=== PATIENT | male | born 1985 | race Caucasian/White ===

== ENCOUNTER 2018-05-20 17:40 | Observation (INO) | payer BC ==
[2018-05-20] MEDS ORDERED: NITROGLYCERIN 0.4 MG/TAB SL ONE (18:14)
[2018-05-20] MEDS ORDERED: NA CHLORIDE 0.9% 1,000 ML ONE (18:14)
[2018-05-20 18:23] LABS: Absolute Lymphocytes (CBC) 2.8 K/uL (0.7-4.9); Absolute Monocytes 0.7 K/uL (0.1-1.3); Absolute Neutrophil 5.1 K/uL (1.8-8.0); Basophils % 0.5 % (0-1.3); Eosinophils % 2.9 % (0-4.4); Hematocrit 41.5 % (39.6-49.0); MCV 88.6 fL (80-100); MPV 8.3 fL (7.6-11.3); Monocytes % 7.9 % (3.3-12.3); RBC Red Blood Cell Count 4.69 M/uL (4.33-5.43)
[2018-05-20 18:27] LABS: Protime INR 0.94
[2018-05-20] MEDS ORDERED: ACETAMINOPHEN 500 MG TAB ONE (18:43)
[2018-05-20 18:52] LABS: ALT/SGPT 59 U/L (12-78); AST/SGOT 33 U/L (15-37); Albumin 3.9 g/dL (3.4-5.0); Alkaline Phosphatase 92 U/L (45-117); BUN Blood Urea Nitrogen 11 mg/dL (7-18); Bicarbonate 27 mmol/L (21-32); Bilirubin Direct < 0.1 mg/dL (0-0.2); Bilirubin Total 0.4 mg/dL (0.2-1.0); Glucose Level 110 mg/dL (74-106); Magnesium 1.8 mg/dL (1.8-2.4); NT PRO-BNP 12 pg/mL (<125); Protein, Total 7.9 g/dL (6.4-8.2); Sodium Level 138 mmol/L (136-145); Troponin (Emerg Dept Use Only) < 0.02 ng/mL (0.0-0.045)
[2018-05-20 18:58] LABS: Urine Blood NEGATIVE (NEG); Urine Glucose NEGATIVE (NEG); Urine Protein NEGATIVE (NEG)
[2018-05-20] MEDS ORDERED: METOPROLOL TAR 25 MG TAB ONE (19:04)
[2018-05-20] MEDS ORDERED: ASPIRIN 81 MG CHEWABLE TABLET ONE (19:04)
[2018-05-20 19:05] LABS: Barbiturates NEGATIVE (NEGATIVE); Benzodiazepines NEGATIVE (NEGATIVE); Cocaine NEGATIVE (NEGATIVE); METHAMPHETAM NEGATIVE (NEGATIVE); Methadone NEGATIVE (NEGATIVE); Opiates NEGATIVE (NEGATIVE); Phencyclidine NEGATIVE (NEGATIVE); THC Cannibis NEGATIVE (NEGATIVE)
--- NOTE | 2018-05-20 19:18 | RAD REPORT ---
EXAM DESCRIPTION: RAD - Chest Single View - 05/20/2018 6:21 pm CLINICAL HISTORY: Chest pain COMPARISON: None. TECHNIQUE: AP portable chest image was obtained 1815 hours . FINDINGS: Lung volumes are low accentuating lung markings. No peripheral mass, consolidation or fail ure. Heart and vasculature are normal. No measurable pleural effusion and no pneumothorax. No acute b mayuri abnormality seen. No acute aortic findings suspected. IMPRESSION: No acute cardiopulmonary process.
--- NOTE | 2018-05-20 20:50 | ER ---
Nurse's Notes [facility] Name: Raman Aragon Age: 32 yrs Sex: Male : 1985 Arrival Date: 05/20/2018 Time: 17:41 Bed 23 Private MD: Diagnosis: Chest pain, unspecified;Abnormal electrocardiogram [ECG] [EKG] Presentation: 05/20 17:47 Transition of care: patient was not received from another setting of care. aa5 17:47 Method Of Arrival: Ambulatory aa5 17:47 Presenting complaint: Patient states: mid-sternal chest pressure that began this aa5 morning. Pt states "my blood pressure was 180/110 this morning". Pt also reports SOB. Onset of symptoms was May 20, 2018. Risk Assessment: Do you want to hurt yourself or someone else? Patient reports no desire to harm self or others. Initial Sepsis Screen: Does the patient meet any 2 criteria? No. Patient's initial sepsis screen is negative. Does the patient have a suspected source of infection? No. Patient's initial sepsis screen is negative. Care prior to arrival: None. 17:47 Acuity: JOSÉ MANUEL 3 aa5 Historical: - Allergies: 17:47 No Known Allergies; aa5 - PMHx: 17:47 None; aa5 - PSHx: 17:47 Cholecystectomy; aa5 - Immunization history:: Flu vaccine is not up to date. - Social history:: Smoking status: Patient uses tobacco products, smokes one pack cigarettes per day. - Ebola Screening: : No symptoms or risks identified at this time. Screenin:00 Abuse screen: Denies threats or abuse. Denies injuries from another. Nutritional mg2 screening: No deficits noted. Tuberculosis screening: No symptoms or risk factors identified. Fall Risk IV access (20 points). Assessment: 18:00 General: Appears in no apparent distress. comfortable, Behavior is calm, cooperative. mg2 Pain: Complains of pain in central chest Pain does not radiate. Pain currently is 5 out of 10 on a pain scale. Quality of pain is described as pressure, Pain began gradually, 10 in the morning today Is intermittent. Neuro: Level of Consciousness is awake, alert, obeys commands, Oriented to person, place, time, situation. Cardiovascular: Capillary refill < 3 seconds Patient's skin is warm and dry. Respiratory: Airway is patent Respiratory effort is even, unlabored, Respiratory pattern is regular, symmetrical. GI: No signs and/or symptoms were reported involving the gastrointestinal system. : No signs and/or symptoms were reported regarding the genitourinary system. EENT: No signs and/or symptoms were reported regarding the EENT system. Derm: Skin is intact, is healthy with good turgor, Skin is pink, warm \\T\\ dry. normal. Musculoskeletal: No signs and/or symptoms reported regarding the musculoskeletal system. Vital Signs: 17:50 BP 151 / 97; Pulse 90; Resp 18 S; Temp 99.1(O); Pulse Ox 99% on R/A; Weight 96.16 kg aa5 (R); Height 5 ft. 10 in. (177.80 cm) (R); Pain 6/10; 18:32 BP 138 / 86; Pulse 92; Resp 18; Pulse Ox 97% on R/A; Pain 5/10; mg2 20:00 BP 138 / 91; Pulse 81; Resp 18; Pulse Ox 98% on R/A; mg2 21:16 BP 138 / 85; Pulse 75; Resp 18; Pulse Ox 100% on R/A; mg2 22:18 BP 131 / 93; Pulse 78; Resp 18; Pulse Ox 100% on R/A; Pain 6/10; mg2 17:50 Body Mass Index 30.42 (96.16 kg, 177.80 cm) aa5 ED Course: 17:41 Patient arrived in ED. tw3 17:47 Arm band placed on. aa5 17:48 Dyllan Servin PA is PHCP. cp 17:48 Holland Mcgregor MD is Attending Physician. cp 17:55 Triage completed. aa5 17:59 Ankit Dotson, ELIA is Primary Nurse. mg2 18:00 No provider procedures requiring assistance completed. Inserted saline lock: 20 gauge mg2 in right antecubital area, using aseptic technique. Blood collected. Patient maintains SpO2 saturation greater than 95% on room air. 18:02 Patient has correct armband on for positive identification. front desk monitor on. Pulse mg2 ox on. NIBP on. 18:05 EKG done, by chemistry technician. reviewed by Dyllan TRACY. 3 18:17 X-ray completed. Portable x-ray completed in exam room. Patient tolerated procedure ml well. 18:21 XRAY Chest (1 view) In Process Unspecified. EDMS 20:49 Tara Alonso MD is Hospitalizing Provider. cp 22:32 Patient admitted, IV remains in place. mg2 Administered Medications: 18:11 Drug: NS 0.9% 1000 ml Route: IV; Rate: 1 bolus; Site: right antecubital; mg2 20:07 Follow up: Response: No adverse reaction; IV Status: Completed infusion mg2 18:11 Drug: Nitroglycerin 0.4 mg Route: Sublingual; mg2 18:26 Drug: Nitroglycerin 0.4 mg Route: Sublingual; mg2 20:06 Follow up: Response: No adverse reaction mg2 18:44 Drug: Tylenol 1000 mg Route: PO; mg2 20:05 Follow up: Response: No adverse reaction; Marked relief of symptoms mg2 20:05 Follow up: Response: No adverse reaction; Marked relief of symptoms mg2 19:03 Drug: Metoprolol 25 mg Route: PO; mg2 20:05 Follow up: Response: No adverse reaction; Marked relief of symptoms mg2 19:03 Drug: Aspirin Chewable Tablet 324 mg Route: PO; mg2 20:06 Follow up: Response: No adverse reaction; Marked relief of symptoms mg2 22:26 Drug: morphine 2 mg Route: IVP; Site: right antecubital; mg2 22:33 Follow up: Response: No adverse reaction mg2 Outcome: 20:49 Decision to Hospitalize by Provider. cp 22:32 Admitted to Tele accompanied by tech, via wheelchair, room 404, with chart, Report mg2 called to ELIA Mcallister 22:32 Condition: stable 22:32 Instructed on the need for admit, Demonstrated understanding of instructions. 22:50 Patient left the ED. mg2 Signatures: Dispatcher [employer] Glory Garcia Audri, RN RN aa5 Dyllan Servin PA PA cp Erlin, Tia tw3 Ankit Dotson RN RN mg2 Queta Townsend 3
--- NOTE | 2018-05-20 20:50 | EDPHYS ---
Physician Documentation [facility] Name: Raman Aragon Age: 32 yrs Sex: Male : 1985 Arrival Date: 05/20/2018 Time: 17:41 Bed 23 Private MD: ED Physician Holland Mcgregor HPI: 05/20 18:10 This 32 yrs old Male presents to ER via Ambulatory with complaints of Chest cp Pain. Historical: - Allergies: 17:47 No Known Allergies; aa5 - PMHx: 17:47 None; aa5 - PSHx: 17:47 Cholecystectomy; aa5 - Immunization history:: Flu vaccine is not up to date. - Social history:: Smoking status: Patient uses tobacco products, smokes one pack cigarettes per day. - Ebola Screening: : No symptoms or risks identified at this time. ROS: 18:15 Constitutional: Negative for body aches, chills, fever, poor PO intake. cp 18:15 Eyes: Negative for injury, pain, redness, and discharge. cp 18:15 ENT: Negative for drainage from ear(s), ear pain, sore throat, difficulty swallowing, difficulty handling secretions. 18:15 Cardiovascular: Positive for chest pain, Negative for edema, palpitations. 18:15 Respiratory: Positive for shortness of breath, Negative for cough, wheezing. 18:15 Abdomen/GI: Negative for abdominal pain, nausea, vomiting, and diarrhea, anorexia, black/tarry stool, rectal bleeding. 18:15 Back: Negative for pain at rest, pain with movement, radiated pain. 18:15 : Negative for urinary symptoms. 18:15 Skin: Negative for cellulitis, rash. 18:15 Neuro: Negative for altered mental status, headache, syncope, near syncope, weakness. 18:15 All other systems are negative. Exam: 18:00 ECG was reviewed by the Attending Physician. cp 18:18 Constitutional: The patient appears in no acute distress, alert, awake, cp non-diaphoretic, non-toxic, well developed, well nourished. 18:18 Head/Face: Normocephalic, atraumatic. Eyes: Pupils equal round and reactive to light, cp extra-ocular motions intact. Lids and lashes normal. Conjunctiva and sclera are non-icteric and not injected. Cornea within normal limits. Periorbital areas with no swelling, redness, or edema. ENT: Nares patent. No nasal discharge, no septal abnormalities noted. Tympanic membranes are normal and external auditory canals are clear. Oropharynx with no redness, swelling, or masses, exudates, or evidence of obstruction, uvula midline. Mucous membranes moist. Neck: Trachea midline, no thyromegaly or masses palpated, and no cervical lymphadenopathy. Supple, full range of motion without nuchal rigidity, or vertebral point tenderness. No Meningismus. Chest/axilla: Normal chest wall appearance and motion. Nontender with no deformity. No lesions are appreciated. 18:18 Cardiovascular: Rate: normal, Rhythm: regular, Pulses: Pulses are 2+ in right radial artery and left radial artery. Heart sounds: murmur, not appreciated, rub, not appreciated, gallop, not appreciated, Edema: is not appreciated, JVD: is not appreciated. 18:18 Respiratory: the patient does not display signs of respiratory distress, Respirations: normal, no use of accessory muscles, no retractions, no splinting, no tachypnea, labored breathing, is not present, Breath sounds: are clear throughout, no decreased breath sounds, no stridor, no wheezing. 18:18 Abdomen/GI: Inspection: abdomen appears normal, Bowel sounds: active, all quadrants, Palpation: abdomen is soft and non-tender, in all quadrants, rebound tenderness, is not appreciated, voluntary guarding, is not appreciated, involuntary guarding, is not appreciated. 18:18 Back: pain, is absent, ROM is normal. 18:18 Skin: cellulitis, is not appreciated, no rash present. 18:18 Neuro: Orientation: to person, place \T\ time. Mentation: lucid, able to follow commands, Cerebellar function: is grossly normal, Motor: moves all fours, strength is normal, Sensation: no obvious gross deficits. 22:38 ECG was reviewed by the Attending Physician. cp Vital Signs: 17:50 BP 151 / 97; Pulse 90; Resp 18 S; Temp 99.1(O); Pulse Ox 99% on R/A; Weight 96.16 kg aa5 (R); Height 5 ft. 10 in. (177.80 cm) (R); Pain 6/10; 18:32 BP 138 / 86; Pulse 92; Resp 18; Pulse Ox 97% on R/A; Pain 5/10; mg2 20:00 BP 138 / 91; Pulse 81; Resp 18; Pulse Ox 98% on R/A; mg2 21:16 BP 138 / 85; Pulse 75; Resp 18; Pulse Ox 100% on R/A; mg2 22:18 BP 131 / 93; Pulse 78; Resp 18; Pulse Ox 100% on R/A; Pain 6/10; mg2 17:50 Body Mass Index 30.42 (96.16 kg, 177.80 cm) aa5 MDM: 17:48 Patient medically screened. cp 19:30 Data reviewed: vital signs, nurses notes, lab test result(s), EKG, radiologic studies, cp plain films, and as a result, I will admit patient. 19:30 Test interpretation: by ED physician or midlevel provider: ECG, plain radiologic cp studies. 05/20 18:03 Order name: Basic Metabolic Panel; Complete Time: 19:04 cp 05/20 19:15 Interpretation: Normal except: GLUC 110; GFR 87; CA 8.4. 05/20 18:03 Order name: CBC with Diff; Complete Time: 19:04 cp 05/20 19:15 Interpretation: Normal except: MCHC 36.2. cp 05/20 18:03 Order name: LFT's; Complete Time: 19:04 cp 05/20 19:15 Interpretation: Normal except: GLOB 4.0; A/G 1.0. cp 05/20 18:03 Order name: Magnesium; Complete Time: 19:04 cp 05/20 18:03 Order name: NT PRO-BNP; Complete Time: 19:04 cp 05/20 18:03 Order name: PT-INR; Complete Time: 19:04 cp 05/20 18:03 Order name: Troponin (emerg Dept Use Only); Complete Time: 19:04 cp 05/20 18:03 Order name: XRAY Chest (1 view) cp 05/20 18:32 Order name: UDS; Complete Time: 19:14 cp 05/20 19:15 Interpretation: Reviewed. 05/20 18:51 Order name: Urine Dipstick--Ancillary (enter results); Complete Time: 19:04 eb 05/20 17:48 Order name: EKG; Complete Time: 17:49 cp 05/20 17:48 Order name: EKG - Nurse/Tech; Complete Time: 18:05 cp 05/20 18:03 Order name: Cardiac monitoring; Complete Time: 18:05 cp 05/20 18:03 Order name: IV Saline Lock; Complete Time: 18:05 cp 05/20 18:03 Order name: Labs collected and sent; Complete Time: 18:05 cp 05/20 18:03 Order name: O2 Per Protocol; Complete Time: 18:05 cp 05/20 18:03 Order name: O2 Sat Monitoring; Complete Time: 18:05 cp 05/20 18:32 Order name: Urine Dipstick-Ancillary (obtain specimen); Complete Time: 18:44 cp 05/20 21:26 Order name: NPO EDMS 05/20 22:33 Order name: EKG - Nurse/Tech; Complete Time: :33 mg2 EC:00 Rate is 94 beats/min. Rhythm is regular. NH interval is normal. QRS interval is normal cp at 100 msec. QT interval is normal. T waves are Inverted in lead III. Interpreted by me. Reviewed by me. 22:38 Rate is 76 beats/min. Rhythm is regular. NH interval is normal. QRS interval is normal. cp QT interval is normal. T waves are Inverted in lead III. Interpreted by me. Reviewed by me. Administered Medications: 18:11 Drug: NS 0.9% 1000 ml Route: IV; Rate: 1 bolus; Site: right antecubital; mg2 20:07 Follow up: Response: No adverse reaction; IV Status: Completed infusion mg2 18:11 Drug: Nitroglycerin 0.4 mg Route: Sublingual; mg2 18:26 Drug: Nitroglycerin 0.4 mg Route: Sublingual; mg2 20:06 Follow up: Response: No adverse reaction mg2 18:44 Drug: Tylenol 1000 mg Route: PO; mg2 20:05 Follow up: Response: No adverse reaction; Marked relief of symptoms mg2 20:05 Follow up: Response: No adverse reaction; Marked relief of symptoms mg2 19:03 Drug: Metoprolol 25 mg Route: PO; mg2 20:05 Follow up: Response: No adverse reaction; Marked relief of symptoms mg2 19:03 Drug: Aspirin Chewable Tablet 324 mg Route: PO; mg2 20:06 Follow up: Response: No adverse reaction; Marked relief of symptoms mg2 22:26 Drug: morphine 2 mg Route: IVP; Site: right antecubital; mg2 22:33 Follow up: Response: No adverse reaction mg2 Disposition: 05/21 06:06 Co-signature as Attending Physician, Holland Mcgregor MD I agree with the assessment and kdr plan of care. Disposition: 05/20/18 20:49 Hospitalization ordered by Tara Alonso for Observation. Preliminary diagnosis are Chest pain, unspecified, Abnormal electrocardiogram [ECG] [EKG]. - Bed requested for Telemetry/MedSurg (observation). - Status is Observation. mg2 - Condition is Stable. - Problem is new. - Symptoms have improved. UTI on Admission? No Signatures: Dispatcher [employer] EDMS Helen Luo RN RN Holland Diaz MD MD kdr Jo Ann Kay RN RN aa5 Dyllan Servin PA PA cp Ankit Dotson RN RN mg2 Corrections: (The following items were deleted from the chart) 05/20 19:15 19:15 Normal except: GLUC 110; GFR 87. cp cp 21:19 20:49 Hospitalization Ordered by Tara Alonso MD for Observation. Preliminary cp diagnosis is Chest pain, unspecified. Bed requested for Telemetry/MedSurg (observation). Status is Observation. Condition is Stable. Problem is new. Symptoms have improved. UTI on Admission? No. cp 22:09 21:19 05/20/2018 20:49 Hospitalization Ordered by Tara Alonso MD for Observation. kl Preliminary diagnosis is Chest pain, unspecified; Abnormal electrocardiogram [ECG] [EKG]. Bed requested for Telemetry/MedSurg (observation). Status is Observation. Condition is Stable. Problem is new. Symptoms have improved. UTI on Admission? No. cp 22:50 22:09 05/20/2018 20:49 Hospitalization Ordered by Tara Alonso MD for Observation. mg2 Preliminary diagnosis is Chest pain, unspecified; Abnormal electrocardiogram [ECG] [EKG]. Bed requested for Telemetry/MedSurg (observation). Status is Observation. Condition is Stable. Problem is new. Symptoms have improved. UTI on Admission? No. kl
--- NOTE | 2018-05-20 21:22 | P.HP ---
Certification for Inpatient Patient admitted to: Observation With expected LOS: <2 Midnights Practitioner: I am a practitioner with admitting privileges, knowledge of patient current condition, hospital course, and medical plan of care. Services: Services provided to patient in accordance with Admission requirements found in Title 42 Section 412.3 of the Code of Federal Regulations Patient History Date of Service: 05/20/18 Reason for admission: Chest pain History of Present Illness: Mr Aragon is a year-old male who has a strong family history of young age CAD, tobacco abuse, who came to ER complaining of chest pain. His symptoms started this afternoon, he described pressure-like pain located in substernal area, 8/ 10 of intensity, radiating to his left arm, associated with shortness of breath. He denied any nausea, vomiting or palpitations. He was also feeling more drowsy today. Home his BP was 180/110. He has had this kind of symptom before. Initial troponin I is negative, EKG shows T-wave inversion in inferior leads. Home medications list reviewed: Yes - Past Medical/Surgical History -: Tobacco abuse Past Surgical History: Reviewed- Non-Contributory - Family History Father -: Heart disease - Social History Smoking Status: Current every day smoker Counseled patient to stop smoking for: less than 10 minutes CD- Drugs: No Place of Residence: Home Review of Systems 10-point ROS is otherwise unremarkable Physical Examination - Physical Exam General: Alert, In no apparent distress HEENT: Atraumatic, PERRLA, Mucous membr. moist/pink, EOMI, Sclerae nonicteric Neck: Supple, 2+ carotid pulse no bruit, No LAD, Without JVD or thyroid abnormality Respiratory: Clear to auscultation bilaterally, Normal air movement Cardiovascular: Regular rate/rhythm, Normal S1 S2 Gastrointestinal: Normal bowel sounds, No tenderness Musculoskeletal: No tenderness Integumentary: No rashes Neurological: Normal speech, Normal strength at 5/5 x4 extr, Normal tone, Normal affect Lymphatics: No axilla or inguinal lymphadenopathy - Studies Laboratory Data (last 24 hrs) 05/20/18 18:00: PT 11.1, INR 0.94 05/20/18 18:00: WBC 8.9, Hgb 15.0, Hct 41.5, Plt Count 272 05/20/18 18:00: Sodium 138, Potassium 4.0, BUN 11, Creatinine 1.00, Glucose 110 H, Magnesium 1.8, Total Bilirubin 0.4, AST 33, ALT 59, Alkaline Phosphatase 92 Assessment and Plan - Problems (Diagnosis) (1) Chest pain Current Visit: Yes Status: Acute Qualifiers: Chest pain type: precordial pain Qualified Code(s): R07.2 - Precordial pain (2) Tobacco abuse Current Visit: Yes Status: Acute (3) Hypertension Current Visit: Yes Status: Acute Qualifiers: Hypertension type: essential hypertension Qualified Code(s): I10 - Essential (primary) hypertension - Plan The patient will be admitted to the hospital due to chest pain in order to rule out ACS. Initial cardiac enzymes are negative, EKG remarkable for T-wave inversion in inferior leads, will consult Cardiology team for evaluation recommendation. - Advance Directives Does patient have a Living Will: No Does patient have a Durable POA for Healthcare: No - Code Status/Comfort Care Code Status Assessed: Yes Code Status: Full Code
[2018-05-20] MEDS ORDERED: MORPHINE 4 MG/ML SYR ONE (22:28)
[2018-05-20 22:58] VITALS: O2SAT 100
[2018-05-20] MEDS ORDERED: KETOROLAC 30 MG/ML INJ IV PRN (23:00)
[2018-05-20] MEDS ORDERED: TRAZODONE 50 MG TABLET PO ONE (23:18)
[2018-05-21 02:03] VITALS: BMI 30.4
--- NOTE | 2018-05-21 04:17 | EKG ---
Test Date: 2018-05-20 Test Time: 17:54:44 Outdoor Studies Director: GRIFFIN MEASUREMENT RESULTS: Intervals: Rate: 94 MS: 124 QRSD: 100 QT: 336 QTc: 420 Gillett: P: 47 MS: 124 QRS: 63 T: -11 INTERPRETIVE STATEMENTS: Normal sinus rhythm T wave abnormality, consider inferior ischemia Abnormal ECG No previous ECG available for comparison Electronically Signed On 05-21-18 04:17:05 CDT by Bebo Jane
[2018-05-21 06:57] LABS: HDL Cholesterol 40 mg/dL (40-60); LDL Cholesterol, Calculated ND (<130)
[2018-05-21 07:15] LABS: LDL, Direct 218 mg/dL (100-129)
[2018-05-21 08:24] VITALS: BP 126/63; TEMP 97.2
[2018-05-21] MEDS ORDERED: ENOXAPARIN 40 MG/0.4 ML SQ SCH (09:00)
[2018-05-21] MEDS ORDERED: ASPIRIN EC 81 MG TAB PO SCH (09:00)
--- NOTE | 2018-05-21 10:10 | P.DS ---
Admission Date: 05/20/18 Discharge Date: 05/21/18 Primary Care Provider: None Disposition: AMA-LEFT AGAINST MEDICAL ADVIC Discharge Condition: GOOD Reason for Admission: Chest pain Consultations: Cardiology Procedures: Medical problem list: Chest pain with family history of CAD Hyperlipidemia Tobacco abuse Elevated blood pressure without hypertension Brief History of Present Illness: 32-year-old male presented emergency room with chest pain. Patient evaluated the emergency room. Patient admitted for further evaluation. Initial cardiac enzymes unremarkable. Hospital Course: Patient presented with chest pain. Cardiac enzymes unremarkable. Patient was to see cardiology for further recommendation. Patient decided not to wait. Patient left against medical advice. At discharge recommendation is to continue with aspirin 81 mg daily. Recommendation is for the patient to follow up with cardiology as an outpatient for further evaluation. Patient will require outpatient cardiac evaluation due to family history of CAD. Patient had elevation in blood pressure upon arrival. Blood pressures remained stable during the course of his stay. Patient will need to continue to monitor blood pressures closely at home. If blood pressures remain above 140/90 consistently the patient may require medication. This can be further addressed by his PCP. Patient has hyperlipidemia. Lab showed triglycerides 419, total cholesterol 304 , LDL 218, HDL 40. Recommendation to recheck lab-fasting lipid panel in 4-6 weeks. If still elevated, patient will require medication. This can be further addressed by his PCP. Patient with tobacco abuse. Tobacco cessation education addressed in detail. Recommendation to follow up with his PCP to further evaluate and manage. Patient with obesity. BMI 30.4. Lifestyle modification education will be provided at discharge. Vital Signs/Physical Exam: Temp Pulse Resp BP Pulse Ox 97.2 F 65 20 126/63 95 05/21/18 08:00 05/21/18 08:00 05/21/18 08:00 05/21/18 08:00 05/21/18 08:00 General: Alert, In no apparent distress, Oriented x3, Cooperative HEENT: Atraumatic Neck: Supple Respiratory: Clear to auscultation bilaterally, Normal air movement Cardiovascular: Normal pulses, Regular rate/rhythm Gastrointestinal: Normal bowel sounds, Soft and benign, Non-distended, No tenderness, No masses, No rebound, No guarding Musculoskeletal: No erythema, No tenderness, No warmth Integumentary: No tenderness/swelling, No erythema, No warmth, No cyanosis Neurological: Normal speech, Normal strength at 5/5 x4 extr, Normal tone, Normal affect Laboratory Data at Discharge: WBC 8.9 K/uL (4.3-10.9) 05/20/18 18:00 Hgb 15.0 g/dL (13.6-17.9) 05/20/18 18:00 Hct 41.5 % (39.6-49.0) 05/20/18 18:00 Plt Count 272 K/uL (152-406) 05/20/18 18:00 PT 11.1 SECONDS (9.5-12.5) 05/20/18 18:00 INR 0.94 05/20/18 18:00 Sodium 138 mmol/L (136-145) 05/20/18 18:00 Potassium 4.0 mmol/L (3.5-5.1) 05/20/18 18:00 BUN 11 mg/dL (7-18) 05/20/18 18:00 Creatinine 1.00 mg/dL (0.55-1.3) 05/20/18 18:00 Glucose 110 mg/dL (74-106) H 05/20/18 18:00 Magnesium 1.8 mg/dL (1.8-2.4) 05/20/18 18:00 Total Bilirubin 0.4 mg/dL (0.2-1.0) 05/20/18 18:00 AST 33 U/L (15-37) 05/20/18 18:00 ALT 59 U/L (12-78) 05/20/18 18:00 Alkaline Phosphatase 92 U/L (45-117) 05/20/18 18:00 Troponin I < 0.02 ng/mL (0.0-0.045) 05/21/18 07:57 Triglycerides 419 mg/dL (<150) H 05/21/18 05:37 Cholesterol 304 mg/dL (<200) H 05/21/18 05:37 LDL Cholesterol Direct 218 mg/dL (100-129) H 05/21/18 05:37 HDL Cholesterol 40 mg/dL (40-60) 05/21/18 05:37 Cholesterol/HDL Ratio 7.60 05/21/18 05:37 Home Medications: Aspirin [Aspirin EC 81 MG] 81 mg PO DAILY #90 tablet. 05/21/18 New Medications: Aspirin [Aspirin EC 81 MG] 81 mg PO DAILY #90 tablet. Patient Discharge Instructions: 1. Patient will need to follow up with a PCP in 1-2 weeks to follow up this hospitalization and establish care. 2. Patient presented with chest pain. Cardiac enzymes unremarkable. Patient was to see cardiology for further recommendation but Patient decided not to wait. Patient left against medical advice. At discharge recommendation is to continue with aspirin 81 mg daily. Recommendation is for the patient to follow up with cardiology as an outpatient for further evaluation. Patient will require outpatient cardiac evaluation due to family history of CAD. 3. Patient had elevation in blood pressure upon arrival. Blood pressures remained stable during the course of his stay. Patient will need to continue to monitor blood pressures closely at home. If blood pressures remain above 140/90 consistently the patient may require medication. This can be further addressed by his PCP. 4. Patient has hyperlipidemia. Lab showed triglycerides 419, total cholesterol 304, LDL 218, HDL 40. Recommendation to recheck lab-fasting lipid panel in 4-6 weeks. If still elevated, patient will require medication. This can be further addressed by his PCP. 5. Patient with tobacco abuse. Tobacco cessation education addressed in detail. Recommendation to follow up with his PCP to further evaluate and manage. 6. Patient with obesity. BMI 30.4. Lifestyle modification education will be provided at discharge. Diet: AHA Activity: Ad cortes Time spent managing pt's care (in minutes): 55
--- NOTE | 2018-05-22 17:37 | EKG ---
Test Date: 2018-05-20 Test Time: 22:30:43 Timing Machine Operator: GUS MEASUREMENT RESULTS: Intervals: Rate: 76 OR: 126 QRSD: 100 QT: 358 QTc: 402 Nelson: P: 39 OR: 126 QRS: 55 T: -17 INTERPRETIVE STATEMENTS: Normal sinus rhythm T wave abnormality, consider inferior ischemia Abnormal ECG Compared to ECG 05/20/2018 17:54:44 No significant changes Electronically Signed On 05-22-18 17:33:53 CDT by Bebo Jane
== END 2018-05-21 10:20 | disposition left against medical advice (07) ==
LOC: ER 17:40 → ERHOLD 21:14 → 4TH 22:33
PROVIDERS: ADMIT Internal Medicine; ATTEND Internal Medicine
DX: R07.9 Chest pain, unspecified (principal); E78.5 Hyperlipidemia, unspecified; F17.210 Nicotine dependence, cigarettes, uncomplicated; R03.0 Elevated blood-pressure reading, without diagnosis of hypertension; Z82.49 Family history of ischemic heart disease and other diseases of the circulatory system; E66.9 Obesity, unspecified; Z68.30 Body mass index [BMI] 30.0-30.9, adult
CPT/HCPCS: 36415; 71045; 80048; 80061; 80076; 80307; 81003; 83735; 83880; 84484; 85025; 85610; 93005; 96361; 96374; 99285; G0378; J1650; J7030

== ENCOUNTER 2018-08-02 10:51 | Emergency (ER) | payer BC ==
[2018-08-02] MEDS ORDERED: DIAZEPAM 5 MG TABLET ONE (12:33)
[2018-08-02] MEDS ORDERED: MORPHINE 4 MG/ML SYR ONE (12:34)
[2018-08-02] MEDS ORDERED: KETOROLAC 30 MG/ML INJ ONE (12:34)
[2018-08-02] MEDS ORDERED: ONDANSETRON 4 MG/2 ML VIAL ONE (12:34)
[2018-08-02] MEDS ORDERED: DEXAMETHASONE 4 MG/ML VIAL ONE (12:34)
--- NOTE | 2018-08-02 12:47 | RAD REPORT ---
EXAM DESCRIPTION: CT - Spine Lumbar Wo Con - 08/02/2018 12:18 pm CLINICAL HISTORY: Back pain, radiculopathy COMPARISON: CT imaging September 2014 TECHNIQUE: Thin section axial imaging of the lumbar spine was performed. Sagittal and coronal recon struction images were generated and reviewed. All CT scans are performed using dose optimization technique as appropriate and may include automated exposure control or mA/KV adjustment according to patient size. FINDINGS: Patient has a lumbosacral transition body labeled L5 for the purposes of this study. The L 5-S1 disc spaces nonmovable. The L5 body is sacralized. Lumbar body height and alignment are normal. No fracture or acute bone process seen. No paraspinal ma ss. The T12-L1, L1-2, L2-3 and L3-4 disc levels show no herniation or significant disc bulge. No canal or foramen stenosis. L4-5 is the lowest movable disc level for this patient. There is a bulging of disc material across th e central canal and into each exit foramen. Herniation is doubtful. No central spinal stenosis or sig nificant foraminal encroachment. Posterior aspect of the L4-5 disc space is narrowed. The L5-S1 disc level is the nonmovable disc level due to the sacralized L5 body. IMPRESSION: L4-5 disc bulge not causing canal or foramen stenosis. No other acute or suspicious finding noted. Lumbosacral transition body is present labeled L5 for the purposes of this study.
--- NOTE | 2018-08-02 12:53 | ER ---
Nurse's Notes [facility] Name: Raman Aragon Age: 32 yrs Sex: Male : 1985 Arrival Date: 08/02/2018 Time: 10:53 Bed 13 Private MD: Ezekiel Martinez T Diagnosis: Low back pain;Sciatica Presentation: 08/02 11:05 Presenting complaint: Patient states: "I feel like my tailbone is shoved into my, I ss guess, backbone? I'd really like an XRAY" Pt denies injury, reports pain began 3.5 weeks ago. Transition of care: patient was not received from another setting of care. Onset of symptoms was July 2018. Risk Assessment: Do you want to hurt yourself or someone else? Patient reports no desire to harm self or others. Initial Sepsis Screen: Does the patient meet any 2 criteria? No. Patient's initial sepsis screen is negative. Does the patient have a suspected source of infection? No. Patient's initial sepsis screen is negative. Care prior to arrival: None. 11:05 Method Of Arrival: Ambulatory ss 11:05 Acuity: JOSÉ MANUEL 4 ss Historical: - Allergies: 11:07 No Known Allergies; ss - Home Meds: 11:11 losartan 50 mg DAILY for High Blood Pressure [Active]; ss - PMHx: 11:09 Hypertension; ss - PSHx: 11:07 Cholecystectomy; I \\T\\ D; ss - Immunization history:: Adult Immunizations up to date. - Social history:: Smoking status: Patient uses tobacco products, smokes one pack cigarettes per day. - Ebola Screening: : Patient denies exposure to infectious person Patient denies travel to an Ebola-affected area in the 21 days before illness onset. - Family history:: not pertinent. Screenin:27 Abuse screen: Denies threats or abuse. Denies injuries from another. Nutritional jl7 screening: No deficits noted. Tuberculosis screening: No symptoms or risk factors identified. Fall Risk None identified. Assessment: 11:15 General: Appears in no apparent distress. uncomfortable, Behavior is calm, cooperative. jl7 Pain: Complains of pain in lumbar area Pain radiates to right leg and left leg Pain currently is 4 out of 10 on a pain scale. at worst was 10 out of 10 on a pain scale. Quality of pain is described as sharp, shooting, Pain began "5 months ago and it's gotten worse." Is intermittent, Alleviated by repositioning, Aggravated by weight bearing. Neuro: Level of Consciousness is awake, alert, obeys commands, Oriented to person, place, time, situation, Moves all extremities. Full function Gait is steady. Cardiovascular: Patient's skin is warm and dry. Respiratory: Airway is patent Respiratory effort is even, unlabored, Respiratory pattern is regular, symmetrical. Derm: Skin is pink, warm \\T\\ dry. 11:15 General: Pt states "I went to the chiropractor 5 months ago and he did an x-ray. The [facility] doc told me I had an extra vertebrae and adjusted me. The pain hasn't gone away and has just gotten worse. I walk fine but I cannot stay in one position while standing, sitting or laying. I have to constantly readjust. I took a whole bottle of Tylenol in the past few days because it just keeps hurting." Educated pt on the overuse of Tylenol and adverse reactions it will cause with continued overuse of acetaminophen and/or ibuprofen. Pt and pt's verbalized understanding. 12:15 Reassessment: Patient appears in no apparent distress at this time. No changes from [facility] previously documented assessment. Patient and/or family updated on plan of care and expected duration. Pain level reassessed. Patient is alert, oriented x 3, equal unlabored respirations, skin warm/dry/pink. 12:58 Reassessment: Pt will be discharged once results are back. [facility] Vital Signs: 11:07 BP 120 / 77; Pulse 79; Resp 16; Temp 98.9(O); Pulse Ox 97% on R/A; Weight 97.52 kg; Height 5 ft. 10 in. (177.80 cm); Pain 5/10; 12:30 BP 118 / 81; Pulse 82; Resp 16 S; Pulse Ox 97% on R/A; jl7 11:07 Body Mass Index 30.85 (97.52 kg, 177.80 cm) ED Course: 10:53 Patient arrived in ED. rg4 10:54 Ezekiel Martinez MD is Private Physician. rg4 11:07 Triage completed. 11:07 Arm band placed on right wrist. 11:11 Dyllan Jonas MD is Attending Physician. [facility] 11:13 Mariza Liu, ELIA is Primary Nurse. jl7 11:27 Patient has correct armband on for positive identification. Bed in low position. Call jl7 light in reach. Side rails up X 1. 12:17 CT Lumbar Spine Wo Con In Process Unspecified. EDWA 12:30 Initial lab(s) drawn, by me, sent to lab. Inserted saline lock: 22 gauge in right hand, jl7 using aseptic technique. Blood collected. 12:34 CT completed. Patient tolerated procedure well. Patient moved to CT patient refused vr wheelchair, felt less pain when walking. Patient moved back from CT. 12:53 Ezekiel Martinez MD is Referral Physician. [facility] 12:53 Nigel Munoz MD is Referral Physician. [facility] 13:22 No provider procedures requiring assistance completed. IV discontinued, intact, jl7 bleeding controlled, No redness/swelling at site. Pressure dressing applied. Administered Medications: 12:30 Drug: Valium 5 mg Route: PO; jl7 13:22 Follow up: Response: No adverse reaction; Pain is decreased jl7 12:31 Drug: Zofran 4 mg Route: IVP; Site: right antecubital; jl7 13:24 Follow up: Response: No adverse reaction jl7 12:33 Drug: morphine 4 mg Route: IVP; Site: right antecubital; jl7 13:00 Follow up: Response: No adverse reaction; Pain is decreased jl7 12:38 Drug: Decadron - Dexamethasone 10 mg Route: IVP; Site: right antecubital; jl7 13:24 Follow up: Response: No adverse reaction; Pain is decreased jl7 12:45 Drug: TORadol 30 mg Route: IVP; Site: right antecubital; jl7 13:24 Follow up: Response: No adverse reaction; Pain is decreased jl7 Outcome: 12:53 Discharge ordered by . radha 13:22 Discharged to home ambulatory. jl7 13:22 Condition: stable 13:22 Discharge instructions given to patient, family, Instructed on discharge instructions, follow up and referral plans. medication usage, Demonstrated understanding of instructions, follow-up care, medications. 13:27 Patient left the ED. jl7 Signatures: Dispatcher [employer] EDWA Dyllan Jonas MD MD cha Smirch, Shelby, RN RN Swapna Zamudio Rubi 4 Mariza Liu RN RN jl7 Corrections: (The following items were deleted from the chart) [place] Meds: None; [facility] PMHx: None; [facility]
--- NOTE | 2018-08-02 12:53 | EDPHYS ---
Physician Documentation [facility] Name: Raman Aragon Age: 32 yrs Sex: Male : 1985 Arrival Date: 08/02/2018 Time: 10:53 Bed 13 Private MD: Ezekiel Martinez T ED Physician Dyllan Jonas HPI: 08/02 12:03 This 32 yrs old Male presents to ER via Ambulatory with complaints of Back radha Pain. 12:03 The patient presents with pain that is acute, with no known mechanism of injury. The radha symptoms are located in the low back. Onset: The symptoms/episode began/occurred 3 day(s) ago. The pain radiates to the left low back and right low back. Associated signs and symptoms: The patient has no apparent associated signs or symptoms. The problem was sustained from unknown cause. Severity of symptoms: At their worst the symptoms were mild, moderate, in the emergency department the symptoms are unchanged. The patient has not experienced similar symptoms in the past. Historical: - Allergies: 11:07 No Known Allergies; ss - Home Meds: 11:11 losartan 50 mg DAILY for High Blood Pressure [Active]; ss - PMHx: 11:09 Hypertension; ss - PSHx: 11:07 Cholecystectomy; I \T\ D; ss - Immunization history:: Adult Immunizations up to date. - Social history:: Smoking status: Patient uses tobacco products, smokes one pack cigarettes per day. - Ebola Screening: : Patient denies exposure to infectious person Patient denies travel to an Ebola-affected area in the 21 days before illness onset. - Family history:: not pertinent. ROS: 12:03 Constitutional: Negative for fever, chills, and weight loss, Eyes: Negative for injury, radha pain, redness, and discharge, ENT: Negative for injury, pain, and discharge, Neck: Negative for injury, pain, and swelling, Cardiovascular: Negative for chest pain, palpitations, and edema, Respiratory: Negative for shortness of breath, cough, wheezing, and pleuritic chest pain, Abdomen/GI: Negative for abdominal pain, nausea, vomiting, diarrhea, and constipation, : Negative for injury, bleeding, discharge, and swelling, MS/Extremity: Negative for injury and deformity, Skin: Negative for injury, rash, and discoloration, Neuro: Negative for headache, weakness, numbness, tingling, and seizure, Psych: Negative for depression, anxiety, suicide ideation, homicidal ideation, and hallucinations, Allergy/Immunology: Negative for hives, rash, and allergies, Endocrine: Negative for neck swelling, polydipsia, polyuria, polyphagia, and marked weight changes, Hematologic/Lymphatic: Negative for swollen nodes, abnormal bleeding, and unusual bruising. 12:03 Back: Positive for decreased range of motion, pain at rest, pain with movement, of the lumbar area and sacrum. Exam: 12:03 Constitutional: This is a well developed, well nourished patient who is awake, alert, radha and in no acute distress. Head/Face: Normocephalic, atraumatic. Eyes: Pupils equal round and reactive to light, extra-ocular motions intact. Lids and lashes normal. Conjunctiva and sclera are non-icteric and not injected. Cornea within normal limits. Periorbital areas with no swelling, redness, or edema. ENT: Nares patent. No nasal discharge, no septal abnormalities noted. Tympanic membranes are normal and external auditory canals are clear. Oropharynx with no redness, swelling, or masses, exudates, or evidence of obstruction, uvula midline. Mucous membranes moist. Neck: Trachea midline, no thyromegaly or masses palpated, and no cervical lymphadenopathy. Supple, full range of motion without nuchal rigidity, or vertebral point tenderness. No Meningismus. Chest/axilla: Normal chest wall appearance and motion. Nontender with no deformity. No lesions are appreciated. Cardiovascular: Regular rate and rhythm with a normal S1 and S2. No gallops, murmurs, or rubs. Normal PMI, no JVD. No pulse deficits. Respiratory: Lungs have equal breath sounds bilaterally, clear to auscultation and percussion. No rales, rhonchi or wheezes noted. No increased work of breathing, no retractions or nasal flaring. Abdomen/GI: Soft, non-tender, with normal bowel sounds. No distension or tympany. No guarding or rebound. No evidence of tenderness throughout. Male : Normal genitalia with no discharge or lesions. Skin: Warm, dry with normal turgor. Normal color with no rashes, no lesions, and no evidence of cellulitis. MS/ Extremity: Pulses equal, no cyanosis. Neurovascular intact. Full, normal range of motion. Neuro: Awake and alert, GCS 15, oriented to person, place, time, and situation. Cranial nerves II-XII grossly intact. Motor strength 5/5 in all extremities. Sensory grossly intact. Cerebellar exam normal. Normal gait. Psych: Awake, alert, with orientation to person, place and time. Behavior, mood, and affect are within normal limits. 12:03 Back: pain, that is moderate, ROM is painful, normal spinal alignment noted, CVA tenderness, is absent, muscle spasm, is appreciated in the left low back, left mid back, right mid back and right low back. Vital Signs: 11:07 BP 120 / 77; Pulse 79; Resp 16; Temp 98.9(O); Pulse Ox 97% on R/A; Weight 97.52 kg; ss Height 5 ft. 10 in. (177.80 cm); Pain 5/10; 12:30 BP 118 / 81; Pulse 82; Resp 16 S; Pulse Ox 97% on R/A; jl7 11:07 Body Mass Index 30.85 (97.52 kg, 177.80 cm) ss MDM: 11:11 Patient medically screened. [facility] 12:04 Data reviewed: vital signs, nurses notes, lab test result(s), radiologic studies, CT [facility] scan. 08/02 12:02 Order name: CBC w/o diff [facility] 08/02 12:02 Order name: Chem 7 [facility] 08/02 12:02 Order name: CT Lumbar Spine Wo Con; Complete Time: 12:52 [facility] Administered Medications: 12:30 Drug: Valium 5 mg Route: PO; jl7 13:22 Follow up: Response: No adverse reaction; Pain is decreased jl7 12:31 Drug: Zofran 4 mg Route: IVP; Site: right antecubital; jl7 13:24 Follow up: Response: No adverse reaction jl7 12:33 Drug: morphine 4 mg Route: IVP; Site: right antecubital; jl7 13:00 Follow up: Response: No adverse reaction; Pain is decreased jl7 12:38 Drug: Decadron - Dexamethasone 10 mg Route: IVP; Site: right antecubital; jl7 13:24 Follow up: Response: No adverse reaction; Pain is decreased jl7 12:45 Drug: TORadol 30 mg Route: IVP; Site: right antecubital; jl7 13:24 Follow up: Response: No adverse reaction; Pain is decreased jl7 Disposition: 08/02/18 12:53 Discharged to Home. Impression: Low back pain, Sciatica. - Condition is Stable. - Discharge Instructions: Back Pain, Adult, Chronic Back Pain, Musculoskeletal Pain, Back Injury Prevention, Mizi-[id number]-Klkz, Back Pain, Adult, Sktx-hl-Wunb, Back Exercises, Vcjz-do-Lpss. - Prescriptions for Ibuprofen 600 mg Oral Tablet - take 1 tablet by ORAL route every 6 hours As needed take with food; 30 tablet. Skelaxin 800 mg Oral Tablet - take 1 tablet by ORAL route every 6 hours As needed; 40 tablet. Medrol (Derrek) 4 mg Oral Tablets, Dose Pack - take 1 tablet by ORAL route as directed - follow package instructions; 1 packet. Tramadol 50 mg Oral Tablet - take 1 tablet by ORAL route every 8 hours as needed; 30 tablet. - Medication Reconciliation Form, Thank You Letter, Antibiotic Education, Prescription Opioid Use form. - Follow up: Ezekiel Martinez; When: 2 - 3 days; Reason: Recheck today's complaints, Continuance of care, Re-evaluation by your physician. Follow up: Nigel Munoz; When: 2 - 3 days; Reason: Recheck today's complaints, Re-evaluation by your physician. - Problem is new. - Symptoms have improved. Signatures: Dispatcher [employer] EDMS Dyllan Jonas MD MD cha Smirch, Shelby, RN RN Mariza Little RN RN jl7 Corrections: (The following items were deleted from the chart) 11:09 11:07 Home Meds: None; [facility] 11:09 11:07 PMHx: None; [facility] 13:27 12:53 08/02/2018 12:53 Discharged to Home. Impression: Low back pain; Sciatica. jl7 Condition is Stable. Discharge Instructions: Back Pain, Adult, Chronic Back Pain, Musculoskeletal Pain, Back Injury Prevention, Xdzd-ku-Vaye, Back Pain, Adult, Humi-yb-Vhgg, Back Exercises, Vsdt-is-Jcxv. Prescriptions for Ibuprofen 600 mg Oral Tablet - take 1 tablet by ORAL route every 6 hours As needed take with food; 30 tablet, Skelaxin 800 mg Oral Tablet - take 1 tablet by ORAL route every 6 hours As needed; 40 tablet, Tylenol-Codeine #3 300-30 mg Oral Tablet - take 2 tablet by ORAL route every 6 hours As needed; 30 tablet, Medrol (Derrek) 4 mg Oral Tablets, Dose Pack - take 1 tablet by ORAL route as directed - follow package instructions; 1 packet. and Forms are Medication Reconciliation Form, Thank You Letter, Antibiotic Education, Prescription Opioid Use. Follow up: Ezekiel Martinez; When: 2 - 3 days; Reason: Recheck today's complaints, Continuance of care, Re-evaluation by your physician. Follow up: Nigel Munoz; When: 2 - 3 days; Reason: Recheck today's complaints, Re-evaluation by your physician. Problem is new. Symptoms have improved. radha
[2018-08-02 13:04] LABS: Hematocrit 40.2 % (39.6-49.0); MPV 8.9 fL (7.6-11.3); RBC Red Blood Cell Count 4.62 M/uL (4.33-5.43)
[2018-08-02 13:17] LABS: Potassium 3.9 mmol/L (3.5-5.1)
[2018-08-02 13:34] VITALS: TEMP 98.9; O2SAT 97
[2018-08-02 13:35] VITALS: BP 118/81
== END 2018-08-02 13:27 | disposition home or self-care (01) ==
LOC: ER 10:51
DX: M54.30 Sciatica, unspecified side (principal); I10 Essential (primary) hypertension; F17.210 Nicotine dependence, cigarettes, uncomplicated
CPT/HCPCS: 36415; 72131; 80048; 85027; 96374; 96375; 99284; J2405

== ENCOUNTER 2019-01-19 10:46 | Emergency (ER) | payer BC ==
--- OUTSIDE RECORDS SUMMARY | 2019-01-19 10:50 | XMS REPORT ---
:1985 [facility] Address [address] [place] [address] Dr. Boogie [address] [place] [id number] Care Team Providers Name Role Phone Unavailable Unavailable Unavailable Problems This patient has no known problems. Allergies, Adverse Reactions, Alerts This patient has no known allergies or adverse reactions. Medications This patient has no known medications.
--- NOTE | 2019-01-19 12:03 | EDPHYS ---
Physician Documentation [facility] Name: Raman Aragon Age: 33 yrs Sex: Male : 1985 Arrival Date: 01/19/2019 Time: 10:50 Bed 16 Private MD: Na Gilbert H ED Physician Holland Mcgregor HPI: 01/19 11:49 This 33 yrs old Male presents to ER via Ambulatory with complaints of Back pm1 Pain. 11:49 The patient presents with pain that is chronic, with no known mechanism of injury. The pm1 symptoms are located in the low back. Onset: The symptoms/episode began/occurred Since August of this year. The pain radiates to the right leg and left leg. Associated signs and symptoms: Pertinent negatives: abdominal pain, chest pain, constipation, dysuria, fever, incontinence, nausea, numbness, tingling, vomiting. The problem was sustained from unknown cause. Modifying factors: The patient symptoms are alleviated by specific position. Severity of symptoms: in the emergency department the symptoms are actually worse. The patient has experienced similar episodes in the past, chronically. The patient has not recently seen a physician. Patient rides a motorcycle daily. Historical: - Allergies: 11:20 No Known Allergies; rb1 - Home Meds: 11:20 Xanax Oral [Active]; Tramadol Oral [Active]; rb1 - PMHx: 11:20 Hypertension; rb1 - PSHx: 11:20 Cholecystectomy; I \T\ D; rb1 - Immunization history:: Adult Immunizations up to date. - Social history:: Smoking status: Patient uses tobacco products, smokes one pack cigarettes per day. - Ebola Screening: : Patient negative for fever greater than or equal to 101.5 degrees Fahrenheit, and additional compatible Ebola Virus Disease symptoms. ROS: 11:49 Constitutional: Negative for fever, chills, and weight loss, Eyes: Negative for injury, pm1 pain, redness, and discharge, ENT: Negative for injury, pain, and discharge, Neck: Negative for injury, pain, and swelling, Cardiovascular: Negative for chest pain, palpitations, and edema, Respiratory: Negative for shortness of breath, cough, wheezing, and pleuritic chest pain, Abdomen/GI: Negative for abdominal pain, nausea, vomiting, diarrhea, and constipation. 11:49 : Negative for injury, bleeding, discharge, and swelling, MS/Extremity: Negative for injury and deformity, Skin: Negative for injury, rash, and discoloration, Neuro: Negative for headache, weakness, numbness, tingling, and seizure. 11:49 Back: Positive for of the low back area, pain. Exam: 11:49 Constitutional: This is a well developed, well nourished patient who is awake, alert, pm1 and in no acute distress. Head/Face: Normocephalic, atraumatic. Neck: Trachea midline, no thyromegaly or masses palpated, and no cervical lymphadenopathy. Supple, full range of motion without nuchal rigidity, or vertebral point tenderness. No Meningismus. Chest/axilla: Normal chest wall appearance and motion. Nontender with no deformity. No lesions are appreciated. Cardiovascular: Regular rate and rhythm with a normal S1 and S2. No gallops, murmurs, or rubs. Normal PMI, no JVD. No pulse deficits. Respiratory: Lungs have equal breath sounds bilaterally, clear to auscultation and percussion. No rales, rhonchi or wheezes noted. No increased work of breathing, no retractions or nasal flaring. Abdomen/GI: Soft, non-tender, with normal bowel sounds. No distension or tympany. No guarding or rebound. No evidence of tenderness throughout. 11:49 Skin: Warm, dry with normal turgor. Normal color with no rashes, no lesions, and no evidence of cellulitis. MS/ Extremity: Pulses equal, no cyanosis. Neurovascular intact. Full, normal range of motion. 11:49 Back: pain, of the low back area, normal spinal alignment noted, muscle spasm, is appreciated in the low back area. 11:49 Neuro: Orientation: is normal, Motor: is normal, moves all fours, Patient with bilateral dorsiflexion and plantar flexion 5/5 strength, Sensation: is normal, no obvious gross deficits. Vital Signs: 11:20 BP 148 / 95; Pulse 97; Resp 17; Temp 98.3(O); Pulse Ox 95% on R/A; Weight 99.79 kg (R); rb1 Height 5 ft. 10 in. (177.80 cm) (R); Pain 10/10; 12:15 BP 147 / 91; Pulse 90; Resp 16; Temp 98.2(O); Pulse Ox 97% on R/A; Pain 10/10; rb1 11:20 Body Mass Index 31.57 (99.79 kg, 177.80 cm) rb1 MDM: 11:31 Patient medically screened. pm1 11:47 Data reviewed: vital signs. Data interpreted: Pulse oximetry: on room air is 95 %. pm1 Interpretation: normal. 11:48 Counseling: I had a detailed discussion with the patient and/or guardian regarding: the pm1 historical points, exam findings, and any diagnostic results supporting the discharge/admit diagnosis. Administered Medications: 12:02 CANCELLED (Patient Refused): morphine 4 mg IM once pm1 12:10 Drug: Decadron 10 mg {Note: pt. insisted that both shots go in the same arm..} Route: rb1 IM; Site: right deltoid; 12:25 Follow up: Response: No adverse reaction; Pain is decreased rb1 12:10 Drug: Zofran 4 mg Route: PO; rb1 12:25 Follow up: Response: No adverse reaction; Pain is decreased rb1 12:10 Drug: Flexeril 10 mg Route: PO; rb1 12:25 Follow up: Response: No adverse reaction rb1 12:10 Drug: fentaNYL (PF) 25 mcg Route: IM; Site: right deltoid; rb1 12:25 Follow up: Response: No adverse reaction; Pain is decreased rb1 Disposition: 13:21 Co-signature as Attending Physician, Holland Mcgregor MD I agree with the assessment and kdr plan of care. Disposition: 01/19/19 12:03 Discharged to Home. Impression: Low back pain, Other chronic pain. - Condition is Stable. - Discharge Instructions: Back Pain, Adult, Chronic Back Pain, Sciatica. - Prescriptions for Tylenol- Codeine #3 300-30 mg Oral Tablet - take 2 tablets by ORAL route every 6 hours As needed; 20 tablet. Medrol (Derrek) 4 mg Oral Tablets, Dose Pack - take 1 tablet by ORAL route as directed - follow package instructions; 1 packet. - Medication Reconciliation Form, Thank You Letter, Antibiotic Education, Prescription Opioid Use form. - Follow up: Emergency Department; When: As needed; Reason: Worsening of condition. Follow up: Private Physician; When: 2 - 3 days; Reason: Recheck today's complaints, Continuance of care, Re-evaluation by your physician. - Problem is new. - Symptoms have improved. Signatures: Holland Mcgregor MD MD kdr Shannon Tillman RN RN rb1 Eddi Almazan NP LOAN PROCESSOR pm1 Corrections: (The following items were deleted from the chart) 12:02 11:49 morphine 4 mg IM once ordered. pm1 pm1 12:32 12:03 01/19/2019 12:03 Discharged to Home. Impression: Low back pain; Other chronic rb1 pain. Condition is Stable. Forms are Medication Reconciliation Form, Thank You Letter, Antibiotic Education, Prescription Opioid Use. Follow up: Emergency Department; When: As needed; Reason: Worsening of condition. Follow up: Private Physician; When: 2 - 3 days; Reason: Recheck today's complaints, Continuance of care, Re-evaluation by your physician. Problem is new. Symptoms have improved. pm1
--- NOTE | 2019-01-19 12:03 | ER ---
Nurse's Notes [facility] Name: Raman Aragon Age: 33 yrs Sex: Male : 1985 Arrival Date: 01/19/2019 Time: 10:50 Bed 16 Private MD: Na Gilbert H Diagnosis: Low back pain;Other chronic pain Presentation: 01/19 11:20 Presenting complaint: Patient states: Woke up with back pain from his shoulders down to rb1 his legs. Pain 05/11. Transition of care: patient was not received from another setting of care. Onset of symptoms was January 19, 2019. Risk Assessment: Do you want to hurt yourself or someone else? Patient reports no desire to harm self or others. Initial Sepsis Screen: Does the patient meet any 2 criteria? No. Patient's initial sepsis screen is negative. Does the patient have a suspected source of infection? No. Patient's initial sepsis screen is negative. Care prior to arrival: None. 11:20 Method Of Arrival: Ambulatory rb1 11:20 Acuity: JOSÉ MANUEL 3 rb1 Triage Assessment: 11:20 General: Appears uncomfortable, Behavior is calm, cooperative, Denies fever, feeling rb1 ill. General: Denies Injury today. Pain: Complains of pain in back Pain radiates to bilateral legs Pain currently is 10 out of 10 on a pain scale. Aggravated by increased activity, repositioning. Neuro: Level of Consciousness is awake, alert, obeys commands, Oriented to person, place, time, situation. Cardiovascular: Capillary refill < 3 seconds is brisk in bilateral fingers. Respiratory: Airway is patent Respiratory effort is even, unlabored, Respiratory pattern is regular, symmetrical. GI: No signs and/or symptoms were reported involving the gastrointestinal system. : No signs and/or symptoms were reported regarding the genitourinary system. Derm: Skin is pink, warm \T\ dry. Musculoskeletal: Range of motion: intact in all extremities. Historical: - Allergies: 11:20 No Known Allergies; rb1 - Home Meds: 11:20 Xanax Oral [Active]; Tramadol Oral [Active]; rb1 - PMHx: 11:20 Hypertension; rb1 - PSHx: 11:20 Cholecystectomy; I \T\ D; rb1 - Immunization history:: Adult Immunizations up to date. - Social history:: Smoking status: Patient uses tobacco products, smokes one pack cigarettes per day. - Ebola Screening: : Patient negative for fever greater than or equal to 101.5 degrees Fahrenheit, and additional compatible Ebola Virus Disease symptoms. Screenin:20 Abuse screen: Denies threats or abuse. Nutritional screening: No deficits noted. rb1 Tuberculosis screening: No symptoms or risk factors identified. Fall Risk None identified. Assessment: 11:20 General: See triage assessment. rb1 12:15 Reassessment: Patient and/or family updated on plan of care and expected duration. Pain rb1 level reassessed. Patient is alert, oriented x 3, equal unlabored respirations, skin warm/dry/pink. Pt. is uncomfortable. Pain 10/10. Pt. standing at the bedside. Family is present. Vital Signs: 11:20 BP 148 / 95; Pulse 97; Resp 17; Temp 98.3(O); Pulse Ox 95% on R/A; Weight 99.79 kg (R); rb1 Height 5 ft. 10 in. (177.80 cm) (R); Pain 10/10; 12:15 BP 147 / 91; Pulse 90; Resp 16; Temp 98.2(O); Pulse Ox 97% on R/A; Pain 10/10; rb1 11:20 Body Mass Index 31.57 (99.79 kg, 177.80 cm) rb1 ED Course: 10:50 Patient arrived in ED. as 10:50 Na Gilbert DO is Private Physician. as 11:18 Shannon Tillman, ELIA is Primary Nurse. rb1 11:20 Eddi Almazan NP is PHCP. pm1 11:20 Holland Mcgregor MD is Attending Physician. pm1 11:20 Patient has correct armband on for positive identification. Bed in low position. Call rb1 light in reach. Side rails up X 1. Pulse ox on. NIBP on. 11:20 Arm band placed on right wrist. rb1 11:27 Triage completed. rb1 12:32 No provider procedures requiring assistance completed. Patient did not have IV access rb1 during this emergency room visit. Administered Medications: 12:02 CANCELLED (Patient Refused): morphine 4 mg IM once pm1 12:10 Drug: Decadron 10 mg {Note: pt. insisted that both shots go in the same arm..} Route: rb1 IM; Site: right deltoid; 12:25 Follow up: Response: No adverse reaction; Pain is decreased rb1 12:10 Drug: Zofran 4 mg Route: PO; rb1 12:25 Follow up: Response: No adverse reaction; Pain is decreased rb1 12:10 Drug: Flexeril 10 mg Route: PO; rb1 12:25 Follow up: Response: No adverse reaction rb1 12:10 Drug: fentaNYL (PF) 25 mcg Route: IM; Site: right deltoid; rb1 12:25 Follow up: Response: No adverse reaction; Pain is decreased rb1 Outcome: 12:03 Discharge ordered by MD. pm1 12:32 Discharged to home ambulatory. rb1 12:32 Condition: stable 12:32 Discharge instructions given to patient, Instructed on discharge instructions, follow up and referral plans. medication usage, Demonstrated understanding of instructions, follow-up care, medications, Prescriptions given X 2. 12:32 Patient left the ED. rb1 Signatures: Oksana Sharma Rebecca, RN RN rb1 Eddi Almazan NP AIR CONTROL/[employer]I AIR [employer]ARFARE OFFICER pm1
[2019-01-19] MEDS ORDERED: CYCLOBENZAPRINE 10 MG TAB ONE (12:19)
[2019-01-19] MEDS ORDERED: DEXAMETHASONE 10 MG/ML VIAL ONE (12:19)
[2019-01-19] MEDS ORDERED: FENTANYL CITR 100 MCG/2 ML ONE (12:21)
[2019-01-19] MEDS ORDERED: ONDANSETRON 4 MG (ODT) TAB ONE (12:21)
[2019-01-19 12:42] VITALS: BP 147/91; TEMP 98.2; O2SAT 97
== END 2019-01-19 12:32 | disposition home or self-care (01) ==
LOC: ER 10:46
DX: G89.29 Other chronic pain (principal); I10 Essential (primary) hypertension; F17.210 Nicotine dependence, cigarettes, uncomplicated
CPT/HCPCS: 96372; 99283; J1100; J3010

== ENCOUNTER 2019-02-19 02:36 | Emergency (ER) | payer BC, SELFPAY ==
--- OUTSIDE RECORDS SUMMARY | 2019-02-19 02:39 | XMS REPORT ---
:1985 Author Organization [facility] Address [address] [place] [address] Dr. Boogie [address] [place] [id number] Care Team Providers Name Role Phone Unavailable Unavailable Unavailable Problems This patient has no known problems. Allergies, Adverse Reactions, Alerts This patient has no known allergies or adverse reactions. Medications This patient has no known medications.
[2019-02-19 04:07] LABS: Absolute Lymphocytes (CBC) 2.2 K/uL (0.7-4.9); Basophils % 0.5 % (0-1.3); Eosinophils % 0.7 % (0-4.4); Hematocrit 46.6 % (39.6-49.0); Lymphocytes % 19.7 % (15.3-44.8); MPV 8.1 fL (7.6-11.3); Monocytes % 7.7 % (3.3-12.3); Protime INR 1.04; RBC Red Blood Cell Count 5.31 M/uL (4.33-5.43)
[2019-02-19 04:14] LABS: Barbiturates NEGATIVE (NEGATIVE); Benzodiazepines NEGATIVE (NEGATIVE); Cocaine NEGATIVE (NEGATIVE); METHAMPHETAM NEGATIVE (NEGATIVE); Methadone NEGATIVE (NEGATIVE); Opiates NEGATIVE (NEGATIVE); Phencyclidine NEGATIVE (NEGATIVE); THC Cannibis NEGATIVE (NEGATIVE)
[2019-02-19 04:20] LABS: ALT/SGPT 31 U/L (12-78); AST/SGOT 18 U/L (15-37); Albumin 4.5 g/dL (3.4-5.0); Alkaline Phosphatase 70 U/L (45-117); BUN Blood Urea Nitrogen 13 mg/dL (7-18); Bicarbonate 25 mmol/L (21-32); Bilirubin Direct 0.1 mg/dL (0-0.2); Bilirubin Total 0.7 mg/dL (0.2-1.0); Glucose Level 134 mg/dL (74-106); Potassium 3.7 mmol/L (3.5-5.1); Protein, Total 8.7 g/dL (6.4-8.2); Sodium Level 140 mmol/L (136-145)
[2019-02-19] MEDS ORDERED: NALOXONE 0.4 MG/ML VIAL ONE (04:26)
[2019-02-19 04:34] LABS: Urine Blood 1+ (NEG); Urine Glucose NEGATIVE (NEG); Urine Protein 1+ (NEG)
[2019-02-19] MEDS ORDERED: DIPHENHYDRAMINE 50 MG/ML VIAL ONE (04:42)
[2019-02-19] MEDS ORDERED: NA CHLORIDE 0.9% 1,000 ML ONE (05:04)
--- NOTE | 2019-02-19 05:44 | EDPHYS ---
Physician Documentation [facility] Name: Raman Aragon Age: 33 yrs Sex: Male : 1985 Arrival Date: 02/19/2019 Time: 02:38 Bed 6 Private MD: ED Physician Denver Alexandra HPI: 02/19 04:48 This 33 yrs old Male presents to ER via Wheelchair with complaints of tw4 Hallucinations- Due to Medication, Altered Mental Status. 04:48 The patient presents with decreased mental status, decreased responsiveness. Onset: The tw4 symptoms/episode began/occurred 2 day(s) ago. Possible causes: drug use, narcotics. Associated signs and symptoms: The patient has no apparent associated signs or symptoms. Current symptoms: In the emergency department the patient's symptoms are unchanged from the initial presentation. Historical: - Allergies: 02:55 No Known Allergies; bb - Home Meds: 02:55 Xanax Oral [Active]; Tramadol Oral [Active]; losartan 50 mg DAILY for High Blood bb Pressure [Active]; - PMHx: 02:55 Hypertension; Anxiety; bb - PSHx: 02:55 tumor removed from neck; dental surgery; bb - Immunization history:: Adult Immunizations up to date. - Social history:: Smoking status: Patient uses tobacco products, smokes one pack cigarettes per day. Patient uses alcohol, occasionally. - Ebola Screening: : No symptoms or risks identified at this time. ROS: 04:48 Constitutional: Negative for fever, chills, and weight loss, Eyes: Negative for injury, tw4 pain, redness, and discharge, Cardiovascular: Negative for chest pain, palpitations, and edema, Respiratory: Negative for shortness of breath, cough, wheezing, and pleuritic chest pain, Abdomen/GI: Negative for abdominal pain, nausea, vomiting, diarrhea, and constipation, Back: Negative for injury and pain, MS/Extremity: Negative for injury and deformity. 04:48 Neuro: Positive for altered mental status, Negative for headache, hearing loss, loss of consciousness, speech changes, syncope. Exam: 04:48 Constitutional: This is a well developed, well nourished patient who is awake, alert, tw4 and in no acute distress. Head/Face: Normocephalic, atraumatic. Chest/axilla: Normal chest wall appearance and motion. Nontender with no deformity. No lesions are appreciated. Cardiovascular: Regular rate and rhythm with a normal S1 and S2. No gallops, murmurs, or rubs. Normal PMI, no JVD. No pulse deficits. Respiratory: Lungs have equal breath sounds bilaterally, clear to auscultation and percussion. No rales, rhonchi or wheezes noted. No increased work of breathing, no retractions or nasal flaring. Abdomen/GI: Soft, non-tender, with normal bowel sounds. No distension or tympany. No guarding or rebound. No evidence of tenderness throughout. Back: No spinal tenderness. No costovertebral tenderness. Full range of motion. MS/ Extremity: Pulses equal, no cyanosis. Neurovascular intact. Full, normal range of motion. 04:48 Neuro: Orientation: unable to test, the patient is clinically intoxicated. Vital Signs: 02:55 BP 172 / 96; Pulse 113; Resp 16 S; Temp 98.5(O); Pulse Ox 98% on R/A; Weight 86.18 kg bb (R); Height 5 ft. 10 in. (177.80 cm) (R); Pain 0/10; 03:46 BP 162 / 102; Pulse 106; Resp 26 S; Pulse Ox 97% on R/A; cc3 04:32 BP 148 / 97; Pulse 113; Resp 22; Pulse Ox 97% ; ea 05:53 BP 134 / 111; Pulse 114; Resp 20; Pulse Ox 95% on R/A; ea 06:32 BP 163 / 105; Pulse 99; Resp 20; Pulse Ox 97% ; ea 02:55 Body Mass Index 27.26 (86.18 kg, 177.80 cm) MDM: 02:42 Patient medically screened. tw4 04:48 Data reviewed: vital signs, nurses notes. Counseling: I had a detailed discussion with tw4 the patient and/or guardian regarding: the historical points, exam findings, and any diagnostic results supporting the discharge/admit diagnosis. 06:31 Differential Diagnosis: CVA, electrolyte abnormality, alcohol intoxication, tw4 hypoglycemia. Data interpreted: Pulse oximetry: Interpretation: normal. Physician consultation: Nirav Thomas MD was contacted at 05:33, regarding admission, patient's condition, and will see patient in inpatient room. Special discussion:. ED course: Considered LP but pt was too agitated. Pt became more awake and alert but still disoriented. Gave pt Geodon 20mg for agitation. 06:54 Refusal of service: The patient/guardian displays adequate decision making capability tw4 and despite a detailed discussion of alternatives, benefits, risks, and consequences refuses: Admission to the hospital for further work-up and treatment, Lumbar Puncture procedure. 02/19 02:57 Order name: UDS 02/19 03:03 Order name: Acetaminophen [facility] 02/19 03:03 Order name: Basic Metabolic Panel; Complete Time: 05:39 tw4 02/19 05:39 Interpretation: Normal except: GLUC 134; GFR 66. tw4 02/19 03:03 Order name: CBC with Diff; Complete Time: 05:38 tw4 02/19 05:39 Interpretation: Normal except: WBC 11.4. tw02/19 03:03 Order name: ETOH Level; Complete Time: 05:39 [facility] 02/19 03:03 Order name: Hepatic Function; Complete Time: 05:40 [facility] 02/19 05:41 Interpretation: TP 8.7; GLOB 4.2. tw4 02/19 03:03 Order name: PT-INR; Complete Time: 05:40 tw4 02/19 03:03 Order name: Ptt, Activated 02/19 03:03 Order name: Salicylate [facility] 02/19 03:03 Order name: CT Head Brain wo Cont tw02/19 03:04 Order name: Acetaminophen Level; Complete Time: 05:38 EDMS 02/19 03:39 Order name: Urine Dipstick--Ancillary (enter results) [facility] 02/19 02:57 Order name: Cath; Complete Time: 03:22 02/19 03:03 Order name: EKG; Complete Time: 03:06 02/19 03:03 Order name: EKG - Nurse/Tech; Complete Time: 03:45 [facility] 02/19 03:03 Order name: IV Saline Lock; Complete Time: 03:45 02/19 03:03 Order name: Labs collected and sent; Complete Time: 04:20 02/19 03:03 Order name: Urine Dipstick-Ancillary (obtain specimen); Complete Time: 03:21 tw4 EC:51 Rate is 107 beats/min. Rhythm is regular. QRS Surveyor is Normal. SC interval is normal. tw4 QRS interval is normal. QT interval is normal. T waves are Normal. No ST changes noted. Clinical impression: Sinus tachycardia. Interpreted by me. Reviewed by me. Administered Medications: 04:14 Drug: NARcan 0.4 mg Route: IVP; Site: right antecubital; ea 05:00 Follow up: Response: No adverse reaction ea 04:29 Drug: Benadryl 12.5 mg Route: IVP; Site: right antecubital; ea 05:00 Follow up: Response: No adverse reaction ea 04:45 Drug: NS 0.9% 1000 ml Route: IV; Rate: 1 bolus; Site: right antecubital; ea 05:55 Follow up: Response: No adverse reaction; IV Status: Completed infusion; IV Intake: ea 1000ml 06:30 Drug: Geodon 20 mg Route: IM; Site: left deltoid; bb Disposition: 02/19/19 06:53 Patient has left against medical advice. Impression: Altered mental status, unspecified. - Patients states they are going to Home. - Condition is Stable. - Discharge Instructions: Confusion, Delirium, Mild Neurocognitive Disorder. Thank You Letter form. Follow up: Private Physician; When: Upon discharge from the Emergency Department; Reason: If symptoms return, Recheck today's complaints, Continuance of care. - Problem is new. - Symptoms are unchanged. Signatures: Dispatcher [employer] EDMissy Zhu RN RN Anushka Concepcion RN RN ea Wadley, Terrence, MD MD tw4 Corrections: (The following items were deleted from the chart) 06:52 05:43 Hospitalization Ordered by Nirav Thomas MD for Inpatient Admission. Preliminary tw4 diagnosis is Altered mental status, unspecified. Bed requested for Telemetry/MedSurg (Inpatient). Status is Inpatient Admission. Condition is Fair. Problem is new. Symptoms are unchanged. UTI on Admission? No. tw4 07:01 06:53 02/19/2019 06:53 Patients has left against medical advice. Impression: Altered ea mental status, unspecified. Patient states they are going to Home. Condition is Stable. Follow up: Private Physician; When: Upon discharge from the Emergency Department; Reason: If symptoms return, Recheck today's complaints, Continuance of care. Problem is new. Symptoms are unchanged. tw4
--- NOTE | 2019-02-19 05:44 | ER ---
Nurse's Notes [facility] Name: Raman Aragon Age: 33 yrs Sex: Male : 1985 Arrival Date: 02/19/2019 Time: 02:38 Bed 6 Private MD: Diagnosis: Altered mental status, unspecified Presentation: 02/19 02:52 Presenting complaint: states: pt had dental surgery in [place] a week ago and is bb having hallucinations, clammy, hot says his vision is slanted. Transition of care: patient was not received from another setting of care. Onset of symptoms was February 12, 2019. Risk Assessment: Do you want to hurt yourself or someone else? Patient reports no desire to harm self or others. Initial Sepsis Screen: Does the patient meet any 2 criteria? No. Patient's initial sepsis screen is negative. Does the patient have a suspected source of infection? No. Patient's initial sepsis screen is negative. Care prior to arrival: None. 02:52 Method Of Arrival: Wheelchair bb 02:52 Acuity: JOSÉ MANUEL 2 bb Triage Assessment: 03:00 General: Appears in no apparent distress. patient not opening his eyes but when asked cc3 if he knows where he's at right now he answered "hospital". Behavior is calm. 03:00 Pain: Denies pain. Neuro: Level of Consciousness is patient answers few questions but cc3 with eyes closed. Pupils are dilated, bilateral eyes are gazing to the left and downwards. Historical: - Allergies: 02:55 No Known Allergies; bb - Home Meds: 02:55 Xanax Oral [Active]; Tramadol Oral [Active]; losartan 50 mg DAILY for High Blood bb Pressure [Active]; - PMHx: 02:55 Hypertension; Anxiety; bb - PSHx: 02:55 tumor removed from neck; dental surgery; bb - Immunization history:: Adult Immunizations up to date. - Social history:: Smoking status: Patient uses tobacco products, smokes one pack cigarettes per day. Patient uses alcohol, occasionally. - Ebola Screening: : No symptoms or risks identified at this time. Screenin:00 Abuse screen: Denies threats or abuse. Denies injuries from another. Nutritional cc3 screening: No deficits noted. Tuberculosis screening: No symptoms or risk factors identified. Fall Risk Ambulatory Aid- None/Bed Rest/Nurse Assist (0 pts). Gait- Normal/Bed Rest/Wheelchair (0 pts) Mental Status- Overestimates/Forgets Limitations (15 pts.). Assessment: 03:30 General: Appears well groomed, Behavior is unresponsive. Pain: Unable to use pain ea scale. FLACC scale score is 3 out of 10. Neuro: Level of Consciousness is unresponsive, Oriented to none. Cardiovascular: Heart tones S1 S2 present Patient's skin is warm and dry. Respiratory: Airway is patent Respiratory effort is even, unlabored, Respiratory pattern is symmetrical, tachypnea Breath sounds are clear bilaterally. Derm: Skin is moist, Skin is pale, Skin temperature is cool. 05:46 Reassessment: instructed pt and spouse on need for lumbar puncture, pt is oriented x 1, bb speech is rambling, incoherant, pt's spouse signed consent. 06:00 Reassessment: Pt refused LP. Rambling, incoherent. remains at bedside. Removing ea clothing items, BP cuff and monitors. 06:31 Reassessment: pt extremely agitated taking off monitor leads states he is leaving, bb speech is rambling and non-sensical, Dr Alexandra notified, new orders received pt medicated see SEP. 06:56 Reassessment: Patient and/or family updated on plan of care and expected duration. Pain ea level reassessed. Pt continues to ramble, pt reports she wants to leave AMA, she verbalized the understanding of adverse effects of leaving AMA. verbalize the understanding. Pt left ambulatory with significant other, pt tolerating well. Vital Signs: 02:55 BP 172 / 96; Pulse 113; Resp 16 S; Temp 98.5(O); Pulse Ox 98% on R/A; Weight 86.18 kg bb (R); Height 5 ft. 10 in. (177.80 cm) (R); Pain 0/10; 03:46 BP 162 / 102; Pulse 106; Resp 26 S; Pulse Ox 97% on R/A; cc3 04:32 BP 148 / 97; Pulse 113; Resp 22; Pulse Ox 97% ; ea 05:53 BP 134 / 111; Pulse 114; Resp 20; Pulse Ox 95% on R/A; ea 06:32 BP 163 / 105; Pulse 99; Resp 20; Pulse Ox 97% ; ea 02:55 Body Mass Index 27.26 (86.18 kg, 177.80 cm) bb ED Course: 02:38 Patient arrived in ED. am2 02:42 Denver Alexandra MD is Attending Physician. tw4 02:54 Triage completed. bb 02:55 Arm band placed on Patient placed in an exam room, on a stretcher, on pulse oximetry. bb Family accompanied patient. 03:00 Patient has correct armband on for positive identification. Placed in gown. Bed in low cc3 position. Call light in reach. Side rails up X2. compliance monitor on. Pulse ox on. NIBP on. 03:05 Straight cath inserted, using sterile technique, 16 Fr. Returned clear yellow urine. bb Patient tolerated well. 03:40 Inserted saline lock: 20 gauge in right antecubital area, using aseptic technique. cc3 Blood collected. inserted by ELIA Reveles. 03:41 CT Head Brain wo Cont In Process Unspecified. EDMS 04:25 Anushka Childers RN is Primary Nurse. ea 05:42 Nirav Thomas MD is Hospitalizing Provider. tw4 05:47 Consent for a lumbar puncture signed by spouse. bb 06:40 No provider procedures requiring assistance completed. Patient admitted, IV remains in ea place. 07:00 IV discontinued, intact, bleeding controlled, No redness/swelling at site. Pressure ea dressing applied. Administered Medications: 04:14 Drug: NARcan 0.4 mg Route: IVP; Site: right antecubital; ea 05:00 Follow up: Response: No adverse reaction ea 04:29 Drug: Benadryl 12.5 mg Route: IVP; Site: right antecubital; ea 05:00 Follow up: Response: No adverse reaction ea 04:45 Drug: NS 0.9% 1000 ml Route: IV; Rate: 1 bolus; Site: right antecubital; ea 05:55 Follow up: Response: No adverse reaction; IV Status: Completed infusion; IV Intake: ea 1000ml 06:30 Drug: Geodon 20 mg Route: IM; Site: left deltoid; bb Intake: 05:55 IV: 1000ml; Total: 1000ml. ea Outcome: 05:43 Decision to Hospitalize by Provider. tw4 06:40 Instructed on the need for admit, Instruction given to patient's ea 07:00 AMA AMA form signed ea 07:01 Patient left the ED. ea Signatures: Dispatcher [employer] Missy Bartholomew RN RN bb Moreno, Amanda am2 Anushka Childers RN RN ea Wadley, Terrence, MD MD tw4 Caroline Hernández cc3
[2019-02-19] MEDS ORDERED: LIDOCAINE 1% MPF 5 ML VIAL ONE (06:06)
[2019-02-19] MEDS ORDERED: ZIPRASIDONE MESYLA 20 MG/VIAL IM ONE (06:40)
[2019-02-19] MEDS ORDERED: WATER FOR INJ,STERILE 10 ML ONE (06:40)
[2019-02-19 07:10] VITALS: TEMP 98.5
[2019-02-19 07:15] VITALS: BP 163/105; O2SAT 97
--- NOTE | 2019-02-19 08:52 | P.CNS ---
Date of Consult: 02/19/19 Reason for Consult: Altered mental status Requesting Physician: Denver Alexandra Chief Complaint: Altered mentation History of Present Illness: Patient is a 33yo who presented to the hospital with altered mental status. Patient was very confused. Patient has been to [place] and apparently had dental work. Patient was given pain medication which they described as extended -release Ultram. I personally have not heard of an extended release form of Ultram. Patient became altered a few days after using the medicine. The significant other states that she took the pill bottle and down did. She is unsure as to how many pills were in the bottle. I requested her an estimation to see how many he had he used and she was unable to provide this to me. There were withholding a lot of information and I am not really sure why. Patient neurologically appears to be intact, but he is not making a lot of sense. He may need inpatient psych. When I told the family this the significant other said that she would just take him home against medical advice. Allergies No Known Allergies Allergy (Verified 05/20/18 22:06) Home Medications: Aspirin [Aspirin EC 81 MG] 81 mg PO DAILY #90 tablet. 05/21/18 - Past Medical/Surgical History Diabetic: No -: Tobacco abuse -: cholecystectomy -: right ear mass removed - Family History Father Medical History: Heart disease - Social History Smoking Status: Current every day smoker Alcohol use: Yes CD- Drugs: No Caffeine use: No Review of Systems 10-point ROS is otherwise unremarkable Physical Examination Temp Pulse Resp BP Pulse Ox 98.5 F 99 H 20 163/105 H 02/19/19 02:55 02/19/19 06:32 02/19/19 06:32 02/19/19 06:32 General: Alert, In no apparent distress, Oriented x2 HEENT: Atraumatic, PERRLA, Mucous membr. moist/pink, EOMI, Sclerae nonicteric Neck: Supple, 2+ carotid pulse no bruit, No LAD, Without JVD or thyroid abnormality Respiratory: Clear to auscultation bilaterally, Normal air movement Cardiovascular: Regular rate/rhythm, Normal S1 S2 Gastrointestinal: Normal bowel sounds, Soft and benign, Non-distended, No tenderness Musculoskeletal: No clubbing, No swelling, No tenderness Integumentary: No rashes Neurological: Normal gait, Normal speech, Normal strength at 5/5 x4 extr, Normal tone, Sensation intact, Cranial nerves 3-12 intact, Normal reflexes 2+, Abnormal affect Lymphatics: No axilla or inguinal lymphadenopathy Other Physical/Emotional Findings: Patient is not really making any sense when he elaborates on information. He appears to be paranoid. He also may have a break with reality as he is telling me he is from a different time line. Laboratory Data (last 24 hrs) 02/19/19 03:40: PT 12.2, INR 1.04, APTT 33.5 02/19/19 03:40: WBC 11.4 H, Hgb 15.7, Hct 46.6, Plt Count 295 02/19/19 03:40: Sodium 140, Potassium 3.7, BUN 13, Creatinine 1.26, Glucose 134 H, Total Bilirubin 0.7, AST 18, ALT 31, Alkaline Phosphatase 70 - Problems (1) Psychosis Status: Acute (2) Substance abuse Status: Acute Conclusions/ Impression: Plan: 1. IV hydration 2. Toxicology screen 3. Try to get more information from the family 4. Patient may need transfer 2 psychiatry as medically he is stable Critical Care: No Time Spent Managing Pts care (In Minutes): 45 Home Medications: Aspirin [Aspirin EC 81 MG] 81 mg PO DAILY #90 tablet. 05/21/18 Patient Discharge Instructions: Patient left against medical advice Followup: Na Gilbert DO, DO [Primary Care Provider] - Prvt As Needed
--- NOTE | 2019-02-19 09:11 | EKG ---
Test Date: 2019-02-19 Test Time: 03:37:36 Hyster Driver: ABDIFATAH MEASUREMENT RESULTS: Intervals: Rate: 107 VT: 118 QRSD: 90 QT: 318 QTc: 424 [place]: P: 46 VT: 118 QRS: 66 T: 28 INTERPRETIVE STATEMENTS: Sinus tachycardia Possible Left atrial enlargement Borderline ECG Compared to ECG 05/20/2018 22:30:43 Sinus rhythm no longer present T-wave abnormality no longer present Possible ischemia no longer present Electronically Signed On 02-19-19 09:10:32 CDT by Bebo Jane
--- NOTE | 2019-02-20 11:06 | RAD REPORT ---
EXAM DESCRIPTION: CT Head Without Intravenous Contrast CLINICAL HISTORY: The patient is 33 years old and is Male; CONFUSED TECHNIQUE: Axial computed tomography images of the head/brain without intravenous contrast. Sagitt al and coronal reformatted images were created and reviewed. This CT exam was performed using one o r more of the following dose reduction techniques: automated exposure control, adjustment of the mA and/or kV according to patient size, and/or use of iterative reconstruction technique. COMPARISON: No relevant prior studies available. FINDINGS: BRAIN: Unremarkable. The tyler-white matter differentiation is preserved . No hemorrhag e. No significant white matter disease. No edema. No extra-axial fluid collections. VENTRICLES: Unremarkable. No ventriculomegaly. BONES/JOINTS: No acute fracture. SOFT TISSUES: Unremarkable. SINUSES: Unremarkable as visualized. No acute sinusitis. MASTOID AIR CELLS: Unremarkable as visualized. No mastoid effusion. IMPRESSION: No acute intracranial findings. Electronically signed by: Mirian Rivas MD 02/19/2019 3:52 AM CDT Due to temporary technical issues with the PACS/Fluency reporting system, reports are being signed by the in house radiologist as a courtesy to ensure prompt reporting. The interpreting radiologist is f ully responsible for the content of the report.
== END 2019-02-19 07:01 | disposition left against medical advice (07) ==
LOC: ER 02:36
DX: R41.82 Altered mental status, unspecified (principal); I10 Essential (primary) hypertension; F41.9 Anxiety disorder, unspecified; Z79.82 Long term (current) use of aspirin; F17.210 Nicotine dependence, cigarettes, uncomplicated; Z53.29 Procedure and treatment not carried out because of patient's decision for other reasons
CPT/HCPCS: 36415; 51702; 70450; 80048; 80076; 80307; 80320; 80329; 81003; 85025; 85610; 85730; 93005; 96361; 96372; 96374; 96375; 99291; 99292; J2310; J3486; J7030

== ENCOUNTER 2019-02-20 04:28 | Inpatient (IN) | payer SELFPAY ==
--- OUTSIDE RECORDS SUMMARY | 2019-02-20 04:30 | XMS REPORT ---
:1985 Author Organization [facility] Address [address] [place] [address] Dr. Boogie [address] [place] [id number] Care Team Providers Name Role Phone Unavailable Unavailable Unavailable Problems This patient has no known problems. Allergies, Adverse Reactions, Alerts This patient has no known allergies or adverse reactions. Medications This patient has no known medications.
[2019-02-20] MEDS ORDERED: LORAZEPAM 1 MG TABLET ONE (05:04)
[2019-02-20 05:45] LABS: Barbiturates NEGATIVE (NEGATIVE); Benzodiazepines NEGATIVE (NEGATIVE); Cocaine NEGATIVE (NEGATIVE); METHAMPHETAM NEGATIVE (NEGATIVE); Methadone NEGATIVE (NEGATIVE); Opiates NEGATIVE (NEGATIVE); Phencyclidine NEGATIVE (NEGATIVE); THC Cannibis NEGATIVE (NEGATIVE)
[2019-02-20 06:03] LABS: Absolute Lymphocytes (CBC) 1.3 K/uL (0.7-4.9); Basophils % 0.2 % (0-1.3); Hematocrit 41.8 % (39.6-49.0); Lymphocytes % 7.3 % (15.3-44.8); MPV 8.4 fL (7.6-11.3); RBC Red Blood Cell Count 4.77 M/uL (4.33-5.43)
[2019-02-20 06:07] LABS: Urine Blood 2+ (NEG); Urine Glucose NEGATIVE (NEG); Urine Protein 1+ (NEG); Urine Specific Gravity 1.025 (1.005-1.030); Urine pH 5.5 (5.0-7.0)
[2019-02-20 06:11] LABS: Urine Culture Reflex Order REFLEXED
[2019-02-20 06:12] LABS: Urine Bacteria >50 /HPF (NONE SEEN); Urine RBC <5 /HPF (NONE SEEN)
[2019-02-20 06:13] LABS: Protime INR 1.07
[2019-02-20 06:25] LABS: ALT/SGPT 28 U/L (12-78); AST/SGOT 14 U/L (15-37); Albumin 4.3 g/dL (3.4-5.0); Alkaline Phosphatase 62 U/L (45-117); BUN Blood Urea Nitrogen 12 mg/dL (7-18); Bicarbonate 24 mmol/L (21-32); Bilirubin Direct 0.2 mg/dL (0-0.2); Bilirubin Total 0.8 mg/dL (0.2-1.0); Glucose Level 133 mg/dL (74-106); Magnesium 1.9 mg/dL (1.8-2.4); NT PRO-BNP 22 pg/mL (<125); Potassium 3.4 mmol/L (3.5-5.1); Protein, Total 8.2 g/dL (6.4-8.2); Sodium Level 140 mmol/L (136-145); Troponin (Emerg Dept Use Only) < 0.02 ng/mL (0.0-0.045)
[2019-02-20] MEDS ORDERED: NA CHLORIDE 0.9% 1,000 ML ONE ×2 (07:00→08:05)
--- NOTE | 2019-02-20 08:01 | RAD REPORT ---
EXAM DESCRIPTION: Akbar Single View02/20/2019 5:10 am CLINICAL HISTORY: Chest pain COMPARISON: May 2018 FINDINGS: The lungs appear clear of acute infiltrate. The heart is normal size IMPRESSION: No acute abnormalities displayed
[2019-02-20] MEDS ORDERED: LORazepam 2 MG/ML VIAL ONE ×2 (08:05→13:07)
[2019-02-20] MEDS ORDERED: HALOPERIDOL LACT 5 MG/ML INJ ONE (08:05)
--- NOTE | 2019-02-20 09:18 | RAD REPORT ---
EXAM DESCRIPTION: CT - Stone Protocol - 02/20/2019 8:46 am CLINICAL HISTORY: Abdominal pain. Lower abdominal pain. Urinary frequency COMPARISON: 2014 TECHNIQUE: Computed axial tomography of the abdomen pelvis was obtained without oral or IV contrast. Lack of IV and oral contrast limits evaluation of solid organs, bowel, and vessels. Coronal reformat isaura images were obtained and reviewed. All CT scans are performed using dose optimization technique as appropriate and may include automated exposure control or mA/KV adjustment according to patient size. FINDINGS: Some images are degraded by patient motion artifact A renal calculus is not seen. An ureteral calculus is not noted. A bladder calculus is not present. The liver, spleen, pancreas and adrenals appear grossly normal Cholecystectomy There is no evidence of diverticulitis. The appendix appears normal IMPRESSION: Negative for genitourinary calculus
--- NOTE | 2019-02-20 09:22 | RAD REPORT ---
EXAM DESCRIPTION: CT - Head Brain Wo Cont - 02/20/2019 8:46 am CLINICAL HISTORY: Alteration of awareness/confusion COMPARISON: February 19, 2019 TECHNIQUE: Computed axial tomography of the head was obtained. IV contrast was not requested. All CT scans are performed using dose optimization technique as appropriate and may include automated exposure control or mA/KV adjustment according to patient size. FINDINGS: An intracranial bleed is not seen . The ventricles are normal in caliber. No extra-axial fluid collection is noted. Minimal cerebellar tonsillar ectopia is present. Fluid within the sinuses/ mastoids is not seen. IMPRESSION: No acute intracranial abnormality is seen. If patient's symptoms persist MRI of the bra in would be recommended.
--- NOTE | 2019-02-20 10:15 | EKG ---
Test Date: 2019-02-20 Test Time: 04:54:43 Radio Adjuster: KATHERINE MEASUREMENT RESULTS: Intervals: Rate: 100 ID: [id number] QRSD: 96 QT: 312 QTc: 402 [place]: P: 35 ID: [id number] QRS: 52 T: 24 INTERPRETIVE STATEMENTS: Normal sinus rhythm Possible Left atrial enlargement Borderline ECG Compared to ECG 02/19/2019 03:37:36 Sinus tachycardia no longer present Electronically Signed On 02-20-19 10:15:47 CDT by Malachi Beatty
--- NOTE | 2019-02-20 10:15 | EKG ---
Test Date: 2019-02-20 Test Time: 04:55:21 School Program Director: KATHERINE MEASUREMENT RESULTS: Intervals: Rate: 116 MT: 130 QRSD: 94 QT: 318 QTc: 442 [place]: P: 32 MT: 130 QRS: 56 T: -3 INTERPRETIVE STATEMENTS: Sinus tachycardia Possible Left atrial enlargement Borderline ECG Compared to ECG 02/20/2019 04:54:43 Sinus rhythm no longer present Electronically Signed On 02-20-19 10:15:43 CDT by Malachi Beatty
--- NOTE | 2019-02-20 11:35 | ER ---
Nurse's Notes [facility] Name: Raman Aragon Age: 33 yrs Sex: Male : 1985 Arrival Date: 02/20/2019 Time: 04:34 Bed 8 Private MD: Diagnosis: Altered mental status, unspecified;Delirium due to known physiological condition;Urinary tract infection, site not specified;Hallucinations, unspecified Presentation: 02/20 04:39 Presenting complaint: Significant other states: pt has been having delusions and thinks aa1 he's dying for the past several days and started c/o CP at 0200 this morning. Transition of care: patient was not received from another setting of care. Onset of symptoms was February 20, 2019 at 04:41. Risk Assessment: Do you want to hurt yourself or someone else? Patient reports no desire to harm self or others. Initial Sepsis Screen: Does the patient meet any 2 criteria? RR > 20 per min. HR > 90 bpm. Does the patient have a suspected source of infection? No. Patient's initial sepsis screen is negative. Care prior to arrival: None. 04:39 Method Of Arrival: Ambulatory aa1 04:39 Acuity: JOSÉ MANUEL 3 aa1 Historical: - Allergies: 04:42 No Known Allergies; aa1 - PMHx: 04:42 Anxiety; Hypertension; aa1 - PSHx: 04:42 tumor removed from neck; dental surgery; Cholecystectomy; aa1 - Immunization history:: Flu vaccine is not up to date. - Social history:: Smoking status: Patient uses tobacco products, smokes one pack cigarettes per day. - Ebola Screening: : No symptoms or risks identified at this time. Screenin:25 Abuse screen: Denies threats or abuse. Denies injuries from another. pt stated "someone ak1 has a cable in me and is pulling it". Nutritional screening: No deficits noted. Tuberculosis screening: No symptoms or risk factors identified. Fall Risk None identified. Assessment: 05:23 General: Appears uncomfortable, Behavior is agitated, anxious, restless. Pain: Pain ak1 does not radiate. Pain began 2 hours ago. Neuro: Level of Consciousness is awake, alert, obeys commands, confused, Oriented to person, place, situation, Reiki Practitioner are equal bilaterally Moves all extremities. Gait is steady, Speech rapid but clear. Facial symmetry appears normal, Pupils are dilated. Cardiovascular: Heart tones S1 S2 Rhythm is sinus tachycardia. Respiratory: No deficits noted. GI: No signs and/or symptoms were reported involving the gastrointestinal system. : No signs and/or symptoms were reported regarding the genitourinary system. EENT: No signs and/or symptoms were reported regarding the EENT system. Derm: Skin is intact, Skin is clammy, diaphoretic, Skin is normal, Skin temperature is cool. Musculoskeletal: No signs and/or symptoms reported regarding the musculoskeletal system. 05:38 Reassessment: pt was seen in ER last night for same s/s. pt stated pt had dental ak1 work done in [place] a "few weeks ago" pt has been taking "tramadol from [place]" when asked to see the pills and bottle the stated she threw the pills away. pt stated the pills had no markings, only white round pills in a bottle labeled "tramadol." pt stated pt has been using the pills for 2 to 3 weeks daily. pt stated pt quit his job just prior to being laid off. the stated she and the pt just purchased a house and they have 3 children as well. 06:56 Reassessment: [facility] screener at bedside. ak1 07:04 Reassessment: report given to BECCA and [place] ak1 07:45 Reassessment: Patient appears in no apparent distress at this time. Patient and/or ph family updated on plan of care and expected duration. Pain level reassessed. Pt awake and alert, Dr Vega at bedside to speak w/ pt. 10:04 Reassessment: Patient appears in no apparent distress at this time. pt assisted to iw bathroom, ambulatory, pt still appears confused, cooperative, family remains at bedside. 11:00 Reassessment: Patient appears in no apparent distress at this time. Patient and/or ph family updated on plan of care and expected duration. Pain level reassessed. Dr Vega at bedside preforming LP, pt tolerating well. 12:00 Reassessment: Patient appears in no apparent distress at this time. Patient and/or ph family updated on plan of care and expected duration. Pain level reassessed. Pt resting in bed at this time, continues to speak rapidly with flight of ideas noted, states, " There is a women in the ceiling, she's recording my transformation.". 13:45 Reassessment: Pt agitated, attempting to leave room, RNs and aviation safety technician repeatedly tried ph to redirect pt and have him remain in bed for his safety, pt continues to try to stand and leave room, noted to be unsteady, Dr Vega notified, see MAR for orders. 14:15 Reassessment: Pt remains agitated with rambling and incoherent speech, now lying ph in bed w/ pt in attempt to keep him from standing and ambulating, BP stable at 133/91, HR remains elevated at 133 bpm. 15:31 Reassessment: Patient appears in no apparent distress at this time. Patient and/or ph family updated on plan of care and expected duration. Pain level reassessed. Pt resting quietly. 16:26 Reassessment: pt still very agitated, confused, cannot hold thermometer in mouth, iw grabbing at , not following commands, VSS, Dr. Vega at bedside, states pt stood up and peed on chair and floor. 16:40 Reassessment: administered 5 mg Valium IVP now. iw 16:46 Reassessment: Patient appears in no apparent distress at this time. pt in NAD, iw respirations even and unlabored, pt appears to be sleeping. 16:55 Reassessment: Patient is now resting with eyes closed. Respirations even and unlabored. ss remains at bedside. 19:40 General: Appears in no apparent distress. Behavior is cooperative. Pain: Denies pain. ea Neuro: Level of Consciousness is awake, alert, obeys commands, Oriented to person, place, situation. Respiratory: Airway is patent Respiratory effort is even, unlabored, Respiratory pattern is regular, symmetrical. GI: No signs and/or symptoms were reported involving the gastrointestinal system. Derm: Skin is dry, Skin is normal, Skin temperature is warm. 20:28 Reassessment: Patient and/or family updated on plan of care and expected duration. Pain ea level reassessed. Patient is alert, oriented x 3, equal unlabored respirations, skin warm/dry/pink. Vital Signs: 04:42 BP 177 / 63; Pulse 128; Resp 24; Temp 98.0; Pulse Ox 100% on R/A; Weight 86.18 kg; aa1 Height 5 ft. 10 in. (177.80 cm); Pain 10/10; 05:25 BP 133 / 100; Pulse 120; Resp 24; Pulse Ox 100% on R/A; ak1 05:37 BP 139 / 91; Pulse 128; Resp 26; Pulse Ox 99% on R/A; ak1 06:56 BP 116 / 98; Pulse 113; Resp 24; Pulse Ox 99% on R/A; ak1 08:11 BP 115 / 89; Pulse 114; Resp 20; Pulse Ox 97% on R/A; Pain 0/10; ss 08:22 Temp 98.8(TE); iw 10:07 BP 138 / 85; Pulse 103; Resp 18 S; Temp 98.2(TE); Pulse Ox 98% on R/A; Pain 0/10; iw 11:07 BP 117 / 87; Pulse 107; Resp 22; Pulse Ox 100% on R/A; ph 12:00 BP 126 / 94; Pulse 123; Resp 18; Pulse Ox 98% on R/A; ph 13:55 BP 156 / 95; Pulse 156; ph 14:22 BP 133 / 91; Pulse 133; Resp 20; Pulse Ox 95% on R/A; ph 15:30 BP 141 / 75; Pulse 111; Resp 20; Pulse Ox 97% on R/A; ph 16:25 BP 140 / 74; Pulse 117; Resp 20 S; Temp 98.2(TE); Pulse Ox 100% on R/A; iw 16:46 BP 119 / 71; Pulse 122; Resp 20 S; Pulse Ox 95% on R/A; Pain 0/10; iw 16:58 BP 126 / 75; Pulse 121; Resp 18 S; Pulse Ox 96% on R/A; Pain 0/10; iw 20:28 BP 132 / 89; Pulse 114; Resp 18; Pulse Ox 93% on R/A; ea 04:42 Body Mass Index 27.26 (86.18 kg, 177.80 cm) aa1 Vitals: 16:46 Cardiac Rhythm Assessment Sinus tach. iw ED Course: 04:34 Patient arrived in ED. ag3 04:38 Denver Alexandra MD is Attending Physician. tw4 04:41 Triage completed. aa1 04:42 Arm band placed on right wrist. aa1 05:07 X-ray completed. Portable x-ray completed in exam room. Patient tolerated procedure kw well. 05:09 XRAY Chest (1 view) In Process Unspecified. EDMS 05:20 Annalise Mayo, RN is Primary Nurse. ak1 05:22 Initial lab(s) drawn, by me, sent to lab. Urine collected: clean catch specimen, annalise ak1 colored, EKG done, by ED staff, reviewed by Denver Alexandra MD X-ray(s) taken. Inserted saline lock: 20 gauge in right antecubital area, using aseptic technique. Blood collected. Patient maintains SpO2 saturation greater than 95% on room air. 05:25 Patient has correct armband on for positive identification. Bed in low position. Call ak1 light in reach. Side rails up X2. Adult w/ patient. playground monitor on. Pulse ox on. NIBP on. Door closed. Warm blanket given. 08:12 Attending Physician role handed off by Denver Alexandra MD rn 08:12 Zion Vega MD is Attending Physician. rn 08:49 CT Head Brain wo Cont In Process Unspecified. EDMS 08:49 CT Stone Protocol In Process Unspecified. EDMS 11:15 Assist provider with lumbar puncture: Set up LP tray. Performed by Zion Vega MD CSF ph is clear. Puncture site dressed with band aid, Procedure was successful. Patient tolerated well. 11:34 Dre Groves MD is Hospitalizing Provider. rn 17:15 Melida Warner, RN is Primary Nurse. ph 17:15 Patient admitted, IV remains in place. ph Administered Medications: 05:00 Drug: Ativan 1 mg Route: PO; ea 06:32 Follow up: Response: No adverse reaction ak1 06:57 Drug: NS 0.9% 1000 ml Route: IV; Rate: 1 bolus; Site: right antecubital; ak1 08:30 Follow up: Response: No adverse reaction; IV Status: Completed infusion; IV Intake: ph 1000ml 11:36 Follow up: IV Status: Completed infusion; IV Intake: 2000ml ss 07:57 Drug: NS 0.9% 1000 ml Route: IV; Rate: 1000 ml; Site: right antecubital; ph 10:00 Follow up: Response: No adverse reaction; IV Status: Completed infusion ph 07:58 Drug: Ativan 1 mg Route: IVP; Site: right antecubital; ph 10:55 Follow up: Response: No adverse reaction ph 07:58 Drug: HALdol (as decanoate) 5 mg Route: IM; Site: right deltoid; ph 10:55 Follow up: Response: No adverse reaction ph 10:38 Drug: Ativan 1 mg Route: IVP; Site: right antecubital; ph 10:55 Follow up: Response: No adverse reaction ph 11:36 Not Given (Other Intervention Used): Rocephin - (cefTRIAXone) 1 grams IVPB once over 30 ss mins; (mix in 50 mL NS) 11:36 Drug: Rocephin 1 grams Route: IV; Rate: calculated rate; Site: right antecubital; ss 11:36 Follow up: IV Status: Completed infusion ss 12:57 Drug: Ativan 2 mg Route: IVP; Site: right antecubital; ph 13:15 Follow up: Response: No adverse reaction; No change in condition ph 13:23 Drug: Geodon 10 mg Route: IM; Site: left deltoid; iw 13:55 Follow up: Response: No adverse reaction; No change in condition ph 13:50 Drug: Ketamine 1 mg/kg {Note: [address] Vega.} Route: IVP; Site: right antecubital;ph 14:00 Follow up: Response: No adverse reaction; No change in condition ph 14:00 Drug: Versed 2 mg Route: IVP; Site: right antecubital; ph 14:05 Follow up: Response: No adverse reaction; No change in condition ph 14:10 Drug: Versed 2 mg Route: IVP; Site: right antecubital; ph 14:30 Follow up: Response: No adverse reaction; Patient is sedated ph 16:38 Drug: Valium 5 mg Route: IVP; Site: right antecubital; iw 16:40 Drug: Valium 5 mg Route: IVP; Site: right antecubital; iw 18:09 Follow up: Response: No adverse reaction; Patient is sedated ph Intake: 08:30 IV: 1000ml; Total: 1000ml. ph 11:36 IV: 2000ml; Total: 3000ml. ss Outcome: 11:34 Decision to Hospitalize by Provider. rn 17:15 Admitted to ER Hold. Please see [facility] for further documentation. ph 17:15 Condition: stable 02/21 12:27 Patient left the ED. ss Signatures: Dispatcher [employer] EDMS Autenrieth, Onelia, RN RN aa1 Asya Núñez, RN Zion Bustamante MD MD rn Smirch, Shelby, Crystal Mcclellan RN, Amber, RN RN ak1 Melida Warner, RN RN Anushka Childers RN Denver Springer ea, MD MD tw4 Iris Gerard 3
--- NOTE | 2019-02-20 11:36 | EDPHYS ---
Physician Documentation [facility] Name: Raman Aragon Age: 33 yrs Sex: Male : 1985 Arrival Date: 02/20/2019 Time: 04:34 Bed 8 Private MD: ED Physician Zion Vega HPI: 02/20 05:35 This 33 yrs old Male presents to ER via Ambulatory with complaints of Chest tw4 Pain. 05:35 The patient or guardian reports chest pain that is located primarily in the anterior tw4 chest wall. The pain does not radiate. Associated signs and symptoms: The patient has no apparent associated signs or symptoms. The chest pain is described as dull. Duration: The patient or guardian reports a single episode. Modifying factors: The symptoms are alleviated by nothing. the symptoms are aggravated by nothing. Severity of pain: At its worst the pain was mild in the emergency department the pain is unchanged. The patient has not experienced similar symptoms in the past. 06:28 Pt was seen here last night and displayed bizarre paranoid behavior. Pt returns today tw4 with similar symptoms. Historical: - Allergies: 04:42 No Known Allergies; aa1 - PMHx: 04:42 Anxiety; Hypertension; aa1 - PSHx: 04:42 tumor removed from neck; dental surgery; Cholecystectomy; aa1 - Immunization history:: Flu vaccine is not up to date. - Social history:: Smoking status: Patient uses tobacco products, smokes one pack cigarettes per day. - Ebola Screening: : No symptoms or risks identified at this time. ROS: 05:35 Constitutional: Negative for fever, chills, and weight loss, Eyes: Negative for injury, tw4 pain, redness, and discharge, Respiratory: Negative for shortness of breath, cough, wheezing, and pleuritic chest pain, Abdomen/GI: Negative for abdominal pain, nausea, vomiting, diarrhea, and constipation, Back: Negative for injury and pain, MS/Extremity: Negative for injury and deformity, Skin: Negative for injury, rash, and discoloration. 05:35 Cardiovascular: Positive for chest pain. Exam: 05:35 Constitutional: This is a well developed, well nourished patient who is awake, alert, tw4 and in no acute distress. Head/Face: Normocephalic, atraumatic. Chest/axilla: Normal chest wall appearance and motion. Nontender with no deformity. No lesions are appreciated. Cardiovascular: Regular rate and rhythm with a normal S1 and S2. No gallops, murmurs, or rubs. Normal PMI, no JVD. No pulse deficits. Respiratory: Lungs have equal breath sounds bilaterally, clear to auscultation and percussion. No rales, rhonchi or wheezes noted. No increased work of breathing, no retractions or nasal flaring. Abdomen/GI: Soft, non-tender, with normal bowel sounds. No distension or tympany. No guarding or rebound. No evidence of tenderness throughout. Back: No spinal tenderness. No costovertebral tenderness. Full range of motion. MS/ Extremity: Pulses equal, no cyanosis. Neurovascular intact. Full, normal range of motion. 05:35 Neuro: Orientation: Not oriented to place, time, situation, Mentation: confused. 05:35 Psych: Behavior/mood is delirious, Affect is animated, Not oriented to place, time, Patient has no thoughts/intents to harm self or others. Vital Signs: 04:42 BP 177 / 63; Pulse 128; Resp 24; Temp 98.0; Pulse Ox 100% on R/A; Weight 86.18 kg; aa1 Height 5 ft. 10 in. (177.80 cm); Pain 10/10; 05:25 BP 133 / 100; Pulse 120; Resp 24; Pulse Ox 100% on R/A; ak1 05:37 BP 139 / 91; Pulse 128; Resp 26; Pulse Ox 99% on R/A; ak1 06:56 BP 116 / 98; Pulse 113; Resp 24; Pulse Ox 99% on R/A; ak1 08:11 BP 115 / 89; Pulse 114; Resp 20; Pulse Ox 97% on R/A; Pain 0/10; ss 08:22 Temp 98.8(TE); iw 10:07 BP 138 / 85; Pulse 103; Resp 18 S; Temp 98.2(TE); Pulse Ox 98% on R/A; Pain 0/10; iw 11:07 BP 117 / 87; Pulse 107; Resp 22; Pulse Ox 100% on R/A; ph 12:00 BP 126 / 94; Pulse 123; Resp 18; Pulse Ox 98% on R/A; ph 13:55 BP 156 / 95; Pulse 156; ph 14:22 BP 133 / 91; Pulse 133; Resp 20; Pulse Ox 95% on R/A; ph 15:30 BP 141 / 75; Pulse 111; Resp 20; Pulse Ox 97% on R/A; ph 16:25 BP 140 / 74; Pulse 117; Resp 20 S; Temp 98.2(TE); Pulse Ox 100% on R/A; iw 16:46 BP 119 / 71; Pulse 122; Resp 20 S; Pulse Ox 95% on R/A; Pain 0/10; iw 16:58 BP 126 / 75; Pulse 121; Resp 18 S; Pulse Ox 96% on R/A; Pain 0/10; iw 20:28 BP 132 / 89; Pulse 114; Resp 18; Pulse Ox 93% on R/A; ea 04:42 Body Mass Index 27.26 (86.18 kg, 177.80 cm) aa1 Procedures: 11:07 Lumbar Puncture: Patient placed in left lateral decubitus position. Prepped with rn Betadine. Draped using sterile technique. Collected 8 ml's of clear fluid. Sample sent to lab. Puncture site dressed with band aid, Patient tolerated well. MDM: 04:38 Patient medically screened. tw4 08:53 ED course: states went to [place] to get dental work done a few weeks ago, came rn back fine, was taking xanax and tramadol, a few times a day for the tramadol, but family not sure is really tramadol. Denies fever or pain. No vomiting/diarrhea/rash. . 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 signed. . 11:31 Differential diagnosis: anxiety, acute psychotic break, encephalitis, meningitis, drug rn withdrawal, drug ingestion. Data reviewed: vital signs, nurses notes, lab test result(s), radiologic studies, CT scan, and as a result, I will admit patient. Counseling: I had a detailed discussion with the patient and/or guardian regarding: the historical points, exam findings, and any diagnostic results supporting the discharge/admit diagnosis, lab results, radiology results, the need for further work-up and treatment in the hospital. Response to treatment: the patient's symptoms have mildly improved after treatment, and as a result, I will admit patient. Admission orders: after a detailed discussion of the patient's condition and case, the admit orders are written by me. ED course: Unclear etiology, elevated WBC and UTI, LP performed, rocephin given, will admit to Dr. Groves for possible delirium. Likely medication withdrawal or effect as well complicating picture. No previous hx of psychiatric problems, so before commiting, will admit to rule out medical cause of delirium.. 12:42 ED course: Pt becoming more and more agitated, still seems to be hallucinating, stormed rn out of ER to smoke, will medicate with more ativan. . 02/20 04:39 Order name: Basic Metabolic Panel; Complete Time: 06:29 02/20 04:39 Order name: CBC with Diff; Complete Time: 06:29 02/20 04:39 Order name: LFT's; Complete Time: 06:29 tw02/20 04:39 Order name: Magnesium; Complete Time: 06:29 02/20 04:39 Order name: NT PRO-BNP; Complete Time: 06:29 02/20 04:39 Order name: PT-INR; Complete Time: 06:29 tw02/20 04:39 Order name: Troponin (emerg Dept Use Only); Complete Time: 06:29 02/20 04:39 Order name: UDS; Complete Time: 06:16 tw02/20 05:25 Order name: Urine Microscopic Only; Complete Time: 06:29 ak1 02/20 05:37 Order name: Urine Dipstick--Ancillary (enter results); Complete Time: 06:29 cm6 02/20 06:16 Order name: Urine Culture EDME 02/20 06:28 Order name: Alcohol Level; Complete Time: 09:30 tw4 02/20 11:11 Order name: CSF Bacterial Antigens (tube 1); Complete Time: 12:41 rn 02/20 11:11 Order name: Csf Culture rn 02/20 04:39 Order name: XRAY Chest (1 view); Complete Time: 08:05 tw02/20 08:06 Order name: CT Head Brain wo Cont; Complete Time: 09:30 rn 02/20 08:09 Order name: CT Stone Protocol; Complete Time: 09:30 rn 02/20 11:11 Order name: Fluid Cell Count,Body; Complete Time: 11:53 rn 02/20 11:11 Order name: Spinal Fluid Profile; Complete Time: 12:41 rn 02/20 11:47 Order name: AMMONIA; Complete Time: 12:41 iw 02/20 11:57 Order name: Miscellaneous Micro Reference; Complete Time: 12:41 EDMS 02/21 05:41 Order name: CBC with Automated Diff EDMS 02/21 05:42 Order name: Comprehensive Metabolic Panel EDMS 02/20 04:39 Order name: EKG; Complete Time: 04:42 tw4 02/20 04:39 Order name: Cardiac monitoring; Complete Time: 05:20 tw4 02/20 04:39 Order name: EKG - Nurse/Tech; Complete Time: 05:20 tw4 02/20 04:39 Order name: IV Saline Lock; Complete Time: 05:20 tw4 02/20 04:39 Order name: Labs collected and sent; Complete Time: 05:20 tw4 02/20 04:39 Order name: O2 Per Protocol; Complete Time: 05:20 tw4 02/20 04:39 Order name: O2 Sat Monitoring; Complete Time: 05:21 tw4 02/20 07:42 Order name: EKG Electrocardiogram EDMS 02/20 08:26 Order name: Labs - recollect needed; Complete Time: 09:06 bd 02/20 08:30 Order name: Diet Regular; Complete Time: 08:30 bd 02/20 11:11 Order name: LP Consents; Complete Time: 11:16 rn 02/20 11:11 Order name: LP Setup; Complete Time: 11:16 rn Administered Medications: 05:00 Drug: Ativan 1 mg Route: PO; ea 06:32 Follow up: Response: No adverse reaction ak1 06:57 Drug: NS 0.9% 1000 ml Route: IV; Rate: 1 bolus; Site: right antecubital; ak1 08:30 Follow up: Response: No adverse reaction; IV Status: Completed infusion; IV Intake: ph 1000ml 11:36 Follow up: IV Status: Completed infusion; IV Intake: 2000ml ss 07:57 Drug: NS 0.9% 1000 ml Route: IV; Rate: 1000 ml; Site: right antecubital; ph 10:00 Follow up: Response: No adverse reaction; IV Status: Completed infusion ph 07:58 Drug: Ativan 1 mg Route: IVP; Site: right antecubital; ph 10:55 Follow up: Response: No adverse reaction ph 07:58 Drug: HALdol (as decanoate) 5 mg Route: IM; Site: right deltoid; ph 10:55 Follow up: Response: No adverse reaction ph 10:38 Drug: Ativan 1 mg Route: IVP; Site: right antecubital; ph 10:55 Follow up: Response: No adverse reaction ph 11:36 Not Given (Other Intervention Used): Rocephin - (cefTRIAXone) 1 grams IVPB once over 30 ss mins; (mix in 50 mL NS) 11:36 Drug: Rocephin 1 grams Route: IV; Rate: calculated rate; Site: right antecubital; ss 11:36 Follow up: IV Status: Completed infusion ss 12:57 Drug: Ativan 2 mg Route: IVP; Site: right antecubital; ph 13:15 Follow up: Response: No adverse reaction; No change in condition ph 13:23 Drug: Geodon 10 mg Route: IM; Site: left deltoid; iw 13:55 Follow up: Response: No adverse reaction; No change in condition ph 13:50 Drug: Ketamine 1 mg/kg {Note: [address] Vega.} Route: IVP; Site: right antecubital;ph 14:00 Follow up: Response: No adverse reaction; No change in condition ph 14:00 Drug: Versed 2 mg Route: IVP; Site: right antecubital; ph 14:05 Follow up: Response: No adverse reaction; No change in condition ph 14:10 Drug: Versed 2 mg Route: IVP; Site: right antecubital; ph 14:30 Follow up: Response: No adverse reaction; Patient is sedated ph 16:38 Drug: Valium 5 mg Route: IVP; Site: right antecubital; iw 16:40 Drug: Valium 5 mg Route: IVP; Site: right antecubital; iw 18:09 Follow up: Response: No adverse reaction; Patient is sedated ph Disposition: 02/20/19 11:34 Hospitalization ordered by Dre Groves for Inpatient Admission. Preliminary diagnosis are Altered mental status, unspecified, Delirium due to known physiological condition, Urinary tract infection, site not specified, Hallucinations, unspecified. - Bed requested for Telemetry/MedSurg (Inpatient). - Status is Inpatient Admission. ss - Condition is Fair. - Problem is new. - Symptoms have improved. UTI on Admission? Yes Signatures: Dispatcher [employer] EDMS Yasmeen Gao Diana, RN RN Onelia Li RN RN aa1 sAya Núñez RN RN Zion Vega MD MD rn Smirch, Shelby, RN RN Whitney Mayo RN RN ak1 Melida Warner RN ELIA Anushka Childers RN Denver Springer ea, MD MD tw4 Corrections: (The following items were deleted from the chart) 17:11 11:34 Hospitalization Ordered by Dre Groves MD for Inpatient Admission. Preliminary diagnosis is Altered mental status, unspecified; Delirium due to known physiological condition; Urinary tract infection, site not specified; Hallucinations, unspecified. Bed requested for Telemetry/MedSurg (Inpatient). Status is Inpatient Admission. Condition is Fair. Problem is new. Symptoms have improved. UTI on Admission? Yes. rn 02/21 11:43 02/20 17:11 02/20/2019 11:34 Hospitalization Ordered by Dre Groves MD for Inpatient dw Admission. Preliminary diagnosis is Altered mental status, unspecified; Delirium due to known physiological condition; Urinary tract infection, site not specified; Hallucinations, unspecified. Bed requested for [facility] ER HOLD. Status is Inpatient Admission. Condition is Fair. Problem is new. Symptoms have improved. UTI on Admission? Yes. iw 02/21 12:27 11:43 02/20/2019 11:34 Hospitalization Ordered by Dre Groves MD for Inpatient ss Admission. Preliminary diagnosis is Altered mental status, unspecified; Delirium due to known physiological condition; Urinary tract infection, site not specified; Hallucinations, unspecified. Bed requested for Telemetry/MedSurg (Inpatient). Status is Inpatient Admission. Condition is Fair. Problem is new. Symptoms have improved. UTI on Admission? Yes. dw
[2019-02-20] MEDS ORDERED: CEFTRIAXONE/SWI 1gm 1 GM/10 ML SYR ONE (11:39)
[2019-02-20 11:43] LABS: Appearance CLEAR (CLEAR); Body Fluid Source CSF; Body Fluid WBC 1 /mm^3; Color of fluid Colorless (COLORLESS)
[2019-02-20 11:44] LABS: Body Fluid WBC 1 /mm^3
[2019-02-20 11:57] LABS: CSF Glucose 83 mg/dL (40-70)
[2019-02-20] MEDS ORDERED: WATER FOR INJ,STERILE 10 ML ONE (13:30)
[2019-02-20] MEDS ORDERED: ZIPRASIDONE MESYLA 20 MG/VIAL IM ONE (13:30)
[2019-02-20] MEDS ORDERED: KETAMINE HCL 500 MG/5 ML VIAL ONE (14:06)
[2019-02-20] MEDS ORDERED: MIDAZOLAM HCL 2 MG/2 ML INJ ONE ×2 (14:13→14:22)
[2019-02-20] MEDS ORDERED: DIAZEPAM 10 MG/2 ML INJ SYRINGE ONE (16:48)
--- NOTE | 2019-02-20 17:07 | P.HP ---
Certification for Inpatient Patient admitted to: Inpatient Practitioner: I am a practitioner with admitting privileges, knowledge of patient current condition, hospital course, and medical plan of care. Services: Services provided to patient in accordance with Admission requirements found in Title 42 Section 412.3 of the Code of Federal Regulations Patient History Date of Service: 02/20/19 Reason for admission: AMS, delirium History of Present Illness: Patient is a 33yo who presented to the hospital with altered mental status. He was seen in the emergency room yesterday for similar reasons but left AMA as he was told that he may need a psych eval. Per significant other at bedside, Patient was very confused. Patient has recently been to [place] and apparently had dental work. Patient was given pain medication which they described as extended-release Ultram. Patient became altered a few days after using the medicine. She is unsure as to how many pills were in the bottle. states that patient has a hx of anxiety and HTN. He only takes xanax at home. He does have a hx of drug abuse when he was younger but denies any drug usage recently. He is a current smoker. also states that he has recently lost his job and has been unsuccessful in finding a new job. He is alone at home majority of the day. She also denies any prior episodes like this or any psych history. In the ED, her BP was elevated to 177/63, HR of 128, RR 2, afebrile and 100% on RA. His labs were remarkable for WBC of 18, UA w/ bacteria, UDS was negative. He was given multiple medications to help his anxiety and agitation in the ED including halidol, geodon, ativan. His head CT was negative for anything acute. Abdominal CT was done, which was negative for any acute abnormalities. At the time of my exam, I was unable to do a full neuro exam as patient not really following commands. He was still agitated and conitnued to mumble and seemed to talk to people who were not in the room. He was not making any sense. Allergies No Known Allergies Allergy (Verified 05/20/18 22:06) Home medications list reviewed: Yes Home Medications: Aspirin [Aspirin EC 81 MG] 81 mg PO DAILY #90 tablet. 05/21/18 - Past Medical/Surgical History Diabetic: No -: Tobacco abuse -: HTN -: cholecystectomy -: right ear mass removed - Family History Father -: Heart disease - Social History Smoking Status: Current every day smoker Alcohol use: Yes CD- Drugs: No Caffeine use: No Review of Systems is unable to be obtained Physical Examination - Physical Exam General: Confused, Delirious HEENT: Atraumatic, PERRLA, Mucous membr. moist/pink, EOMI, Sclerae nonicteric Neck: Supple, 2+ carotid pulse no bruit, No LAD, Without JVD or thyroid abnormality Respiratory: Clear to auscultation bilaterally, Normal air movement Gastrointestinal: Normal bowel sounds, No tenderness Musculoskeletal: No tenderness Integumentary: No rashes Neurological: Other (unable to be tested) Other Physical/Emotional Findings: Patient confused and not making sense. Talking to people who are clearly not there. Seems agitated - Studies Laboratory Data (last 24 hrs) 02/20/19 05:50: PT 12.6 H, INR 1.07 02/20/19 05:50: WBC 18.0 H D, Hgb 14.4, Hct 41.8, Plt Count 270 02/20/19 05:50: Sodium 140, Potassium 3.4 L, BUN 12, Creatinine 1.02, Glucose 133 H, Magnesium 1.9, Total Bilirubin 0.8, AST 14 L, ALT 28, Alkaline Phosphatase 62 Microbiology Data (last 24 hrs): 02/20/19 11:00 Cerebral Spinal Fluid Gram Stain - Final 02/20/19 11:00 Cerebral Spinal Fluid Miscellaneous Micro Reference Test - Final 02/20/19 11:00 Cerebral Spinal Fluid CSF Bacterial Antigens (Tube 1) - Final Assessment and Plan - Problems (Diagnosis) (1) Acute delirium Current Visit: Yes Status: Acute (2) Hypertension Onset Date: 05/23/18 Current Visit: No Status: Acute Qualifiers: Hypertension type: essential hypertension Qualified Code(s): I10 - Essential (primary) hypertension (3) Psychosis Current Visit: No Status: Acute (4) Tobacco abuse Onset Date: 05/23/18 Current Visit: No Status: Acute (5) Anxiety Current Visit: Yes Status: Acute - Plan DDx includes drug induced, pscyh disorder vs infectious. Cultures pending. Continue rocephin at this time. He will require 1-on-1 sitter due to his agitation, therefore will need ICU admission. He may require further inpatient psych evaluation once medically stable Plan: Admit to ICU for 1-on-1 sitter, may require inpatient psych eval once medically stable. - Advance Directives Does patient have a Living Will: No Does patient have a Durable POA for Healthcare: No
[2019-02-20 17:52] VITALS: BMI 27.2
[2019-02-20] MEDS: NA CHLORIDE 0.9% 1,000 ML IV SCH (19:00)
[2019-02-20] MEDS: TRAMADOL HCL 50 MG TAB PO PRN (22:06)
[2019-02-21] MEDS: NA CHLORIDE 0.9% 1,000 ML IV SCH ×3 (03:15→23:15)
[2019-02-21 05:39] LABS: Absolute Lymphocytes (CBC) 1.6 K/uL (0.7-4.9); Basophils % 0.2 % (0-1.3); Hematocrit 38.8 % (39.6-49.0); Lymphocytes % 10.4 % (15.3-44.8); MPV 8.4 fL (7.6-11.3)
[2019-02-21 05:42] LABS: ALT/SGPT 28 U/L (12-78); AST/SGOT 19 U/L (15-37); Albumin 3.8 g/dL (3.4-5.0); Alkaline Phosphatase 64 U/L (45-117); BUN Blood Urea Nitrogen 11 mg/dL (7-18); Bicarbonate 28 mmol/L (21-32); Bilirubin Total 0.7 mg/dL (0.2-1.0); Glucose Level 123 mg/dL (74-106); Potassium 3.7 mmol/L (3.5-5.1); Protein, Total 7.7 g/dL (6.4-8.2); Sodium Level 140 mmol/L (136-145)
[2019-02-21] MEDS ORDERED: POTASSIUM CL SA 10 MEQ TAB PO ONE ×3 (07:27→16:00)
[2019-02-21] MEDS: ENOXAPARIN 40 MG/0.4 ML SQ SCH (08:18)
[2019-02-21] MEDS: CEFTRIAXONE/SWI 1gm 1 GM/10 ML SYR IV SCH (08:19)
[2019-02-21] MEDS: TRAMADOL HCL 50 MG TAB PO PRN ×2 (08:19→15:01)
[2019-02-21] MEDS ORDERED: TRAMADOL HCL 50 MG TAB ONE (08:21)
[2019-02-21] MEDS ORDERED: ENOXAPARIN 40 MG/0.4 ML SQ ONE (08:21)
[2019-02-21] MEDS ORDERED: CEFTRIAXONE/SWI 1gm 1 GM/10 ML SYR ONE (08:27)
[2019-02-21] MEDS ORDERED: CEFTRIAXONE 1 GM/NS 50 ML 1 GM/50 ML BAG IV SCH (09:00)
[2019-02-21] MEDS: ACETAMINOPHEN 500 MG TAB PO PRN ×2 (11:17→23:37)
[2019-02-21] MEDS ORDERED: ACETAMINOPHEN 500 MG TAB ONE (11:32)
--- NOTE | 2019-02-21 16:40 | PN ---
Date of Progress Note: 02/21/2019 Subjective: Patient seen and examined. Chart reviewed and case discussed with RN. The patient much more awake and alert today, however, still feeling better, very jittery, complains of blurry vision medications list reviewed. Physical Examination: Vital Signs: Temperature 99.1, heart rate 104, blood pressure 131/86, respirations 16, O2 95% on iván m air. General: Awake, alert, oriented x3. Some mild distress ill-appearing male. CV: S1, S2. Sinus tachycardia. Peripheral pulses present. Respiratory: Moving air well bilaterally no wheezing gastrointestinal. Abdomen: Abdomen is soft, nontender, nondistended. Positive bowel sounds. Extremities: No clubbing, cyanosis, or edema. Neurologic: Nonfocal. Laboratory Data: Sodium 140, potassium 3.7, chloride 108, CO2 28, BUN 11, creatinine 0.95, glucose 1 23, calcium 9.1. WBC 15.1, hemoglobin and hematocrit are 13.2 and 38.8, platelets 233, neutrophils 8 8%. Urine culture growing out gram-negative rods. CSF culture shows no growth. Assessment: A 33-year-old male with: 1.Acute metabolic encephalopathy, improving, likely secondary to urinary tract infection, psychosis and by substance abuse. 2.Acute delirium, resolving, unclear etiology, may be related to withdrawal from Xanax. 3.Acute psychosis, improved. 4.Essential hypertension, stable. 5.Nicotine dependence with cigarette smoking. 6.Anxiety disorder. 7.Acute cystitis without hematuria secondary to gram-negative rods we will continue with IV antibiot ics and follow up on urine cultures. 8.Deep vein thrombosis prophylaxis with Lovenox. 9.Chronic back pain midline without sciatica. Plan: Step down from ICU status. Continue IV fluids and IV antibiotics. The patient will need outp atient psychiatric evaluation for his generalized anxiety. Not a good candidate for benzodiazepines. The patient recently stopped taking his benzodiazepines abruptly. Plan likely discharge in the nex t 24 hours. SA/MODL Voice ID: [id number] Report ID: [id number]
[2019-02-22 05:52] LABS: Absolute Lymphocytes (CBC) 1.7 K/uL (0.7-4.9); Basophils % 0.3 % (0-1.3); Hematocrit 40.8 % (39.6-49.0); Lymphocytes % 16.6 % (15.3-44.8); MPV 8.2 fL (7.6-11.3); RBC Red Blood Cell Count 4.63 M/uL (4.33-5.43)
[2019-02-22 06:21] LABS: Albumin 3.7 g/dL (3.4-5.0); Bilirubin Total 0.7 mg/dL (0.2-1.0); Potassium 3.8 mmol/L (3.5-5.1); Protein, Total 7.9 g/dL (6.4-8.2)
[2019-02-22] MEDS: NA CHLORIDE 0.9% 1,000 ML IV SCH (07:35)
[2019-02-22] MEDS: CEFTRIAXONE/SWI 1gm 1 GM/10 ML SYR IV SCH (08:38)
[2019-02-22] MEDS: ENOXAPARIN 40 MG/0.4 ML SQ SCH (08:42)
[2019-02-22] MEDS ORDERED: POTASSIUM CL SA 10 MEQ TAB PO ONE (09:00)
[2019-02-22 10:30] VITALS: BP 143/86; TEMP 97
[2019-02-22 10:57] VITALS: O2SAT 98
--- NOTE | 2019-02-23 00:34 | DS ---
Date of Discharge: 02/22/2019 Admitting Diagnoses: 1.Acute delirium. 2.Essential hypertension. 3.Psychosis. 4.Nicotine dependence. 5.Generalized anxiety. Discharge Diagnoses: 1.Acute delirium, resolved. 2.Acute metabolic encephalopathy, likely multifactorial related to urinary tract infection and delir ium. 3.Acute psychosis, resolved, likely related to acute benzodiazepine withdrawal. 4.Essential hypertension, stable. 5.Nicotine dependence with cigarette smoking, counseled. 6.Acute cystitis without hematuria secondary to Escherichia coli. 7.Generalized anxiety disorder. 8.Chronic back pain, midline, without sciatica. Hospital Course: Patient is a 33-year-old male with past medical history of generalized anxiety diso rder, comes in with altered mental status. He was initially seen in the ER prior a day prior to admi ssion, left AMA and then came back again. Patient apparently has been taking Xanax as well as pain m edications after having dental work done in [place]. He does have a history of drug abuse, however, r ecently he had no recent use and his UDS was negative. Patient had apparently stopped taking his damien zodiazepines abruptly and likely had delirium related to withdrawal effects. Patient was tachycardic , had elevated blood pressure, tachypneic. He was initially admitted to the ICU, however, was being held in the ER due to lack of beds and was recommended to have psychiatric evaluation. Patient's fur ther workup including UA revealed UTI. He was started on IV antibiotics and began to improve. Patie nt was starting to get back to his baseline. His WBC count improved. He was no longer febrile. His urine culture results grew out E coli, which were pansensitive. He had a lumbar puncture done as we ll; however, meningitis was not suspected. His CSF culture did not show any growth. No WBCs or neut rophils were seen. No bacteria were seen. Patient was then back to his baseline, able to ambulate, was alert and oriented, did not have any further hallucinations or episodes of psychosis. He was the n cleared for discharge. Medications: As per medication reconciliation list. Followup: Follow up with primary care physician in 2 to 3 days. Follow up with psychiatrist or at [facility] in 1 to 2 weeks. Return to ER for worsening condition. Diet: Heart healthy. Activity: As tolerated. Physical Examination: General: Awake, alert, oriented x3, in no acute distress. CV: S1, S2. No murmurs. Respiratory: Moving air well bilaterally. No wheezing or stridor. Gastrointestinal: Abdomen is soft, nontender, nondistended. Positive bowel sounds. Extremities: No clubbing, cyanosis, or edema. Neurologic: Nonfocal. Psych: Mood is okay. Affect is full. Insight and judgment are fair. Time Spent: Total time spent discharging the patient was 36 minutes. MIGUELANGEL Voice ID: [id number] Report ID: [id number]
== END 2019-02-22 11:03 | disposition home or self-care (01) | DRG 896 ==
LOC: ER 04:28 → ERHOLD 12:23 → 2ND 02-21 12:06
PROVIDERS: ADMIT Family Medicine; ATTEND Family Medicine
PROC: 009U3ZX Drainage of Spinal Canal, Percutaneous Approach, Diagnostic (ICD-10-PCS; principal; 2019-02-20)
DX: F19.931 Other psychoactive substance use, unspecified with withdrawal delirium (principal); G93.41 Metabolic encephalopathy; N30.00 Acute cystitis without hematuria; B96.20 Unspecified Escherichia coli [E. coli] as the cause of diseases classified elsewhere; I10 Essential (primary) hypertension; F17.210 Nicotine dependence, cigarettes, uncomplicated; F41.1 Generalized anxiety disorder; G89.29 Other chronic pain; M54.9 Dorsalgia, unspecified; Z79.82 Long term (current) use of aspirin; F19.959 Other psychoactive substance use, unspecified with psychoactive substance-induced psychotic disorder, unspecified
CPT/HCPCS: 36415; 62270; 70450; 71045; 74176; 76377; 80048; 80053; 80076; 80307; 80320; 81003; 81015; 82140; 82945; 83735; 83880; 84100; 84157; 84484; 85025; 85610; 87070; 87077; 87086; 87088; 87186; 89050; 93005; 94760; 96361; 96372; 96374; 96375; 99285; J0696; J1630; J1650; J2250; J3360; J3486; J7030

== ENCOUNTER 2019-03-15 20:06 | Emergency (ER) | payer SELFPAY ==
--- OUTSIDE RECORDS SUMMARY | 2019-03-15 20:08 | XMS REPORT ---
:1985 [facility] Address [address] [place] [address] Dr. Boogie [address] [place] [id number] Care Team Providers Name Role Phone Unavailable Unavailable Unavailable Problems This patient has no known problems. Allergies, Adverse Reactions, Alerts This patient has no known allergies or adverse reactions. Medications This patient has no known medications.
[2019-03-15] MEDS ORDERED: HYDROMORPHONE HCL 1 MG/ML INJ ONE (20:40)
[2019-03-15] MEDS ORDERED: HYDROMORPHONE HCL 0.5 MG/0.5 ML INJ ONE (22:19)
[2019-03-15] MEDS ORDERED: DIAZEPAM 10 MG/2 ML INJ SYRINGE ONE (23:00)
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
[2019-03-16 04:01] VITALS: TEMP 98.4; O2SAT 98
[2019-03-16 04:02] VITALS: BP 118/64
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
--- NOTE | 2019-03-16 09:36 | RAD REPORT ---
EXAM DESCRIPTION: CT - Head C Spine Cap Wo Alexander - 03/16/2019 1:51 am CLINICAL HISTORY: Headache. COMPARISON: None. TECHNIQUE: CT scan of the brain without IV contrast. This exam was performed according to our depa rtmental dose-optimization program, which includes automated exposure control, adjustment of the mA a nd/or kV according to patient size and/or use of iterative reconstruction technique. FINDINGS: The ventricles, cisterns, and sulci are age-appropriate. No evidence of acute infarction, intracranial hemorrhage, extra-axial fluid collection, or midline shift. No air-fluid levels are seen in the paranasal sinuses to suggest acute sinusitis. No depressed skull fracture. IMPRESSION: No acute intracranial findings. Electronically signed by: Kev Garcia MD 03/15/2019 10:22 PM CDT Due to temporary technical issues with the PACS/Fluency reporting system, reports are being signed by the in house radiologist as a courtesy to ensure prompt reporting. The interpreting radiologist is f ully responsible for the content of the report.
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
== END 2019-03-15 23:41 | disposition home or self-care (01) ==
LOC: ER 20:06
DX: S20.229A Contusion of unspecified back wall of thorax, initial encounter (principal); S60.512A Abrasion of left hand, initial encounter; S60.511A Abrasion of right hand, initial encounter; S50.811A Abrasion of right forearm, initial encounter; V29.9XXA Motorcycle rider (driver) (passenger) injured in unspecified traffic accident, initial encounter; I10 Essential (primary) hypertension; F41.9 Anxiety disorder, unspecified
CPT/HCPCS: 70450; 71250; 72125; 96372; 96374; 96375; 99285; J1170; J3360

== ENCOUNTER 2020-05-03 16:09 | Emergency (ER) | payer SELFPAY ==
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
--- NOTE | 2020-05-03 17:37 | EDPHYS ---
Physician Documentation [facility] Name: Raman Aragon Age: 34 yrs Sex: Male : 1985 Arrival Date: 05/03/2020 Time: 16:13 Bed 17 Private MD: ED Physician Zion Vega HPI: 05/03 17:46 This 34 yrs old Male presents to ER via Ambulatory with complaints of Ankle snw Injury. 17:46 The patient presents with pain, swelling. The complaints affect the left ankle. Onset: snw The symptoms/episode began/occurred acutely. Associated signs and symptoms: Pertinent positives: swelling, of the left lateral malleolus. Severity of symptoms: At their worst the symptoms were moderate. It is unknown whether or not the patient has had similar symptoms in the past. The patient has not recently seen a physician. Historical: - Allergies: 16:35 No Known Allergies; jd3 - Home Meds: 16:35 tramadol 50 mg Oral tab daily [Active]; jd3 - PMHx: 16:35 Anxiety; Back pain; Hypertension; jd3 - PSHx: 16:35 Cholecystectomy; jd3 - Immunization history:: Adult Immunizations up to date. - Social history:: Smoking status: Patient reports the use of cigarette tobacco products, smokes one-half pack cigarettes per day. ROS: 17:45 Constitutional: Negative for fever, chills, and weight loss, Eyes: Negative for injury, snw pain, redness, and discharge, ENT: Negative for injury, pain, and discharge, Neck: Negative for injury, pain, and swelling, Cardiovascular: Negative for chest pain, palpitations, and edema, Respiratory: Negative for shortness of breath, cough, wheezing, and pleuritic chest pain, Abdomen/GI: Negative for abdominal pain, nausea, vomiting, diarrhea, and constipation, Back: Negative for injury and pain, : Negative for injury, bleeding, discharge, and swelling, Skin: Negative for injury, rash, and discoloration, Neuro: Negative for headache, weakness, numbness, tingling, and seizure, Psych: Negative for depression, anxiety, suicide ideation, homicidal ideation, and hallucinations. 17:45 MS/extremity: Positive for injury or acute deformity, decreased range of motion, pain, swelling, tenderness, of the left lateral malleolus. Exam: 17:44 Constitutional: This is a well developed, well nourished patient who is awake, alert, snw and in no acute distress. Head/Face: Normocephalic, atraumatic. Eyes: Pupils equal round and reactive to light, extra-ocular motions intact. Lids and lashes normal. Conjunctiva and sclera are non-icteric and not injected. Cornea within normal limits. Periorbital areas with no swelling, redness, or edema. ENT: Nares patent. No nasal discharge, no septal abnormalities noted. Tympanic membranes are normal and external auditory canals are clear. Oropharynx with no redness, swelling, or masses, exudates, or evidence of obstruction, uvula midline. Mucous membranes moist. Neck: Trachea midline, no thyromegaly or masses palpated, and no cervical lymphadenopathy. Supple, full range of motion without nuchal rigidity, or vertebral point tenderness. No Meningismus. Chest/axilla: Normal chest wall appearance and motion. Nontender with no deformity. No lesions are appreciated. Cardiovascular: Regular rate and rhythm with a normal S1 and S2. No gallops, murmurs, or rubs. Normal PMI, no JVD. No pulse deficits. Respiratory: Lungs have equal breath sounds bilaterally, clear to auscultation and percussion. No rales, rhonchi or wheezes noted. No increased work of breathing, no retractions or nasal flaring. Abdomen/GI: Soft, non-tender, with normal bowel sounds. No distension or tympany. No guarding or rebound. No evidence of tenderness throughout. Back: No spinal tenderness. No costovertebral tenderness. Full range of motion. Skin: Warm, dry with normal turgor. Normal color with no rashes, no lesions, and no evidence of cellulitis. Neuro: Awake and alert, GCS 15, oriented to person, place, time, and situation. Cranial nerves II-XII grossly intact. Motor strength 5/5 in all extremities. Sensory grossly intact. Cerebellar exam normal. Normal gait. Psych: Awake, alert, with orientation to person, place and time. Behavior, mood, and affect are within normal limits. 17:44 Musculoskeletal/extremity: Extremities: grossly normal except: noted in the left lateral malleolus: swelling, tenderness, Circulation is intact in all extremities. Sensation intact. Vital Signs: 16:35 BP 118 / 84; Pulse 80; Resp 16 S; Temp 97.9(O); Pulse Ox 98% on R/A; Weight 96.16 kg jd3 (R); Height 5 ft. 11 in. (180.34 cm) (R); Pain 4/10; 18:00 BP 121 / 75; Pulse 79; Resp 17; Temp 98; Pulse Ox 98% ; bp 16:35 Body Mass Index 29.57 (96.16 kg, 180.34 cm) jd3 MDM: 17:13 Patient medically screened. snw 17:47 Data reviewed: vital signs, nurses notes. Data interpreted: Pulse oximetry: on room air snw is 98 %. Interpretation: normal. Counseling: I had a detailed discussion with the patient and/or guardian regarding: the historical points, exam findings, and any diagnostic results supporting the discharge/admit diagnosis, radiology results, the need for outpatient follow up, to return to the emergency department if symptoms worsen or persist or if there are any questions or concerns that arise at home. Special discussion: Based on the history and exam findings, there is no indication for further emergent testing or inpatient evaluation. I discussed with the patient/guardian the need to see the orthopedic surgeon for further evaluation of the symptoms. I discussed with the patient/guardian the need to see the primary care provider for further evaluation of the symptoms. 05/03 16:39 Order name: XRAY Ankle LEFT 3 view; Complete Time: 18:18 jd3 Administered Medications: 17:50 Drug: TORadol 30 mg Route: IM; Site: right deltoid; bp 18:30 Follow up: Response: Pain is decreased bp Disposition: 18:45 Co-signature as Attending Physician, Zion Vega MD. rn Disposition: 05/03/20 17:36 Discharged to Home. Impression: Sprain of ankle. - Condition is Stable. - Discharge Instructions: Elastic Bandage and RICE, Ankle Sprain, Ankle Pain, Cryotherapy. - Prescriptions for Mobic 7.5 mg Oral Tablet - take 1 tablet by ORAL route once daily take with food; 20 tablet. orphenadrine citrate 100 mg Oral Tablet Sustained Release - take 1 tablet by ORAL route 2 times per day As needed; 20 tablet. - Work release form, Medication Reconciliation Form, Thank You Letter, Antibiotic Education, Prescription Opioid Use form. - Follow up: Emergency Department; When: As needed; Reason: Worsening of condition. Follow up: Private Physician; When: 2 - 3 days; Reason: Recheck today's complaints, Continuance of care, Re-evaluation by your physician. Signatures: Dispatcher [employer] EDMS Maite Rausch, [facility]-Csnw Zion Vega MD MD rn Davies, Jonathon, RN RN jJohn Olmedo RN RN bp Corrections: (The following items were deleted from the chart) 18:29 17:35 Splint - Ankle: Aircast ordered. snw bp 18:33 17:36 05/03/2020 17:36 Discharged to Home. Impression: Sprain of ankle. Condition is bp Stable. Forms are Medication Reconciliation Form, Thank You Letter, Antibiotic Education, Prescription Opioid Use. Follow up: Emergency Department; When: As needed; Reason: Worsening of condition. Follow up: Private Physician; When: 2 - 3 days; Reason: Recheck today's complaints, Continuance of care, Re-evaluation by your physician. snw
[2020-05-03] MEDS ORDERED: KETOROLAC 30 MG/ML INJ ONE (18:02)
--- NOTE | 2020-05-03 18:16 | RAD REPORT ---
EXAM DESCRIPTION: RAD - Ankle Left 3 View -05/03/2020 5:31 pm CLINICAL HISTORY: Left ankle pain status post injury FINDINGS: No fracture or dislocation is seen. Lateral soft tissue swelling
[2020-05-03 18:47] VITALS: O2SAT 98
[2020-05-03 18:49] VITALS: BP 121/75; TEMP 98
--- OUTSIDE RECORDS SUMMARY | 2020-05-08 21:07 | XMS REPORT | Continuity of Care Document ---
:1985 Author Organization [facility] t Address [address] [place] [address] Care Team Providers Name Role Phone Darlyn HACKETT Attending Clinician Doctor Unassigned, Name Attending Clinician Unavailable Beth Addison Attending Clinician Problems This patient has no known problems. Allergies, Adverse Reactions, Alerts This patient has no known allergies or adverse reactions. Medications This patient has no known medications. Procedures This patient has no known procedures. Encounters Start End Encounter Admission Attending Care Care Encounter Source Date/Time Date/Time Type Type Clinicians Facility Department ID 2019-10-16 2019-10-16 Refill Darlyn GALESLIE [id number] 00:00:00 00:00:00 [facility] [id number] Surgical [id number] [place] [id number] es [address] [place] 2019-09-25 2019-09-25 Urgent Darlyn GALESLIE [id number] 18:49:07 19:04:07 Care [facility] [id number] Surgical [id number] Special[place] [id number] [address] [place] 2019-09-25 2019-09-25 Orders Doctor MCCOY [id number] 00:00:00 00:00:00 Only Unassigned, JUANJOSE [id number] [place] [facility] [id number] [id number] 2019-03-17 2019-03-17 Emergency [facility] [id number] 20:27:24 21:16:00 Jim Arreguin [id number] [place] [id number] [place] [phone] 084 Results This patient has no known results.
== END 2020-05-03 18:33 | disposition home or self-care (01) ==
LOC: ER 16:09
DX: S93.402A Sprain of unspecified ligament of left ankle, initial encounter (principal); I10 Essential (primary) hypertension; F41.9 Anxiety disorder, unspecified; F17.210 Nicotine dependence, cigarettes, uncomplicated
CPT/HCPCS: 96372; 99283

== ENCOUNTER 2020-05-17 06:40 | Emergency (ER) | payer SELFPAY ==
--- OUTSIDE RECORDS SUMMARY | 2020-05-17 06:53 | XMS REPORT | Continuity of Care Document ---
:1985 Author Organization [facility] t Address [address] [place] [address] Care Team Providers Name Role Phone Darlyn [...] Facility Department ID 2019-10-16 2019-10-16 Refill Darlyn FLLESLIE [id number] 00:00:00 00:00:00 [facility] [id number] Surgical [id number] [place] [phone] es [address] [place] 2019-09-25 2019-09-25 Urgent Darlyn FLLESLIE [id number] 18:49:07 19:04:07 Care [facility] [id number] Surgical [id number] [place] [id number] [address] [place] 2019-09-25 2019-09-25 Orders Doctor MCCOY [id number] 14 00:00:00 00:00:00 Only Unassigned, JUANJOSE [id number] [place] [facility] [id number] [id number] 2019-03-17 2019-03-17 Emergency [facility] [id number] 20:27:24 21:16:00 Jim Arreguin [id number] [place] [id number] [place] [phone] [id number] Results This patient has no known results.
[2020-05-17] MEDS ORDERED: HYDROCODONE/APAP 10/325 TAB ONE (07:40)
--- NOTE | 2020-05-17 08:26 | ER ---
Nurse's Notes [facility] Name: Raman Aragon Age: 34 yrs Sex: Male : 1985 Arrival Date: 05/17/2020 Time: 06:42 Bed 20 Private MD: Diagnosis: Sprain of ankle;Sprain of deltoid ligament of left ankle Presentation: 05/17 07:12 Chief complaint: Patient states: L ankle pain and swelling that began at 0430 after ss "rolling it while stepping out of the truck.". Coronavirus screen: Client denies travel out of the [place] in the last 14 days. Ebola Screen: Patient denies exposure to infectious person. Patient denies travel to an Ebola-affected area in the 21 days before illness onset. Initial Sepsis Screen: Does the patient meet any 2 criteria? No. Patient's initial sepsis screen is negative. Does the patient have a suspected source of infection? No. Patient's initial sepsis screen is negative. Risk Assessment: Do you want to hurt yourself or someone else? Patient reports no desire to harm self or others. Onset of symptoms was May 17, 2020. 07:12 Method Of Arrival: Wheelchair ss 07:12 Acuity: JOSÉ MANUEL 4 ss Historical: - Allergies: 07:14 No Known Allergies; ss - Home Meds: 07:14 tramadol 50 mg Oral tab daily [Active]; ss - PMHx: 07:14 Anxiety; Back pain; Hypertension; ss - PSHx: 07:14 None; ss - Immunization history:: Adult Immunizations up to date. - Social history:: Smoking status: Patient reports the use of cigarette tobacco products, smokes one-half pack cigarettes per day. Screenin:31 Abuse screen: Denies threats or abuse. Denies injuries from another. Nutritional ss screening: No deficits noted. Tuberculosis screening: Never had TB. Fall Risk None identified. Assessment: 07:31 General: Appears uncomfortable, Behavior is calm, cooperative, Denies fever, feeling ss ill, fatigue, chills. Pain: Complains of pain in anterior aspect of left ankle and left medial ankle and left lateral ankle Pain currently is 7 out of 10 on a pain scale. Quality of pain is described as aching, tender, throbbing, Is continuous. Neuro: Level of Consciousness is awake, alert, obeys commands, Oriented to person, place, time, situation. Cardiovascular: Capillary refill < 3 seconds is brisk in bilateral fingers. Cardiovascular: Pulses are palpable in right posterior tibial artery and left posterior tibial artery. Respiratory: Airway is patent Respiratory effort is even, unlabored, Respiratory pattern is regular, symmetrical. GI: Abdomen is flat, non-distended. : No signs and/or symptoms were reported regarding the genitourinary system. EENT: Nares are clear Oral mucosa is moist. Derm: Skin is intact, is healthy with good turgor, Skin is dry, Skin is pink, warm \\T\\ dry. normal. Musculoskeletal: Circulation, motion, and sensation intact. Range of motion: intact in all extremities, Swelling present in anterior aspect of left ankle and left medial ankle and left lateral ankle. 08:52 Reassessment: Patient appears in no apparent distress at this time. Pt states that his ss went to the other side of town to get him breakfast, but she will be back soon. Also reports he has crutches at home to use and does not want to wear the air cast splint. Vital Signs: 07:12 BP 141 / 91; Pulse 100; Resp 16; Temp 98.1(TE); Pulse Ox 99% on R/A; Weight 92.99 kg; ss Height 5 ft. 11 in. (180.34 cm); Pain 7/10; 07:12 Body Mass Index 28.59 (92.99 kg, 180.34 cm) ss ED Course: 06:42 Patient arrived in ED. cl3 07:04 Holland Mcgregor MD is Attending Physician. kdr 07:14 Triage completed. ss 07:14 Arm band placed on right wrist. ss 07:25 Missy Guerrero, ELIA is Primary Nurse. bb 07:30 Patient has correct armband on for positive identification. Bed in low position. Call bb light in reach. Ice pack to injury. 07:57 Ankle Left 3 View XRAY In Process Unspecified. EDMS 07:57 Tib Fib Left XRAY In Process Unspecified. EDMS 08:52 No provider procedures requiring assistance completed. Patient did not have IV access ss during this emergency room visit. Administered Medications: 07:29 Drug: [place] 10 mg-325 mg 1 tabs Route: PO; bb 08:51 Follow up: Response: No adverse reaction; Pain is decreased ss Outcome: 08:26 Discharge ordered by . kdr 08:52 Condition: good ss 08:52 Discharge instructions given to patient, Instructed on discharge instructions, follow up and referral plans. medication usage, Demonstrated understanding of instructions, follow-up care, medications, Prescriptions given X 1. 09:05 Discharged to home via wheelchair, with family. ss 09:05 Patient left the ED. ss Signatures: Dispatcher [employer] EDMS Holland Mcgregor MD MD kdr Ballard, Brenda, RN RN Monse Johns RN RN Chandrika Scott cl3
--- NOTE | 2020-05-17 08:26 | EDPHYS ---
Physician Documentation [facility] Name: Raman Aragon Age: 34 yrs Sex: Male : 1985 Arrival Date: 05/17/2020 Time: 06:42 Bed 20 Private MD: ED Physician Holland Mcgregor HPI: 05/17 07:22 This 34 yrs old Male presents to ER via Wheelchair with complaints of Ankle kdr Injury. 07:22 The patient presents with decreased range of motion, a deformity, an injury, pain, kdr swelling, tenderness, weakness. The complaints affect the left ankle. Onset: The symptoms/episode began/occurred acutely, just prior to arrival. Context: The problem was sustained at home, resulted from the patient falling, a mis-step by the patient. Associated signs and symptoms: The patient has no apparent associated signs or symptoms. Modifying factors: The symptoms are alleviated by nothing, the symptoms are aggravated by weight bearing, movement. Severity of symptoms: At their worst the symptoms were mild, moderate, just prior to arrival, in the emergency department the symptoms are unchanged. The patient has experienced a previous episode, The patient sprained the same ankle about two weeks ago. The patient has been recently seen at the [facility] Emergency Department, last week, a couple of weeks ago. Historical: - Allergies: 07:14 No Known Allergies; ss - Home Meds: 07:14 tramadol 50 mg Oral tab daily [Active]; ss - PMHx: 07:14 Anxiety; Back pain; Hypertension; ss - PSHx: 07:14 None; ss - Immunization history:: Adult Immunizations up to date. - Social history:: Smoking status: Patient reports the use of cigarette tobacco products, smokes one-half pack cigarettes per day. ROS: 07:22 Constitutional: Negative for fever, chills, and weight loss, Eyes: Negative for injury, kdr pain, redness, and discharge, ENT: Negative for injury, pain, and discharge, Neck: Negative for injury, pain, and swelling, Cardiovascular: Negative for chest pain, palpitations, and edema, Respiratory: Negative for shortness of breath, cough, wheezing, and pleuritic chest pain, Abdomen/GI: Negative for abdominal pain, nausea, vomiting, diarrhea, and constipation, Back: Negative for injury and pain, : Negative for injury, bleeding, discharge, and swelling, Skin: Negative for injury, rash, and discoloration, Neuro: Negative for headache, weakness, numbness, tingling, and seizure activity. Psych: Negative for depression, anxiety, suicide ideation, homicidal ideation, and hallucinations, Allergy/Immunology: Negative for hives, rash, and allergies, Endocrine: Negative for neck swelling, polydipsia, polyuria, polyphagia, and marked weight changes, Hematologic/Lymphatic: Negative for swollen nodes, abnormal bleeding, and unusual bruising. 07:22 MS/extremity: Positive for injury or acute deformity, decreased range of motion, pain, swelling, tenderness, of the left lateral ankle, left medial ankle and anterior aspect of left ankle. Exam: 07:22 Constitutional: This is a well developed, well nourished patient who is awake, alert, kdr and in no acute distress. Head/Face: Normocephalic, atraumatic. Eyes: Pupils equal round and reactive to light, extra-ocular motions intact. Lids and lashes normal. Conjunctiva and sclera are non-icteric and not injected. Cornea within normal limits. Periorbital areas with no swelling, redness, or edema. 07:22 Musculoskeletal/extremity: Extremities: grossly normal except: noted in the left lateral ankle and left medial ankle: decreased ROM, deformity, pain, swelling, tenderness. Vital Signs: 07:12 BP 141 / 91; Pulse 100; Resp 16; Temp 98.1(TE); Pulse Ox 99% on R/A; Weight 92.99 kg; ss Height 5 ft. 11 in. (180.34 cm); Pain 7/10; 07:12 Body Mass Index 28.59 (92.99 kg, 180.34 cm) ss MDM: 07:22 Data reviewed: vital signs, nurses notes, radiologic studies. Counseling: I had a kdr detailed discussion with the patient and/or guardian regarding: the historical points, exam findings, and any diagnostic results supporting the discharge/admit diagnosis, radiology results, the need for outpatient follow up. 08:26 Patient medically screened. kdr 05/17 07:22 Order name: Ankle Left 3 View XRAY kdr 05/17 07:22 Order name: Tib Fib Left XRAY kdr 05/17 08:20 Order name: Cesar Wrap; Complete Time: 08:50 kdr Administered Medications: 07:29 Drug: [place] 10 mg-325 mg 1 tabs Route: PO; bb 08:51 Follow up: Response: No adverse reaction; Pain is decreased ss Disposition: 05/17/20 08:26 Discharged to Home. Impression: Sprain of ankle, Sprain of deltoid ligament of left ankle. - Condition is Stable. - Discharge Instructions: Ankle Sprain, [id number]. - Prescriptions for Tylenol- Codeine #3 300-30 mg Oral Tablet - take 16 tablets by ORAL route every 6 hours As needed; 16 tablet. - Medication Reconciliation Form, Thank You Letter, Prescription Opioid Use form. - Follow up: Private Physician; When: 2 - 3 days; Reason: If symptoms return, Further diagnostic work-up, Recheck today's complaints, Continuance of care, Re-evaluation by your physician. - Problem is new. - Symptoms have improved. Signatures: Dispatcher [employer] EDMS Holland Mcgregor MD MD kdr Missy Guerrero RN RN bb Smirch, Shelby, RN RN ss Corrections: (The following items were deleted from the chart) 08:50 08:20 Crutches ordered. kdr ss 08:50 08:20 Splint - Ankle: Aircast ordered. kdr ss 09:05 08:26 05/17/2020 08:26 Discharged to Home. Impression: Sprain of ankle; Sprain of ss deltoid ligament of left ankle. Condition is Stable. Forms are Medication Reconciliation Form, Thank You Letter, Antibiotic Education, Prescription Opioid Use. Follow up: Private Physician; When: 2 - 3 days; Reason: If symptoms return, Further diagnostic work-up, Recheck today's complaints, Continuance of care, Re-evaluation by your physician. Problem is new. Symptoms have improved. kdr
--- NOTE | 2020-05-17 09:18 | RAD REPORT ---
EXAM DESCRIPTION: RAD - Ankle Left 3 View -05/17/2020 7:56 am CLINICAL HISTORY: Left ankle pain status post injury FINDINGS: No fracture or dislocation is seen. Lateral soft tissue swelling
--- NOTE | 2020-05-17 09:18 | RAD REPORT ---
EXAM DESCRIPTION: Devyn Worrell Left05/17/2020 7:56 am CLINICAL HISTORY: Left leg pain status post injury FINDINGS: No fracture is seen
[2020-05-17 10:26] VITALS: BP 141/91; TEMP 98.1; O2SAT 99
== END 2020-05-17 09:05 | disposition home or self-care (01) ==
LOC: ER 06:40
DX: S93.422A Sprain of deltoid ligament of left ankle, initial encounter (principal); W19.XXXA Unspecified fall, initial encounter; Y93.01 Activity, walking, marching and hiking; Y92.009 Unspecified place in unspecified non-institutional (private) residence as the place of occurrence of the external cause; I10 Essential (primary) hypertension; F17.210 Nicotine dependence, cigarettes, uncomplicated
CPT/HCPCS: 99283

== ENCOUNTER 2020-11-04 11:44 | Emergency (ER) | payer SELFPAY ==
--- OUTSIDE RECORDS SUMMARY | 2020-11-04 11:46 | XMS REPORT | Continuity of Care Document ---
:1985 Author Organization [facility] t Address [address] [place] [address] Care Team Providers Name Role Phone Anna Marie Schilling NP Attending Clinician Jemima Crow Attending Clinician Darlyn HACKETT Attending Clinician Doctor Unassigned, Name [...] Date/Time Type Type Clinicians Facility Department ID 2020-08-25 2020-08-25 Emergency Shakir [facility] [id number] 13:36:00 16:07:00 Amanda Arreguin [id number] [place] [id number] [place] [id number] 2020-08-11 2020-08-11 Emergency Kristen Beal [facility] [id number] 19:19:00 20:47:00 Jemima Arreguin [id number] [place] [id number] [place] [id number] 084 2019-10-16 2019-10-16 Allison Santizo SCLESLIE [id number] 00:00:00 00:00:00 [facility] [id number] Surgical [id number] [place] [phone] es [address] [place] 2019-09-25 2019-09-25 Urgent Virgiluli [facility] [id number] 18:49:07 19:04:07 Care [facility] [id number] [place] [id number] [place] [phone] [address] [place] 2019-09-25 2019-09-25 Orders Doctor NADINE [id number] 00:00:00 00:00:00 Only Unassigned, JUANJOSE [id number] [place] [facility] [id number] 2019-03-17 2019-03-17 Emergency [facility] [id number] 20:27:24 21:16:00 Jim Arreguin [id number] [place] [id number] [place] [id number] [id number] Results This patient has no known results.
--- NOTE | 2020-11-04 12:44 | RAD REPORT ---
EXAM DESCRIPTION: CT - Head Brain Wo Cont - 11/04/2020 12:19 pm CLINICAL HISTORY: Headache;Numbness COMPARISON: Head Brain Wo Cont dated 02/20/2019 TECHNIQUE: Axial 5 mm thick images of the head were obtained without IV contrast. All CT scans are performed using dose optimization technique as appropriate and may include automated exposure control or mA/KV adjustment according to patient size. FINDINGS: No intracranial hemorrhage, mass, edema or shift of mid-line structures. No acute infarcti on changes seen. No abnormal extra-axial fluid collections. Ventricles are normal. Patient has a mild tonsillar ectopia evident. This is a stable finding and not related to any acute clinical presentati on. Mastoid air cells and visualized portions of the paranasal sinuses are clear. No acute bony findings. IMPRESSION: Negative non-contrast CT head examination for acute finding. No significant change from January 2019
[2020-11-04 13:20] LABS: ALT/SGPT 39 U/L (12-78); AST/SGOT 16 U/L (15-37); Albumin 3.7 g/dL (3.4-5.0); Alkaline Phosphatase 58 U/L (45-117); BUN Blood Urea Nitrogen 14 mg/dL (7-18); Bicarbonate 30 mmol/L (21-32); Bilirubin Direct < 0.1 mg/dL (0-0.2); Bilirubin Total 0.3 mg/dL (0.2-1.0); Glucose Level 115 mg/dL (74-106); NT PRO-BNP 11 pg/mL (<125); Potassium 3.8 mmol/L (3.5-5.1); Protein, Total 7.1 g/dL (6.4-8.2); Sodium Level 141 mmol/L (136-145); Troponin (Emerg Dept Use Only) < 0.02 ng/mL (0.0-0.045)
[2020-11-04 13:32] LABS: Absolute Lymphocytes (CBC) 2.1 K/uL (0.7-4.9); Basophils % 0.9 % (0-1.3); Lymphocytes % 39.4 % (15.3-44.8); MPV 8.7 fL (7.6-11.3); RBC Red Blood Cell Count 4.55 M/uL (4.33-5.43)
--- NOTE | 2020-11-04 14:48 | RAD REPORT ---
EXAM DESCRIPTION: RAD - Chest Single View - 11/04/2020 2:29 pm CLINICAL HISTORY: CHEST PAIN Chest pain. COMPARISON: Chest Single View dated 02/20/2019; Chest Single View dated 05/20/2018 FINDINGS: Portable technique limits examination quality. The lungs are grossly clear. The heart is normal in size. No displaced fractures. IMPRESSION: No acute intrathoracic process suspected.
[2020-11-04 15:30] LABS: Urine Blood Negative (Negative); Urine Glucose Negative (Negative); Urine Protein Negative (Negative); Urine Specific Gravity 1.025 (1.005-1.030)
[2020-11-04 15:51] LABS: Urine Bacteria NONE SEEN /HPF (NONE SEEN); Urine RBC <5 /HPF (NONE SEEN)
--- NOTE | 2020-11-04 15:51 | EDPHYS ---
Physician Documentation [facility] Name: Raman Aragon Age: 35 yrs Sex: Male : 1985 Arrival Date: 11/04/2020 Time: 11:45 Bed 4 Private MD: ED Physician Zion Vega HPI: 11/04 13:16 This 35 yrs old Male presents to ER via Ambulatory with complaints of Chest rn Pain, confusion. 13:16 The patient or guardian reports chest pain that is located primarily in the anterior rn aspect of left upper chest. The pain does not radiate. Associated signs and symptoms: Pertinent positives: lightheadedness, confusion, Pertinent negatives: cough. The chest pain is described as aching, dull. Duration: The patient or guardian reports multiple episodes, that are intermittent. Modifying factors: The symptoms are alleviated by nothing. the symptoms are aggravated by nothing. Severity of pain: At its worst the pain was mild in the emergency department the pain is unchanged. The patient has not experienced similar symptoms in the past. The patient has not recently seen a physician. Reports driving back from [employer] yesterday, began to feel "weird", drove back rest of way because he has having trouble with thoughts and acting confused, seemed to get better but his colleagues at work told him acting "slow and slurred today". Reports generalized fatigue, chest pain, tingling to left hand. No head injury. Denies drug use or ETOH. + smoker. . 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 - Social history:: Smoking status: Patient reports the use of cigarette tobacco products, smokes one pack cigarettes per day. - Family history:: not pertinent. - Hospitalizations: : No recent hospitalization is reported. ROS: 13:16 Constitutional: Negative for fever, chills, and weight loss, Eyes: Negative for injury, rn pain, redness, and discharge, Neck: Negative for injury, pain, and swelling, Cardiovascular: + chest pain Respiratory: Negative for wheezing, and pleuritic chest pain, Abdomen/GI: Negative for abdominal pain, nausea, vomiting, diarrhea, and constipation, Back: Negative for injury and pain, : Negative for injury, bleeding, discharge, and swelling, MS/Extremity: Negative for injury and deformity, Skin: Negative for injury, rash, and discoloration, Neuro: Negative for headache, weakness, and seizure. Exam: 13:16 Constitutional: This is a well developed, well nourished patient who is awake, fully rn cooperative, ambulatory to room Head/Face: Normocephalic, atraumatic. Eyes: Pupils equal round and reactive to light, extra-ocular motions intact. Lids and lashes normal. Conjunctiva and sclera are non-icteric and not injected. Cornea within normal limits. Periorbital areas with no swelling, redness, or edema. Neck: Trachea midline, no thyromegaly or masses palpated, and no cervical lymphadenopathy. Supple, full range of motion without nuchal rigidity, or vertebral point tenderness. No Meningismus. Cardiovascular: Regular rate and rhythm. No pulse deficits. Respiratory: No increased work of breathing, no retractions or nasal flaring. Abdomen/GI: Soft, non-tender Skin: Warm, dry with normal turgor. Normal color with no rashes, no lesions, and no evidence of cellulitis. MS/ Extremity: Pulses equal, no cyanosis. Neurovascular intact. Full, normal range of motion. Equal circumference. Neuro: Awake and alert, GCS 15, oriented to person, place, time, and situation. Cranial nerves II-XII grossly intact. Motor strength 5/5 in all extremities. Sensory grossly intact. Cerebellar exam normal. Normal gait. Vital Signs: 11:52 BP 134 / 86; Pulse 91; Resp 17; Temp 98.4; Pulse Ox 97% on R/A; Weight 95.25 kg; Height ll1 5 ft. 10 in. (177.80 cm); Pain 6/10; 14:30 BP 132 / 94; Pulse 92; Resp 17; Pulse Ox 97% on R/A; tw2 15:30 BP 122 / 87; Pulse 82; Resp 17; Pulse Ox 98% on R/A; tw2 11:52 Body Mass Index 30.13 (95.25 kg, 177.80 cm) ll1 MDM: 11:59 Patient medically screened. rn 15:49 Differential diagnosis: acute myocardial infarction, acute pericarditis, anxiety, rn coronary artery disease chest wall pain, costochondritis, gastroesophageal reflux disease (GERD), pleurisy, pneumothorax. Data reviewed: vital signs, nurses notes, lab test result(s), EKG, radiologic studies, CT scan, plain films, and as a result, I will discharge patient. Counseling: I had a detailed discussion with the patient and/or guardian regarding: the historical points, exam findings, and any diagnostic results supporting the discharge/admit diagnosis, lab results, radiology results, the need for outpatient follow up, to return to the emergency department if symptoms worsen or persist or if there are any questions or concerns that arise at home. Special discussion: Based on the patient's history, exam, and Dx evaluation, there is no indication for emergent intervention or inpatient Tx. It is understood by the patient/guardian that if the Sx's persist or worsen they need to return immediately for re-evaluation. I discussed with the patient/guardian in detail that at this point there is no indication for admission to the hospital. It is understood, however, that if the symptoms persist or worsen the patient needs to return immediately for re-evaluation. Based on the history and exam findings, there is no indication for further emergent testing or inpatient evaluation. 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 ED course: NO acute findings on imaging or blood, no ischemia on ECG, will dc home with cardiology f/u and return precautions.. 11/04 12:11 Order name: Basic Metabolic Panel rn 11/04 12:11 Order name: CBC with Diff rn 11/04 12:11 Order name: LFT's; Complete Time: 14:28 rn 11/04 12:11 Order name: NT PRO-BNP; Complete Time: 14:28 11/04 12:11 Order name: Troponin (emerg Dept Use Only); Complete Time: 14:28 rn 11/04 12:11 Order name: Procalcitonin; Complete Time: 14:28 rn 11/04 12:11 Order name: XRAY Chest (1 view); Complete Time: 15:03 rn 11/04 12:11 Order name: EKG; Complete Time: 12:12 rn 11/04 12:11 Order name: CT Head Brain wo Cont; Complete Time: 14:28 rn 11/04 12:11 Order name: Urine Drug Screen rn 11/04 12:11 Order name: Basic Metabolic Panel; Complete Time: 14:28 [facility] 11/04 12:11 Order name: Urine Microscopic Only rn 11/04 12:12 Order name: CBC with Automated Diff; Complete Time: 14:28 [facility] 11/04 15:29 Order name: Urine Dipstick-Ancillary; Complete Time: 15:38 [facility] 11/04 12:11 Order name: Cardiac monitoring; Complete Time: 12:38 rn 11/04 12:11 Order name: EKG - Nurse/Tech; Complete Time: 12:37 rn 11/04 12:11 Order name: IV Saline Lock; Complete Time: 12:37 rn 11/04 12:11 Order name: Labs collected and sent; Complete Time: 12:37 rn 11/04 12:11 Order name: O2 Per Protocol; Complete Time: 12:38 rn 11/04 12:11 Order name: O2 Sat Monitoring; Complete Time: 12:38 rn 11/04 12:11 Order name: Urine Dipstick-Ancillary (obtain specimen); Complete Time: 15:30 rn Administered Medications: No medications were administered Disposition: 11/04/20 15:51 Discharged to Home. Impression: Chest pain, unspecified. - Condition is Stable. - Discharge Instructions: Nonspecific Chest Pain. - Medication Reconciliation Form, Thank You Letter, Antibiotic Education, Prescription Opioid Use, Work release form form. - Follow up: Private Physician; When: As needed; Reason: Recheck today's complaints, Re-evaluation by your physician. - Problem is new. - Symptoms have improved. Signatures: Dispatcher [employer] [facility] Zion Vega MD MD rn Wise, Tara, RN RN tw2 Lisa Luo RN RN ll1 Corrections: (The following items were deleted from the chart) 16:00 15:51 11/04/2020 15:51 Discharged to Home. Impression: Chest pain, unspecified. tw2 Condition is Stable. Forms are Medication Reconciliation Form, Thank You Letter, Antibiotic Education, Prescription Opioid Use. Follow up: Private Physician; When: As needed; Reason: Recheck today's complaints, Re-evaluation by your physician. Problem is new. Symptoms have improved. rn
--- NOTE | 2020-11-04 15:51 | ER ---
Nurse's Notes [facility] Name: Raman Aragon Age: 35 yrs Sex: Male : 1985 Arrival Date: 11/04/2020 Time: 11:45 Bed 4 Private MD: Diagnosis: Chest pain, unspecified Presentation: 11/04 11:52 Chief complaint: Patient states: L sided CP for 2 days. Went to work at 6. His ll1 co-workers thought he was acting funny,. slow, slurred speech. Possible syncope episode at work. Left work early today, then his brought him pain. Coronavirus screen: Client denies travel out of the [place] in the last 14 days. At this time, the client does not indicate any symptoms associated with coronavirus-19. Ebola Screen: Patient denies travel to an Ebola-affected area in the 21 days before illness onset. Initial Sepsis Screen: Does the patient meet any 2 criteria? HR > 90 bpm. No. Patient's initial sepsis screen is negative. Does the patient have a suspected source of infection? No. Patient's initial sepsis screen is negative. Risk Assessment: Do you want to hurt yourself or someone else? Patient reports no desire to harm self or others. Onset of symptoms was November 03, 2020. 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 - Social history:: Smoking status: Patient reports the use of cigarette tobacco products, smokes one pack cigarettes per day. - Family history:: not pertinent. - Hospitalizations: : No recent hospitalization is reported. Screenin:01 Abuse screen: Denies threats or abuse. Nutritional screening: No deficits noted. tw2 Tuberculosis screening: No symptoms or risk factors identified. Fall Risk None identified. Assessment: 12:00 General: Appears in no apparent distress. Behavior is calm, cooperative, appropriate tw2 for age. Neuro: Level of Consciousness is awake, alert, obeys commands, confused, Oriented to person, place. Cardiovascular: Capillary refill < 3 seconds Patient's skin is warm and dry. Respiratory: Airway is patent Respiratory effort is even, unlabored, Respiratory pattern is regular, symmetrical. GI: No signs and/or symptoms were reported involving the gastrointestinal system. : No signs and/or symptoms were reported regarding the genitourinary system. EENT: No signs and/or symptoms were reported regarding the EENT system. Musculoskeletal: Range of motion: intact in all extremities. 14:31 Reassessment: Patient appears in no apparent distress at this time. No changes from tw2 previously documented assessment. Patient and/or family updated on plan of care and expected duration. Pain level reassessed. Patient is alert, oriented x 3, equal unlabored respirations, skin warm/dry/pink. pt states "i am ready to go, can you let the dr know", spouse states "no he is not, we need to find out what is going on with him", provider notified. 15:30 Reassessment: Patient appears in no apparent distress at this time. No changes from tw2 previously documented assessment. Patient and/or family updated on plan of care and expected duration. Pain level reassessed. Patient is alert, oriented x 3, equal unlabored respirations, skin warm/dry/pink. Vital Signs: 11:52 BP 134 / 86; Pulse 91; Resp 17; Temp 98.4; Pulse Ox 97% on R/A; Weight 95.25 kg; Height ll1 5 ft. 10 in. (177.80 cm); Pain 6/10; 14:30 BP 132 / 94; Pulse 92; Resp 17; Pulse Ox 97% on R/A; tw2 15:30 BP 122 / 87; Pulse 82; Resp 17; Pulse Ox 98% on R/A; tw2 11:52 Body Mass Index 30.13 (95.25 kg, 177.80 cm) ll1 ED Course: 11:45 Patient arrived in ED. mr 11:50 Arm band placed on. ll1 11:56 Triage completed. ll1 11:57 Bed in low position. Call light in reach. engine monitor on. Pulse ox on. NIBP on. tw2 11:59 Zion Vega MD is Attending Physician. rn 12:01 Patient maintains SpO2 saturation greater than 95% on room air. tw2 12:14 Margarita Madison, ELIA is Primary Nurse. hb 12:18 CT Head Brain wo Cont In Process Unspecified. EDMS 12:37 Inserted saline lock: 20 gauge in right antecubital area, using aseptic technique. ar Blood collected. 12:37 EKG done, by ED staff, reviewed by Zion Vega MD. ar 14:29 XRAY Chest (1 view) In Process Unspecified. EDMS 15:30 Urine Microscopic Only Sent. tw2 15:30 Urine Drug Screen Sent. tw2 15:57 No provider procedures requiring assistance completed. IV discontinued, intact, tw2 bleeding controlled, No redness/swelling at site. Pressure dressing applied. Administered Medications: No medications were administered Outcome: 15:51 Discharge ordered by . rn 15:57 Discharged to home ambulatory, with significant other. tw2 15:57 Condition: stable 15:57 Discharge instructions given to patient, significant other, Instructed on discharge instructions, follow up and referral plans. Demonstrated understanding of instructions, follow-up care. 16:00 Patient left the ED. tw2 Signatures: Dispatcher [employer] EDRI Sofia Duque, MD MD elia Donovan Heather, ELIA RN Tyra Daugherty, RN RN tw2 Yareli Teixeira mt, Lynsay, RN RN ll1
[2020-11-04 16:53] VITALS: TEMP 98.4
[2020-11-04 16:56] VITALS: BP 122/87; O2SAT 98
[2020-11-04 18:52] LABS: Barbiturates NEGATIVE (NEGATIVE); Benzodiazepines POSITIVE (NEGATIVE); Cocaine NEGATIVE (NEGATIVE); METHAMPHETAM NEGATIVE (NEGATIVE); Methadone NEGATIVE (NEGATIVE); Opiates NEGATIVE (NEGATIVE); Phencyclidine NEGATIVE (NEGATIVE); THC Cannibis NEGATIVE (NEGATIVE)
--- NOTE | 2020-11-05 08:11 | EKG ---
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
== END 2020-11-04 16:00 | disposition home or self-care (01) ==
LOC: ER 11:44
DX: R07.9 Chest pain, unspecified (principal); F17.210 Nicotine dependence, cigarettes, uncomplicated; F41.9 Anxiety disorder, unspecified; I10 Essential (primary) hypertension; R41.0 Disorientation, unspecified
CPT/HCPCS: 36415; 70450; 71045; 80048; 80076; 80307; 81003; 81015; 83880; 84145; 84484; 85025; 93005; 99285

== ENCOUNTER → 2023-09-05 | Emergency (ER) | payer SELFPAY ==
--- OUTSIDE RECORDS SUMMARY | 2023-09-05 12:24 | XMS REPORT | Continuity of Care Document ---
Author Name Unknown Address [address] [facility] [address] [place] [address] [facility] Address [address] [facility] [address] [place] [address] Care Team Providers Care Ict Analyst Name Role Phone KAYLIN LUKEUYKENNCHEYENNE Primary Care Physician Unavailab NELY Leonard Attending Clinician Unavailab JANI Araujo Attending Clinician Unavailable Jani Louis NP Attending Clinician [phone] Yadira RODRIGEZ, Sil Ayon Attending Clinician Unavailab Kristen Alonso Attending Clinician [phone] Aliya Santizo PA-C Attending Clinician [phone] Unknown, Attending Attending Clinician Unavailab le UNKNOWN, ATTENDING Attending Clinician Unavailab le Doctor Unassigned, [place] Attending Clinician U Jim Gabriel Attending Clinician [phone] NELY LR Admitting Clinician Unavailab JANI Araujo Admitting Clinician Unavailable Payers Payer Name Policy Type Policy Number Effective Date Expirati on Date Source [facility] [id number] 2019 00:00:00 [facility] [id number] 2023 00:00:00 Problems Condition Name Condition Details Condition Category Status Onset Date Resolution Date Last Treatment Date Treating Clinician Comments Source Acute postoperat hakan abdominal pain Acute postoperat hakan abdominal pain Disease Active 12-03 00:00: 00 [facility] Allergies, Adverse Reactions, Alerts Allergy Name Allergy Type Status Severity Reaction(s) Onset Date Inactive Date Treating Clinician Comments Source NO KNOWN ALLERGIE S Drug Class Active [facility] Social History Social Habit Start Date Stop Date Quantity Comments Source History of tobacco use Smokes tobacco daily [facility] Exposure to SARS-CoV-2 (event) Not sure [facility] History of Social function 2020-03-06 00:00:00 2020-03-06 00:00:00 [facility] Tobacco use and exposure 2018-10-08 00:00:00 2018-10-08 00:00:00 Smokeless tobacco non-user [facility] Sex Assigned At 1985 00:00:00 1985 00:00:00 [facility] Smoking Status Start Date Stop Date Source Smokes tobacco daily 2018-10-08 00:00:00 [facility] Medications Ordered Medication Name Filled Medication Name Start Date Stop Date Current Medication? Ordering Clinician Indication Dosage Frequency Signature (SIG) Comments Components Source HYDROcodone -acetaminop hen (NORCO) 10-325 mg tablet 1 tablet 04-26 03:15: 00 04-26 02:08 :00 No 1{tbl} 1 tablet, Oral, ONCE, 1 dose, On 04/25/23 at 2215, Routine [facility] doxycycline hyclate (Vibramycin ) capsule 100 mg 04-26 02:15: 00 04-26 02:08 :00 No 100mg 100 mg, Oral, ONCE, 1 dose, On 04/25/23 at 2115, CURT[facility]
Re ason for Anti-Infec tive: Documented Infection< br>Documen isaura Infection Site: Urine
D uration of Therapy: Other (see Comments) [facility] cefTRIAXone (ROCEPHIN) 1,000 mg in NaCl 0.9% (NS) 100 mL MINI-BAG 04-26 02:15: 00 04-26 02:35 :00 No 1000mg 1,000 mg, IV Piggyback, ONCE, 1 dose, On 04/25/23 at 2115, Administer over 30 Minutes, 100 mL
Reas on for Anti-Infec tive: Documented Infection< br>Documen isaura Infection Site: Urine
D uration of Therapy: Other (see Comments) [facility] ketorolac (TORADOL) injection 30 mg 04-26 01:45: 00 04-26 00:43 :00 No 30mg 30 mg, Slow IV Push, ONCE, 1 dose, On 04/25/23 at 2044, Routine [facility] NaCl 0.9% (NS) bolus infusion 1,000 mL 04-26 00:15: 00 04-26 00:45 :00 No 1000mL at 999 mL/hr, 1,000 mL, IV Infusion, ONCE, 1 dose, On 04/25/23 at 1914, CURTIS [facility] phenazopyri dine 200 mg tablet 04-25 00:00: 00 Yes [id number] 200mg Take 1 tablet by mouth in the morning and 1 tablet at noon and 1 tablet in the evening. [facility] doxycycline hyclate 100 mg capsule 04-25 00:00: 00 05-10 04:59 :00 No [id number] 100mg Take 1 capsule by mouth in the morning and 1 capsule in the evening. Do all this for 14 days. [facility] codeine-gua ifenesin (ROBITUSSIN AC) 10-100 mg/5 mL solution 10 mL 12-01 02:15: 00 12-01 01:18 :00 No 10mL 10 mL, Oral, ONCE, 1 dose, 11/30/20 at 2114, CURTIS [facility] azithromyci n (ZITHROMAX) tablet 500 mg 12-01 02:15: 00 12-01 01:18 :00 No 500mg 500 mg, Oral, ONCE, 1 dose, 11/30/20 at 2114, CURTIS
Re ason for Anti-Infec tive: Documented Infection< br>Documen isaura Infection Site: Respirator y
Durat ion of Therapy: Other (see Comments)< br>Reason for Anti-Infec tive: Documented Infection< br>Tani isaura Infection Site: Respirator y [facility] albuterol 90 mcg/actuati on inhaler 11-30 00:00: 00 Yes [id number] 2{puff} Inhale 2 Puffs every 4 (four) hours as needed for Wheezing or Shortness of Breath. [facility] inhalationa l spacing device (BREATHERIT E MDI SPACER) 11-30 00:00: 00 Yes [id number] Use as with MDI as directed [facility] azithromyci n (ZITHROMAX Z-NOHEMI) 250 mg tablet 11-30 00:00: 00 Yes [id number] 250mg Take 1 tablet by mouth SEE-INSTRU CTIONS. Take 500 mg day 1, then 250 mg days 2 to 5. [facility] benzonatate 200 mg capsule 11-30 00:00: 00 Yes [id number] 200mg Take 1 capsule by mouth 3 (three) times daily as needed for Cough for up to 20 doses. [facility] ibuprofen 600 mg tablet 11-30 00:00: 00 Yes [id number] 600mg Take 1 tablet by mouth every 6 (six) hours as needed for Pain (scale 4-6). [facility] albuterol 90 mcg/actuati on inhaler 11-30 00:00: 00 Yes [id number] 2{puff} Inhale 2 Puffs every 4 (four) hours as needed for Wheezing or Shortness of Breath. [facility] inhalationa l spacing device (BREATHERIT E MDI SPACER) 11-30 00:00: 00 Yes [id number] Use as with MDI as directed [facility] azithromyci n (ZITHROMAX Z-NOHEMI) 250 mg tablet 11-30 00:00: 00 Yes [id number] 250mg Take 1 tablet by mouth SEE-INSTRU CTIONS. Take 500 mg day 1, then 250 mg days 2 to 5. [facility] benzonatate 200 mg capsule 11-30 00:00: 00 Yes [id number] 200mg Take 1 capsule by mouth 3 (three) times daily as needed for Cough for up to 20 doses. [facility] ibuprofen 600 mg tablet 11-30 00:00: 00 Yes [id number] 600mg Take 1 tablet by mouth every 6 (six) hours as needed for Pain (scale 4-6). [facility] albuterol 90 mcg/actuati on inhaler 11-30 00:00: 04-25 00:00 :00 No [id number] 2{puff} Inhale 2 Puffs every 4 (four) hours as needed for Wheezing or Shortness of Breath. [facility] inhalationa l spacing device (BREATHERIT E MDI SPACER) 11-30 00:00: 00 04-25 00:00 :00 No [id number] Use as with MDI as directed [facility] azithromyci n (ZITHROMAX Z-NOHEMI) 250 mg tablet 11-30 00:00: 00 04-25 00:00 :00 No [id number] 250mg Take 1 tablet by mouth SEE-INSTRU CTIONS. Take 500 mg day 1, then 250 mg days 2 to 5. [facility] benzonatate 200 mg capsule 11-30 00:00: 00 04-25 00:00 :00 No [id number] 200mg Take 1 capsule by mouth 3 (three) times daily as needed for Cough for up to 20 doses. [facility] ibuprofen 600 mg tablet 11-30 00:00: 00 04-25 00:00 :00 No [id number] 600mg Take 1 tablet by mouth every 6 (six) hours as needed for Pain (scale 4-6). [facility] tetracaine (PONTOCAINE ) 0.5 % ophthalmic drops 1 Drop 08-25 21:00: 00 08-25 20:36 :00 No 1[drp] 1 Drop, Right Eye, ONCE, 1 dose, 08/25/20 at 1500, Routine [facility] erythromyci n 5 mg/gram (0.5 %) ophthalmic ointment 08-25 00:00: 00 09-02 05:59 :00 No [id number] 9102 .5[in_u s] Place 0.5 Inches in right eye 2 (two) times daily for 7 days. Continue until you follow up with eye doctor. [facility] ketorolac 0.4 % ophthalmic solution 08-25 00:00: 00 09-02 05:59 :00 No [id number] 9102 1[drp] Place 1 Drop in right eye 4 (four) times daily as needed for Pain (scale 1-3) or Pain (scale 4-6) for up to 7 days. [facility] ibuprofen 600 mg tablet 08-11 00:00: 00 Yes [id number] 600mg Take 1 tablet by mouth every 6 (six) hours as needed for Pain (scale 4-6). [facility] benzonatate 200 mg capsule 08-11 00:00: 00 Yes [id number] 200mg Take 1 capsule by mouth 3 (three) times daily as needed for Cough for up to 20 doses. [facility] ondansetron (ZOFRAN ODT) 4 mg disintegrat ing tablet 08-11 00:00: 00 Yes [id number] 4mg Take 1 tablet by mouth every 8 (eight) hours as needed for Nausea and Vomiting (N/V). [facility] ibuprofen 600 mg tablet 08-11 00:00: 00 08-25 00:00 :00 No [id number] 600mg Take 1 tablet by mouth every 6 (six) hours as needed for Pain (scale 4-6). [facility] benzonatate 200 mg capsule 08-11 00:00: 00 08-25 00:00 :00 No [id number] 200mg Take 1 capsule by mouth 3 (three) times daily as needed for Cough for up to 20 doses. [facility] ondansetron (ZOFRAN ODT) 4 mg disintegrat ing tablet 2021-0 1-10 00:00: 00 08-25 00:00 :00 No [id number] 4mg Take 1 tablet by mouth every 8 (eight) hours as needed for Nausea and Vomiting (N/V). [facility] promethazin e-dextromet horphan 6.25-15 mg/5 mL syrup 2020-0 2-24 00:00: 00 Yes [id number] 5mL Take 5 mL by mouth 3 (three) times daily. [facility] cetirizine 10 mg tablet 2019-0 2-24 00:00: 00 Yes [id number] 10mg Take 1 tablet by mouth daily. [facility] promethazin e-dextromet horphan 6.25-15 mg/5 mL syrup 2020-0 2-24 00:00: 00 Yes [id number] 5mL Take 5 mL by mouth 3 (three) times daily. [facility] cetirizine 10 mg tablet 2019-0 2-24 00:00: 00 Yes [id number] 10mg Take 1 tablet by mouth daily. [facility] promethazin e-dextromet horphan 6.25-15 mg/5 mL syrup 2020-0 2-24 00:00: 00 Yes [id number] 5mL Take 5 mL by mouth 3 (three) times daily. [facility] cetirizine 10 mg tablet 2019-0 2-24 00:00: 00 Yes [id number] 10mg Take 1 tablet by mouth daily. [facility] promethazin e-dextromet horphan 6.25-15 mg/5 mL syrup 2019-0 2-24 00:00: 00 08-25 00:00 :00 No [id number] 5mL Take 5 mL by mouth 3 (three) times daily. [facility] cetirizine 10 mg tablet 2019-0 2-24 00:00: 00 08-25 00:00 :00 No [id number] 10mg Take 1 tablet by mouth daily. [facility] traMADol 50 mg tablet 817 01:41: 47 03-17 00:00 :00 No 50mg Take 50 mg by mouth every 6 (six) hours as needed. [facility] lisdexamfet amine (VYVANSE) 10 mg Cap 03-18 01:25: 47 03-17 00:00 :00 No 10mg Take 10 mg by mouth every morning. [facility] cyclobenzap rine 5 mg tablet 03-17 00:00: 00 Yes [id number] 5mg Take 1 tablet by mouth 3 (three) times daily. [facility] traMADol (ULTRAM) 50 mg tablet 03-17 00:00: 00 Yes [id number] 50mg Take 1 tablet by mouth every 8 (eight) hours as needed for Pain (scale 4-6). [facility] cyclobenzap rine 5 mg tablet 03-17 00:00: 00 Yes [id number] 5mg Take 1 tablet by mouth 3 (three) times daily. [facility] traMADol (ULTRAM) 50 mg tablet 03-17 00:00: 00 Yes [id number] 50mg Take 1 tablet by mouth every 8 (eight) hours as needed for Pain (scale 4-6). [facility] cyclobenzap rine 5 mg tablet 03-17 00:00: 00 Yes [id number] 5mg Take 1 tablet by mouth 3 (three) times daily. [facility] traMADol (ULTRAM) 50 mg tablet 03-17 00:00: 00 Yes [id number] 50mg Take 1 tablet by mouth every 8 (eight) hours as needed for Pain (scale 4-6). [facility] cyclobenzap rine 5 mg tablet 03-17 00:00: 00 Yes [id number] 5mg Take 1 tablet by mouth 3 (three) times daily. [facility] traMADol (ULTRAM) 50 mg tablet 03-17 00:00: 00 Yes [id number] 50mg Take 1 tablet by mouth every 8 (eight) hours as needed for Pain (scale 4-6). [facility] cyclobenzap rine 5 mg tablet 03-17 00:00: 00 Yes [id number] 5mg Take 1 tablet by mouth 3 (three) times daily. [facility] traMADol (ULTRAM) 50 mg tablet 03-17 00:00: 00 Yes [id number] 50mg Take 1 tablet by mouth every 8 (eight) hours as needed for Pain (scale 4-6). [facility] cyclobenzap rine 5 mg tablet 03-17 00:00: 00 08-25 00:00 :00 No [id number] 5mg Take 1 tablet by mouth 3 (three) times daily. [facility] traMADol (ULTRAM) 50 mg tablet 03-17 00:00: 00 08-25 00:00 :00 No [id number] 50mg Take 1 tablet by mouth every 8 (eight) hours as needed for Pain (scale 4-6). [facility] ibuprofen 600 mg tablet 03-17 00:00: 00 03-23 04:59 :00 No [id number] 600mg Take 1 tablet by mouth 4 (four) times daily as needed for Pain (scale 4-6) for up to 5 days. [facility] acetaminoph en (TYLENOL) 325 mg tablet 03-17 00:00: 00 03-23 04:59 :00 No [id number] 975mg Take 3 tablets by mouth 4 (four) times daily for 5 days. This is the maximum safe dose for a healthy adult. [facility] azithromyci n 250 mg tablet 03-17 00:00: 00 03-21 04:59 :00 No [id number] 500mg Take 2 tablets by mouth daily for 3 days. [facility] amitriptyli ne 25 mg tablet 10-08 00:00: 00 03-17 00:00 :00 No [id number] 1-2 tab at bedtime to relax muscles. [facility] Vital Signs Vital Name Observation Time Observation Value Comments Chery lyles Systolic blood pressure 2023-04-26 01:00:00 139 mm[Hg] Jay o [facility] Diastolic blood pressure 2023-04-26 01:00:00 76 mm[Hg] [facility] Heart rate 2023-04-26 01:00:00 91 /min [facility] Respiratory rate 2023-04-26 01:00:00 20 /min [facility] Oxygen saturation in Arterial blood by Pulse oximetry 2023-04-26 01:00:00 97 /min [facility] Body temperature 2023-04-25 23:11:00 37 Carito [facility] Body height 2023-04-25 23:11:00 180.3 cm [facility] Body weight 2023-04-25 23:11:00 92.987 kg [facility] BMI 2023-04-25 23:11:00 28.59 kg/m2 [facility] Systolic blood pressure 2020-12-01 00:46:00 154 mm[Hg] [facility] Diastolic blood pressure 2020-12-01 00:46:00 99 mm[Hg] [facility] Heart rate 2020-12-01 00:46:00 88 /min [facility] Body temperature 2020-12-01 00:46:00 37.11 Carito [facility] Respiratory rate 2020-12-01 00:46:00 20 /min [facility] Body weight 2020-12-01 00:46:00 95.255 kg [facility] BMI 2020-12-01 00:46:00 29.29 kg/m2 [facility] Oxygen saturation in Arterial blood by Pulse oximetry 2020-12-01 00:46:00 97 /min [facility] Systolic blood pressure 2020-08-25 22:02:00 127 mm[Hg] [facility] Diastolic blood pressure 2020-08-25 22:02:00 95 mm[Hg] [facility] Heart rate 2020-08-25 22:02:00 75 /min [facility] Respiratory rate 2020-08-25 22:02:00 18 /min [facility] Oxygen saturation in Arterial blood by Pulse oximetry 2020-08-25 22:02:00 95 /min [facility] Body temperature 2020-08-25 20:48:00 37 Carito [facility] Body weight 2020-08-25 19:31:00 94.802 kg [facility] BMI 2020-08-25 19:31:00 29.15 kg/m2 [facility] Systolic blood pressure 2020-08-25 22:02:00 127 mm[Hg] [facility] Diastolic blood pressure 2020-08-25 22:02:00 95 mm[Hg] [facility] Heart rate 2020-08-25 22:02:00 75 /min [facility] Respiratory rate 2020-08-25 22:02:00 18 /min [facility] Oxygen saturation in Arterial blood by Pulse oximetry 2020-08-25 22:02:00 95 /min [facility] Body temperature 2020-08-25 20:48:00 37 Carito [facility] Body weight 2020-08-25 19:31:00 94.802 kg [facility] BMI 2020-08-25 19:31:00 29.15 kg/m2 [facility] Oxygen saturation in Arterial blood by Pulse oximetry 2020-08-12 02:29:00 96 /min [facility] Systolic blood pressure 2020-08-12 02:29:00 133 mm[Hg] [facility] Diastolic blood pressure 2020-08-12 02:29:00 86 mm[Hg] [facility] Heart rate 2020-08-12 02:29:00 96 /min [facility] Body temperature 2020-08-12 02:29:00 37.11 Carito [facility] Respiratory rate 2020-08-12 02:29:00 17 /min [facility] Body height 2020-08-12 01:34:00 180.3 cm [facility] Body weight 2020-08-12 01:34:00 94.802 kg [facility] BMI 2020-08-12 01:34:00 29.15 kg/m2 [facility] Oxygen saturation in Arterial blood by Pulse oximetry 2020-08-12 02:29:00 96 /min [facility] Systolic blood pressure 2020-08-12 02:29:00 133 mm[Hg] [facility] Diastolic blood pressure 2020-08-12 02:29:00 86 mm[Hg] [facility] Heart rate 2020-08-12 02:29:00 96 /min [facility] Body temperature 2020-08-12 02:29:00 37.11 Carito [facility] Respiratory rate 2020-08-12 02:29:00 17 /min [facility] Body height 2020-08-12 01:34:00 180.3 cm [facility] Body weight 2020-08-12 01:34:00 94.802 kg [facility] BMI 2020-08-12 01:34:00 29.15 kg/m2 [facility] Systolic blood pressure 2019-09-26 01:05:00 130 mm[Hg] [facility] Diastolic blood pressure 2019-09-26 01:05:00 79 mm[Hg] [facility] Heart rate 2019-09-26 01:05:00 81 /min [facility] Body temperature 2019-09-26 01:05:00 36.89 Carito [facility] Respiratory rate 2019-09-26 01:05:00 17 /min [facility] Body height 2019-09-26 01:05:00 177.8 cm [facility] Body weight 2019-09-26 01:05:00 97.251 kg [facility] BMI 2019-09-26 01:05:00 30.76 kg/m2 [facility] Oxygen saturation in Arterial blood by Pulse oximetry 2019-09-26 01:05:00 97 /min [facility] Systolic blood pressure 2019-09-26 01:05:00 130 mm[Hg] [facility] Diastolic blood pressure 2019-09-26 01:05:00 79 mm[Hg] [facility] Heart rate 2019-09-26 01:05:00 81 /min [facility] Body temperature 2019-09-26 01:05:00 36.89 Carito [facility] Respiratory rate 2019-09-26 01:05:00 17 /min [facility] Body height 2019-09-26 01:05:00 177.8 cm [facility] Body weight 2019-09-26 01:05:00 97.251 kg [facility] BMI 2019-09-26 01:05:00 30.76 kg/m2 [facility] Oxygen saturation in Arterial blood by Pulse oximetry 2019-09-26 01:05:00 97 /min [facility] Systolic blood pressure 2019-03-18 01:23:00 147 mm[Hg] [facility] Diastolic blood pressure 2019-03-18 01:23:00 95 mm[Hg] [facility] Heart rate 2019-03-18 01:23:00 88 /min [facility] Body temperature 2019-03-18 01:23:00 36.56 Carito [facility] Respiratory rate 2019-03-18 01:23:00 20 /min [facility] Body height 2019-03-18 01:23:00 177.8 cm [facility] Body weight 2019-03-18 01:23:00 95.255 kg [facility] BMI 2019-03-18 01:23:00 30.13 kg/m2 [facility] Oxygen saturation in Arterial blood by Pulse oximetry 2019-03-18 01:23:00 97 /min [facility] Systolic blood pressure 2019-03-18 01:23:00 147 mm[Hg] [facility] Diastolic blood pressure 2019-03-18 01:23:00 95 mm[Hg] [facility] Heart rate 2019-03-18 01:23:00 88 /min [facility] Body temperature 2019-03-18 01:23:00 36.56 Carito [facility] Respiratory rate 2019-03-18 01:23:00 20 /min [facility] Body height 2019-03-18 01:23:00 177.8 cm [facility] Body weight 2019-03-18 01:23:00 95.255 kg [facility] BMI 2019-03-18 01:23:00 30.13 kg/m2 [facility] Oxygen saturation in Arterial blood by Pulse oximetry 2019-03-18 01:23:00 97 /min [facility] Procedures Procedure Date / Time Performed Performing Clinician Source US SCROTUM AND CONTENTS 2023-04-26 01:40:38 Korey Louis [facility] COMP. METABOLIC PANEL (11438) 2023-04-25 23:50:00 Jani Lousi [facility] CBC WITH DIFF 2023-04-25 23:50:00 Jani [facility] URINALYSIS 2023-04-25 23:50:00 Jani Louis [facility] HIV 1/2 AG-AB WITH REFLEX 2023-04-25 23:50:00 Jani Louis [facility] NOTICE OF PRIVACY PRACTICES 2023-04-25 23:04:20 Doctor Unassigned, [place] [facility] CONSENT/REFUSAL FOR DIAGNOSIS AND TREATMENT 2023-04-25 23:03:40 Doctor Unassigned, [place] [facility] NOTICE OF PRIVACY PRACTICES 2020-12-01 00:42:40 Doctor Unassigned, [place] [facility] CONSENT/REFUSAL FOR DIAGNOSIS AND TREATMENT 2020-12-01 00:42:18 Doctor Unassigned, [place] [facility] ADC,CLC OR LCC ONLY - INFLUENZA A & B DIRECT ANTIGEN 2020-08-25 20:48:00 Jani Louis [facility] COVID-19 (ID NOW RAPID TESTING) 2020-08-25 20:01:00 Jani Louis [facility] CONSENT/REFUSAL FOR DIAGNOSIS AND TREATMENT 2020-08-25 19:22:39 Doctor Unassigned, [place] [facility] COVID-19 (ID NOW RAPID TESTING) 2020-08-12 01:40:00 Dianna Núñez [facility] NOTICE OF PRIVACY PRACTICES 2020-08-12 01:14:24 Doctor Unassigned, [place] [facility] CONSENT/REFUSAL FOR DIAGNOSIS AND TREATMENT 2020-08-12 01:13:07 Doctor Unassigned, [place] [facility] POCT FLU A AND B (MOLECULAR) 2019-09-26 01:14:00 Aliya Santizo [facility] NO SHOW OR MISSED APPOINTMENT POLICY ACKNOWLEDGEMENT 2019-09-26 00:48:08 Doctor Unassigned, [place] [facility] XR ANKLE 3+ VW RIGHT 2019-03-18 01:40:31 Jose Menendez i [facility] XR FOOT 3+ VW RIGHT 2019-03-18 01:40:09 Jim Law [facility] NOTICE OF PRIVACY PRACTICES 2019-03-18 01:10:24 Doctor Unassigned, [place] [facility] CONSENT/REFUSAL FOR DIAGNOSIS AND TREATMENT 2019-03-18 01:10:11 Doctor Unassigned, [place] [facility] Encounters Start Date/Time End Date/Time Encounter Type Admission Type Attending [facility] Care [facility] Care Department Encounter ID Source 2021-06-01 16:31:56 Emergency [facility] [id number] [facility] 2021-05-31 19:09:42 Emergency [facility] [id number] [facility] 2021-05-31 16:19:38 Emergency [facility] [id number] [facility] 2023-05-04 14:10:00 2023-05-05 12:46:00 Outpatient NELY LR [facility] [id number] [facility] 2023-04-25 18:12:00 2023-04-25 21:38:00 Emergency X [facility] E[facility] [id number] [facility] 2023-04-25 18:12:00 2023-04-25 21:38:00 Emergency Jani Louis G [facility] 1..114 350.1.13.10 4.2.7.2.686 [id number] [facility] 2020-12-01 00:00:00 2020-12-01 00:00:00 Letter (Out) Sil May [facility] 1.840.114 350.1.13.10 4.2.7.2.686 [id number] [facility] 2020-11-30 19:49:00 2020-11-30 20:30:00 Emergency Kristen Beal [facility] 1.2.840.114 350.1.13.10 4.2.7.2.686 [id number] [facility] 2020-08-25 13:36:00 2020-08-25 16:07:00 Emergency Jani Louis [facility] 1.2.840.114 350.1.13.10 4.2.7.2.686 [id number] [facility] 2020-08-25 13:36:00 2020-08-25 16:07:00 Emergency Jani Louis [facility] 1.2.840.114 350.1.13.10 4.2.7.2.686 [id number] 2020-08-11 19:19:00 2020-08-11 20:47:00 Emergency Kristen Beal [facility] 1.2.840.114 350.1.13.10 4.2.7.2.686 [id number] [facility] 2020-08-11 19:19:00 2020-08-11 20:47:00 Emergency Kristen Beal [facility] 1.2.840.114 350.1.13.10 4.2.7.2.686 [id number] 2019-10-16 00:00:00 2019-10-16 00:00:00 Aliya Cote [facility] 1.2.840.114 350.1.13.10 4.2.7.2.686 [id number] [facility] 2019-10-16 00:00:00 2019-10-16 00:00:00 Refill Aliya Santizo [facility] rashad Arreguin 1.2.840.114 350.1.13.10 4.2.7.2.686 [id number] 2019-09-25 18:49:07 2019-09-25 19:04:07 Urgent Care Aliya Santizo [facility] rashad Arreguin 1.2.840.114 350.1.13.10 4.2.7.2.686 [id number] 2019-09-25 18:49:07 2019-09-25 19:04:07 Urgent Care Aliya Santizo Unknown, Attending [facility] Surgical [facility] rashad [facility] 1.2.840.114 350.1.13.10 4.2.7.2.686 [id number] [facility] 2019-09-25 18:45:00 2019-09-25 18:45:00 Outpatient R UNKNOWN, ATTENDING [facility] [id number] [facility] 2019-09-25 00:00:00 2019-09-25 00:00:00 Orders Only Doctor Unassigned, [place] [facility] 1.2.840.114 350.1.13.10 4.2.7.2.686 [id number] [facility] 2019-09-25 00:00:00 2019-09-25 00:00:00 Orders Only Doctor Unassigned, [place] [facility] 1.2.840.114 350.1.13.10 4.2.7.2.686 [id number] 2019-03-17 20:27:24 2019-03-17 21:16:00 Emergency Jim Law [facility] 1.2.840.114 350.1.13.10 4.2.7.2.686 [id number] [facility] 2019-03-17 20:27:24 2019-03-17 21:16:00 Emergency Jim Law [facility] 1.2.840.114 350.1.13.10 4.2.7.2.686 [id number] Results Test Description Test Time Test Comments Results Result Co mments Source [facility]. METABOLIC PANEL (12871)2023-04-26 00:29:55* Test Item Value Reference Range Interpretation Comme nts NA (test code = 0456176077) 140 mmol/L 135-145 K (test code = 4470008351) 4.3 mmol/L 3.5-5.0 CL (test code = 1197266534) 104 mmol/L 98-108 CO2 TOTAL (test code = 4280269376) 27 mmol/L 23-31 AGAP (test code = 0622827267) 9 2-16 BUN (test code = 7309675934) 16 mg/dL 7-23 GLUCOSE (test code = 0879899208) 72 mg/dL 70-110 CREATININE (test code = 8723466577) 1.05 mg/dL 0.60-1.25 TOTAL BILI (test code = 2808072728) 0.6 mg/dL 0.1-1.1 CALCIUM (test code = 0291952401) 9.0 mg/dL 8.6-10.6 T PROTEIN (test code = 6990481059) 7.4 g/dL 6.3-8.2 ALBUMIN (test code = 9410706085) 4.3 g/dL 3.5-5.0 ALK PHOS (test code = 9500907599) 62 U/L 34-122 ALTv (test code = 1742-6) 30 U/L 5-50 AST(SGOT) (test code = 6781303738) 39 U/L 13-40 eGFR (test code = 4568894064) 79.5 mL/min/1.73m2 PHILIPPE (test code = PHILIPPE) Association of Glomerular Filtration Rate (GFR) and Staging of Kidney Disease* + + +- +| GFR (mL/min/1.73 m2) ?| With Kidney Damage ?| ?Without Kidney Damage+ ------+ ----+ ------+| ?>90 ?| ?Stage one ?| ? Normal ?+ -+ + -+| ?60-89 ?| ?Stage two ?| ? Decreased GFR ? + + +- +| ?30-59 ?| ?Stage three ?| ? Stage three ? + + +- +| ?15-29 ?| ?Stage four ? | ? Stage four ?+ -+ + -+| ?<15 (or dialysis) ? ?| ?Stage five ? | ? Stage five ?+ -+ + -+ *Each stage assumes the associated GFR level has been in effect for at least three months. ?Stages 1 to 5, with or without kidney disease, indicate chronic kidney disease. Notes: Determination of stages one and two (with eGFR >59mL/min/1.73 m2) requires estimation of kidney damage for at least three months as defined by structural or functional abnormalities of the kidney, manifested by either:Pathological abnormalities or Markers of kidney damage (including abnormalities in the composition of the blood or urine or abnormalities in imaging tests). [facility] WITH [id number] 00:17:54* Test Item Value Reference Range Interpretation Comme nts WBC (test code = 6690-2) 13.71 See_Comment H [Automated message] The system which generated this result transmitted reference range: 4.20 - 10.70 10*3/?L. The reference range was not used to interpret this result as normal/abnormal. RBC (test code = 789-8) 5.17 See_Comment [Automated message] The system which generated this result transmitted reference range: 4.26 - 5.52 10*6/?L. The reference range was not used to interpret this result as normal/abnormal. HGB (test code = 718-7) 14.9 g/dL 12.2-16.4 HCT (test code = 4544-3) 44.4 % 38.4-49.3 MCV (test code = 787-2) 85.9 fL 81.7-95.6 MCH (test code = 785-6) 28.8 pg 26.1-32.7 MCHC (test code = 786-4) 33.6 g/dL 31.2-35.0 RDW-SD (test code = 46851-1) 43.7 fL 38.5-51.6 RDW-CV (test code = 788-0) 13.9 % 12.1-15.4 PLT (test code = 777-3) 269 See_Comment [Automated message] The system which generated this result transmitted reference range: 150 - 328 10*3/?L. The reference range was not used to interpret this result as normal/abnormal. MPV (test code = 08670-1) 9.9 fL 9.8-13.0 NRBC/100 WBC (test code = 5310202859) 0.0 See_Comment [Automated message] The system which generated this result transmitted reference range: 0.0 - 10.0 /100 WBCs. The reference range was not used to interpret this result as normal/abnormal. NRBC x10^3 (test code = 0400753832) See_Comment [Automated message] The system which generated this result transmitted reference range: 10*3/?L. The reference range was not used to interpret this result as normal/abnormal. GRAN MAT (NEUT) % (test code = 770-8) 74.8 % IMM GRAN % (test code = 0374745643) 0.50 % LYMPH % (test code = 736-9) 13.8 % MONO % (test code = 5905-5) 9.2 % EOS % (test code = 713-8) 1.0 % BASO % (test code = 706-2) 0.7 % GRAN MAT x10^3(ANC) (test code = 8651790665) 10.25 10*3/uL 1.99-6.95 H IMM GRAN x10^3 (test code = 0670880904) 0.07 10*3/uL 0.00-0.06 H LYMPH x10^3 (test code = 731-0) 1.89 10*3/uL 1.09-3.23 MONO x10^3 (test code = 742-7) 1.26 10*3/uL 0.36-1.02 H EOS x10^3 (test code = 711-2) 0.14 10*3/uL 0.06-0.53 BASO x10^3 (test code = 704-7) 0.10 10*3/uL 0.01-0.09 H Lab Interpretation (test code = 11875-9) Abnormal [facility] - INFLUENZA A & B DIRECT [id number] 21:29:00* Test Item Value Reference Range Interpretation Comme nts Influenza A (test code = 77773-8) Negative Negative Influenza B (test code = 71192-0) Negative Negative Lab Interpretation (test cod e = 81793-5) [facility]ID [facility]2020-08-25 20:22:00* Test Item Value Reference Range Interpretation Comme nts SARS-CoV-2 Rapid ID NOW (test code = 35201-4) Not Detected Not Detected PHILIPPE (test code = PHILIPPE) ID NOW COVID-19 As say is an isothermal nucleic acid amplification test intended for the qualitative detection of nucleic acid from SARS-CoV-2 viral RNA in nasopharyngeal (CURRICULUM AND ASSESSMENT DIRECTOR) specimens. It is used under Emergency Use Authorization (EUA) by FDA. The limit of detection (LOD) of the assay is 125 Genome Equivalents/mL. A positive result is indicative of the presence of SARS-CoV-2 RNA. ?Clinical correlation with patient history and other diagnostic information is necessary to determine patient infection status. A negative (Not Detected) result does not preclude SARS-CoV-2 infection. In patients with clinical symptoms and other tests that are consistent with SARS-CoV-2 infection, negative results should be treated as presumptive negative and a new specimen should be tested with alternative PCR molecular test. Invalid: Please collect a new specimen for repeat patient testing if clinically indicated. Lab Interpretation (test code = 06013-5) Normal [facility]-19 (ID NOW RAPID TESTING)2020-08-12 02:24:00* Test Item Value Reference Range Interpretation Comme nts SARS-CoV-2 Rapid ID NOW (test code = 71132-8) Not Detected Not Detected PHILIPPE (test code = PHILIPPE) ID NOW COVID-19 As say is an isothermal nucleic acid amplification test intended for the qualitative detection of nucleic acid from SARS-CoV-2 viral RNA in nasopharyngeal (CURRICULUM AND ASSESSMENT DIRECTOR) specimens. It is used under Emergency Use Authorization (EUA) by FDA. The limit of detection (LOD) of the assay is 125 Genome Equivalents/mL. A positive result is indicative of the presence of SARS-CoV-2 RNA. ?Clinical correlation with patient history and other diagnostic information is necessary to determine patient infection status. A negative (Not Detected) result does not preclude SARS-CoV-2 infection. In patients with clinical symptoms and other tests that are consistent with SARS-CoV-2 infection, negative results should be treated as presumptive negative and a new specimen should be tested with alternative PCR molecular test. Invalid: Please collect a new specimen for repeat patient testing if clinically indicated. Lab Interpretation (test code = 52274-2) Normal [facility])2019-09-26 01:24:00* Test Item Value Reference Range Interpretation Comme nts POCT INFLUENZA A (test code = 3840) negative Negative - Negative POCT INFLUENZA B (test code = 3841) negative Negative - Negative Lab Interpretation (test cod e = 83477-1) Normal [facility]"
--- NOTE | 2023-09-05 13:52 | RAD REPORT ---
EXAM DESCRIPTION: RAD - Hip Right 2 View - 09/05/2023 1:42 pm CLINICAL HISTORY: Right hip pain FINDINGS: No fracture or dislocation is seen. No bone or joint abnormality noted
--- NOTE | 2023-09-05 13:55 | EDPHYS ---
Physician Documentation [facility] Name: Raman Aragon Age: 38 yrs Sex: Male : 1985 Arrival Date: 09/05/2023 Time: 12:21 Bed 10 Private MD: ED Physician Jeniffer Perry HPI: 09/05 14:16 This 38 yrs old Male presents to ER via Ambulatory with complaints of Back Pain. snw 14:16 The symptoms are located in the right hip pain with radiation down front of thigh and snw around back. as noted. Severity of symptoms: At their worst the symptoms were moderate. long history of sciatica and chronic pain. rx oxycodone tid. Historical: - Allergies: 12:49 Codeine; ss - Home Meds: 12:49 oxycodone 30 mg Oral tablet 1 tab 3 times per day [Active]; Adderall XR 20 mg Oral ss Capsule, ER 24 hr 1 cap 2 times per day [Active]; - PMHx: 12:49 Anxiety; Back pain; Hypertension; ss - PSHx: 12:49 Cholecystectomy; ss - Immunization history:: Client reports having NOT received the Covid vaccine. - Social history:: Smoking status: Reported history of juuling and/or vaping. ROS: 14:18 Constitutional: Negative for fever, chills, and weight loss, Eyes: Negative for injury, snw pain, redness, and discharge, ENT: Negative for injury, pain, and discharge, Neck: Negative for injury, pain, and swelling, Cardiovascular: Negative for chest pain, palpitations, and edema, Respiratory: Negative for shortness of breath, cough, wheezing, and pleuritic chest pain, Abdomen/GI: Negative for abdominal pain, nausea, vomiting, diarrhea, and constipation, Back: Negative for injury and pain, : Negative for injury, bleeding, discharge, and swelling, Skin: Negative for injury, rash, and discoloration, Neuro: Negative for headache, weakness, numbness, tingling, and seizure, Psych: Negative for depression, anxiety, suicide ideation, homicidal ideation, and hallucinations, 14:18 MS/extremity: Positive for pain, of the right hip, Exam: 14:11 Constitutional: This is a well developed, well nourished patient who is awake, alert, snw and in no acute distress. Head/Face: Normocephalic, atraumatic. Eyes: Pupils equal round and reactive to light, extra-ocular motions intact. Lids and lashes normal. Conjunctiva and sclera are non-icteric and not injected. Cornea within normal limits. Periorbital areas with no swelling, redness, or edema. ENT: Nares patent. No nasal discharge, no septal abnormalities noted. Tympanic membranes are normal and external auditory canals are clear. Oropharynx with no redness, swelling, or masses, exudates, or evidence of obstruction, uvula midline. Mucous membranes moist. Neck: Trachea midline, no thyromegaly or masses palpated, and no cervical lymphadenopathy. Supple, full range of motion without nuchal rigidity, or vertebral point tenderness. No Meningismus. Chest/axilla: Normal chest wall appearance and motion. Nontender with no deformity. No lesions are appreciated. Respiratory: Lungs have equal breath sounds bilaterally, clear to auscultation and percussion. No rales, rhonchi or wheezes noted. No increased work of breathing, no retractions or nasal flaring. Abdomen/GI: Soft, non-tender, with normal bowel sounds. No distension or tympany. No guarding or rebound. No evidence of tenderness throughout. 14:11 Back: No spinal tenderness. No costovertebral tenderness. Full range of motion. Skin: Warm, dry with normal turgor. Normal color with no rashes, no lesions, and no evidence of cellulitis. Neuro: Awake and alert, GCS 15, oriented to person, place, time, and situation. Cranial nerves II-XII grossly intact. Motor strength 5/5 in all extremities. Sensory grossly intact. Cerebellar exam normal. Normal gait. Psych: Awake, alert, with orientation to person, place and time. Behavior, mood, and affect are within normal limits. 14:11 Cardiovascular: Rate: tachycardic, 14:11 Musculoskeletal/extremity: ROM: intact in all extremities, Circulation is intact in all extremities. tenderness to right hip/anterior thigh with movement 14:11 Neuro: Exam negative for Vital Signs: 12:47 BP 154 / 94; Pulse 100; Resp 100; Temp 98.5(TE); Pulse Ox 100% on R/A; Weight 92.99 kg; ss Height 5 ft. 10 in. ; Pain 3/10; 14:08 BP 139 / 88; Pulse 98; Resp 18; Pulse Ox 98% on R/A; Pain 8/10; tl4 12:47 Body Mass Index 29.41 (92.99 kg, 177.8 cm) ss 12:47 Pain Scale: Adult ss 14:08 Pain Scale: Adult tl4 MDM: 12:54 Patient medically screened. snw 14:12 Differential diagnosis: arthritis, chronic back pain, Fatigue Joint Injury sprain. Data snw reviewed: vital signs, nurses notes, radiologic studies, plain films. Counseling: I had a detailed discussion with the patient and/or guardian regarding the historical points, exam findings, and any diagnostic results supporting the discharge/admit diagnosis, the presence of at least one elevated blood pressure reading (>120/80) during this emergency department visit, radiology results, the need for outpatient follow up, for definitive care, a orthopedic surgeon, to return to the emergency department if symptoms worsen or persist or if there are any questions or concerns that arise at home. Response to treatment: declined anti-inflammatories. states he has pain meds at home, takes Oxycodone TID. 14:18 ED course: denies fever, illness, recent trauma, cauda equina s/s (no incontinence). snw 09/05 13:07 Order name: Hip Right 2 View XRAY; Complete Time: 13:53 snw Administered Medications: 14:05 CANCELLED (Patient Refused): [id number] mg IM once snw Disposition Summary: 09/05/23 13:54 Discharge Ordered Notes: Location: Home snw Condition: Stable snw Diagnosis - Other bursitis of hip, right hip snw Followup: snw - With: Emergency Department - When: As needed - Reason: Worsening of condition Followup: snw - With: Private Physician - When: 2 - 3 days - Reason: Recheck today's complaints, Continuance of care, Re-evaluation by your physician Discharge Instructions: - Discharge Summary Sheet snw - Hip Bursitis snw - Heat Therapy snw Forms: - Medication Reconciliation Form snw - Thank You Letter snw - Antibiotic Education snw - Prescription Opioid Use snw - Patient Portal Instructions snw - Leadership Thank You Letter snw Prescriptions: - Mobic 7.5 mg Oral Tablet - take 1 tablet ORAL route once daily take with food; 20 tablet; Refills: 0, snw Product Selection Permitted Signatures: Dispatcher [employer] EDMS Maite Rausch, TITLE CURATOR-C TITLE CURATOR-Csnw Monse Boyle, RN RN ss Reji Obrien tl4 Corrections: (The following items were deleted from the chart) 14:05 13:54 Ketorolac IM 30 mg IM once ordered. snw snw
--- NOTE | 2023-09-05 13:55 | ER ---
Nurse's Notes [facility] Name: Raman Aragon Age: 38 yrs Sex: Male : 1985 Arrival Date: 09/05/2023 Time: 12:21 Bed 10 Private MD: Diagnosis: Other bursitis of hip, right hip Presentation: 09/05 12:47 Chief complaint: Patient states: R hip pain that radiates down R leg x 1 month. Pt ss states it is different than the sciatica he has dealt with in the past. No known injury. Coronavirus screen: Client denies travel out of the [place] in the last 14 days. Ebola Screen: Patient denies exposure to infectious person. Patient denies travel to an Ebola-affected area in the 21 days before illness onset. Initial Sepsis Screen: Does the patient meet any 2 criteria? No. Patient's initial sepsis screen is negative. Does the patient have a suspected source of infection? No. Patient's initial sepsis screen is negative. Risk Assessment: Do you want to hurt yourself or someone else? Patient reports no desire to harm self or others. Onset of symptoms is unknown. 12:47 Method Of Arrival: Ambulatory ss 12:47 Acuity: JOSÉ MANUEL 3 ss Historical: - Allergies: 12:49 Codeine; ss - Home Meds: 12:49 oxycodone 30 mg Oral tablet 1 tab 3 times per day [Active]; Adderall XR 20 mg Oral ss Capsule, ER 24 hr 1 cap 2 times per day [Active]; - PMHx: 12:49 Anxiety; Back pain; Hypertension; ss - PSHx: 12:49 Cholecystectomy; ss - Immunization history:: Client reports having NOT received the Covid vaccine. - Social history:: Smoking status: Reported history of juuling and/or vaping. Screenin:38 [facility] ED Fall Risk Assessment (Adult) History of falling in the last 3 months, ss including since admission No falls in past 3 months (0 pts). Abuse screen: Denies threats or abuse. Denies injuries from another. Nutritional screening: No deficits noted. Tuberculosis screening: Never had TB. Assessment: 13:38 General: Appears uncomfortable, Behavior is calm, cooperative, joking with during ss triage. Pain: Complains of pain in R hip Pain radiates to right leg Pain currently is 3 out of 10 on a pain scale. at worst was 8 out of 10 on a pain scale. Pain began 1 month ago Is continuous. Neuro: Level of Consciousness is awake, alert, obeys commands, Oriented to person, place, time, situation. Cardiovascular: Pulses are palpable in right dorsalis pedis artery and left dorsalis pedis artery. Respiratory: Airway is patent Trachea midline Respiratory effort is even, unlabored, Respiratory pattern is regular, symmetrical. GI: Patient currently denies diarrhea, nausea, vomiting. Derm: Skin is intact, is healthy with good turgor, Skin is pink, warm \T\ dry. normal. Vital Signs: 12:47 BP 154 / 94; Pulse 100; Resp 100; Temp 98.5(TE); Pulse Ox 100% on R/A; Weight 92.99 kg; ss Height 5 ft. 10 in. ; Pain 3/10; 14:08 BP 139 / 88; Pulse 98; Resp 18; Pulse Ox 98% on R/A; Pain 8/10; tl4 12:47 Body Mass Index 29.41 (92.99 kg, 177.8 cm) ss 12:47 Pain Scale: Adult ss 14:08 Pain Scale: Adult tl4 ED Course: 12:26 Patient arrived in ED. mg5 12:26 Maite Rausch FNP-C [facility] snw 12:26 Jeniffer Perry MD is Attending Physician. snw 12:49 Triage completed. ss 12:49 Arm band placed on right wrist. ss 13:37 Monse Boyle, RN is Primary Nurse. ss 13:38 Patient has correct armband on for positive identification. ss 13:44 Hip Right 2 View XRAY In Process Unspecified. EDMS 14:08 No provider procedures requiring assistance completed. Patient did not have IV access tl4 during this emergency room visit. 14:09 Provided Education on: ed process. tl4 Administered Medications: 14:05 CANCELLED (Patient Refused): mg IM once snw Medication: 13:38 VIS not applicable for this client. ss Outcome: 13:54 Discharge ordered by . snw 14:08 Discharged to home ambulatory, with family, tl4 14:08 Condition: stable 14:08 Discharge instructions given to patient, family, Instructed on discharge instructions, follow up and referral plans. medication usage, Demonstrated understanding of instructions, follow-up care, medications, Prescriptions given X 1, 14:09 Patient left the ED. tl4 Signatures: Dispatcher [employer] EDMS Maite Rausch, ELECTRICAL PANEL BUILDER-C ELECTRICAL PANEL BUILDER-Csnw Monse Boyle, RN RN Carlyn Castillo mg5 Camille, Reji tl4
[2023-09-05 14:17] VITALS: BP 139/88; TEMP 98.5; O2SAT 98
== END ==
LOC: ER 12:21
DX: M71.551 Other bursitis, not elsewhere classified, right hip (principal); Z88.5 Allergy status to narcotic agent; Z28.310 Unvaccinated for COVID-19

== ENCOUNTER 2024-09-05 18:47 | Emergency (ER) | payer BC, SELFPAY ==
--- OUTSIDE RECORDS SUMMARY | 2024-09-05 18:50 | XMS REPORT | Continuity of Care Document ---
Author Name Unknown Address [address] [facility] [address] [place] [address] [facility] thconnect Address [address] [facility] [place] [address] Care Team Providers Care Paper Supervisor Name Role Phone Na Gilbert DO Primary Care Physician [phone] RICH WATTS Attending Clinician Unavail able Blair ROGERS, Rich Ralph Attending Clinician [phone] NELY LR Attending Clinician Unavailab JANI Araujo Attending Clinician Unavailable Shakir GROUND HAND, Jani Thrasher Attending Clinician [phone] Yadira RODRIGEZ, Sil Ayon Attending Clinician Unavailab le Lian GUPTA, K Jemima Attending Clinician [phone] Aliya Santizo PA-C Attending Clinician [phone] Unknown, Attending Attending Clinician Unavailab le UNKNOWN, ATTENDING Attending Clinician Unavailab le Doctor Unassigned, Earle Attending Clinician U Jim Gabriel Attending Clinician [phone] NELY LR Admitting Clinician Unavailab JANI Araujo Admitting Clinician Unavailable Payers Payer Name Policy Type Policy Number Effective Date Expirati on Date Source [facility] [id number] 2019 00:00:00 [employer] [id number] 2024 00:00:00 [facility] [id number] 2023 00:00:00 Problems Condition Name Condition Details Condition Category Status Onset Date Resolution Date Last Treatment Date Treating Clinician Comments Source Acute postoperat hakan abdominal pain Acute postoperat hakan abdominal pain Disease Active 12-03 00:00: 00 [facility] Allergies, Adverse Reactions, Alerts Allergy Name Allergy Type Status Severity Reaction(s) Onset Date Inactive Date Treating Clinician Comments Source NO KNOWN ALLERGIE S Drug Class Active [facility] Social History Social Habit Start Date Stop Date Quantity Comments Source Gender identity 2023-10-23 08:00:45 Identifies as male gender (finding) [facility] Sexual orientation [facility] History of tobacco use Smokes tobacco daily [facility] Exposure to SARS-CoV-2 (event) Not sure [facility] History of Social function 2023-04-30 00:00:00 2023-04-30 00:00:00 [facility] Tobacco use and exposure 2018-10-08 00:00:00 2018-10-08 00:00:00 Smokeless tobacco non-user [facility] Sex Assigned At 1985 00:00:00 1985 00:00:00 [facility] Smoking Status Start Date Stop Date Source Never smoked tobacco Jose mckinnon [facility] Smokes tobacco daily 2018-10-08 00:00:00 [facility] Medications Ordered Medication Name Filled Medication Name Start Date Stop Date Current Medication? Ordering Clinician Indication Dosage Frequency Signature (SIG) Comments Components Source HYDROcodone -acetaminop hen (NORCO) 10-325 mg tablet 1 tablet 04-26 03:15: 00 04-26 02:08 :00 No 1{tbl} 1 tablet, Oral, ONCE, 1 dose, On 04/25/23 at 2215, Routine [facility] doxycycline hyclate (Vibramycin ) capsule 100 mg 04-26 02:15: 00 04-26 02:08 :00 No 100mg 100 mg, Oral, ONCE, 1 dose, On 04/25/23 at 2115, CURTIS
Re ason for Anti-Infec tive: Documented Infection< br>Documen isaura Infection Site: Urine
D uration of Therapy: Other (see Comments) [facility] cefTRIAXone (ROCEPHIN) 1,000 mg in NaCl 0.9% (NS) 100 mL MINI-BAG 04-26 02:15: 00 04-26 02:35 :00 No 1000mg 1,000 mg, IV Piggyback, ONCE, 1 dose, On 04/25/23 at 2115, Administer over 30 Minutes, 100 mL
Reas on for Anti-Infec tive: Documented Infection< br>Documen isaura Infection Site: Urine
D uration of Therapy: Other (see Comments) [facility] ketorolac (TORADOL) injection 30 mg 04-26 01:45: 00 04-26 00:43 :00 No 30mg 30 mg, Slow IV Push, ONCE, 1 dose, On 04/25/23 at 2045, Routine [facility] NaCl 0.9% (NS) bolus infusion 1,000 mL 04-26 00:15: 04-26 00:45 :00 No 1000mL at 999 mL/hr, 1,000 mL, IV Infusion, ONCE, 1 dose, On 04/25/23 at 1915, CURTIS [facility] phenazopyri dine 200 mg tablet 04-25 00:00: 00 Yes [id number] 200mg Take 1 tablet by mouth in the morning and 1 tablet at noon and 1 tablet in the evening. [facility] doxycycline hyclate 100 mg capsule 04-25 00:00: 00 05-10 04:59 :00 No [id number] 100mg Take 1 capsule by mouth in the morning and 1 capsule in the evening. Do all this for 14 days. [facility] codeine-gua ifenesin (ROBITUSSIN AC) 10-100 mg/5 mL solution 10 mL 12-01 02:15: 00 12-01 01:18 :00 No 10mL 10 mL, Oral, ONCE, 1 dose, 11/30/20 at 2115, CURTIS [facility] azithromyci n (ZITHROMAX) tablet 500 mg 12-01 02:15: 00 12-01 01:18 :00 No 500mg 500 mg, Oral, ONCE, 1 dose, 11/30/20 at 2115, CURTIS
Re ason for Anti-Infec tive: Documented Infection< br>Documen isaura Infection Site: Respirator y
Durat ion of Therapy: Other (see Comments)< br>Reason for Anti-Infec tive: Documented Infection< br>Documen isaura Infection Site: Respirator y [facility] inhalationa l spacing device (BREATHERIT E MDI SPACER) 11-30 00:00: 00 Yes [id number] Use as with MDI as directed [facility] albuterol 90 mcg/actuati on inhaler 11-30 00:00: 00 04-25 00:00 :00 No [id number] 2{puff} Inhale 2 Puffs every 4 (four) hours as needed for Wheezing or Shortness of Breath. [facility] inhalationa l spacing device (BREATHERIT E MDI SPACER) 11-30 00:00: 00 04-25 00:00 :00 No [id number] Use as with MDI as directed [facility] azithromyci n (ZITHROMAX Z-NOHEMI) 250 mg tablet 11-30 00:00: 00 04-25 00:00 :00 No [id number] 250mg Take 1 tablet by mouth SEE-INSTRU CTIONS. Take 500 mg day 1, then 250 mg days 2 to 5. [facility] benzonatate 200 mg capsule 11-30 00:00: 00 04-25 00:00 :00 No [id number] 200mg Take 1 capsule by mouth 3 (three) times daily as needed for Cough for up to 20 doses. [facility] ibuprofen 600 mg tablet 11-30 00:00: 00 04-25 00:00 :00 No [id number] 600mg Take 1 tablet by mouth every 6 (six) hours as needed for Pain (scale 4-6). [facility] tetracaine (PONTOCAINE ) 0.5 % ophthalmic drops 1 Drop 08-25 21:00: 00 08-25 20:36 :00 No 1[drp] 1 Drop, Right Eye, ONCE, 1 dose, 08/25/20 at 1500, Routine [facility] erythromyci n 5 mg/gram (0.5 %) ophthalmic ointment 08-25 00:00: 00 09-02 05:59 :00 No [id number] 9102 .5[in_u s] Place 0.5 Inches in right eye 2 (two) times daily for 7 days. Continue until you follow up with eye doctor. [facility] ketorolac 0.4 % ophthalmic solution 08-25 00:00: 00 09-02 05:59 :00 No [id number] 9102 1[drp] Place 1 Drop in right eye 4 (four) times daily as needed for Pain (scale 1-3) or Pain (scale 4-6) for up to 7 days. [facility] ibuprofen 600 mg tablet 08-11 00:00: 00 08-25 00:00 :00 No [id number] 600mg Take 1 tablet by mouth every 6 (six) hours as needed for Pain (scale 4-6). [facility] benzonatate 200 mg capsule 08-11 00:00: 00 08-25 00:00 :00 No [id number] 200mg Take 1 capsule by mouth 3 (three) times daily as needed for Cough for up to 20 doses. [facility] ondansetron (ZOFRAN ODT) 4 mg disintegrat ing tablet 08-11 00:00: 00 08-25 00:00 :00 No [id number] 4mg Take 1 tablet by mouth every 8 (eight) hours as needed for Nausea and Vomiting (N/V). [facility] promethazin e-dextromet horphan 6.25-15 mg/5 mL syrup 09-25 00:00: 00 08-25 00:00 :00 No [id number] 5mL Take 5 mL by mouth 3 (three) times daily. [facility] cetirizine 10 mg tablet 09-25 00:00: 00 08-25 00:00 :00 No [id number] 10mg Take 1 tablet by mouth daily. [facility] traMADol 50 mg tablet 03-18 01:41: 47 03-17 00:00 :00 No 50mg Take 50 mg by mouth every 6 (six) hours as needed. [facility] lisdexamfet amine (VYVANSE) 10 mg Cap 03-18 01:25: 47 03-17 00:00 :00 No 10mg Take 10 mg by mouth every morning. [facility] cyclobenzap rine 5 mg tablet 03-17 00:00: 00 08-25 00:00 :00 No [id number] 5mg Take 1 tablet by mouth 3 (three) times daily. [facility] traMADol (ULTRAM) 50 mg tablet 03-17 00:00: 00 08-25 00:00 :00 No [id number] 50mg Take 1 tablet by mouth every 8 (eight) hours as needed for Pain (scale 4-6). [facility] ibuprofen 600 mg tablet 03-17 00:00: 00 03-23 04:59 :00 No [id number] 600mg Take 1 tablet by mouth 4 (four) times daily as needed for Pain (scale 4-6) for up to 5 days. [facility] acetaminoph en (TYLENOL) 325 mg tablet 03-17 00:00: 00 03-23 04:59 :00 No [id number] 975mg Take 3 tablets by mouth 4 (four) times daily for 5 days. This is the maximum safe dose for a healthy adult. [facility] azithromyci n 250 mg tablet 03-17 00:00: 00 03-21 04:59 :00 No [id number] 500mg Take 2 tablets by mouth daily for 3 days. [facility] amitriptyli ne 25 mg tablet 10-08 00:00: 00 03-17 00:00 :00 No [id number] 1-2 tab at bedtime to relax muscles. [facility] Vital Signs Vital Name Observation Time Observation Value [place] [facility] Systolic blood pressure 2023-04-26 01:00:00 139 mm[Hg] [facility] Diastolic blood pressure 2023-04-26 01:00:00 76 mm[Hg] [facility] Heart rate 2023-04-26 01:00:00 91 /min [facility] Respiratory rate 2023-04-26 01:00:00 20 /min [facility] Oxygen saturation in Arterial blood by Pulse oximetry 2023-04-26 01:00:00 97 /min [facility] Body temperature 2023-04-25 23:11:00 37 [place] [facility] Body height 2023-04-25 23:11:00 180.3 cm [facility] Body weight 2023-04-25 23:11:00 92.987 kg [facility] BMI 2023-04-25 23:11:00 28.59 kg/m2 [facility] Systolic blood pressure 2020-12-01 00:46:00 154 mm[Hg] [facility] Diastolic blood pressure 2020-12-01 00:46:00 99 mm[Hg] [facility] Heart rate 2020-12-01 00:46:00 88 /[facility] Body temperature 2020-12-01 00:46:00 37.11 [place] [facility] Respiratory rate 2020-12-01 00:46:00 20 /min [facility] Body weight 2020-12-01 00:46:00 95.255 kg [facility] BMI 2020-12-01 00:46:00 29.29 kg/m2 [facility] Oxygen saturation in Arterial blood by Pulse oximetry 2020-12-01 00:46:00 97 /min [facility] Systolic blood pressure 2020-08-25 22:02:00 127 mm[Hg] [facility] Diastolic blood pressure 2020-08-25 22:02:00 95 mm[Hg] [facility] Heart rate 2020-08-25 22:02:00 75 /min [facility] Respiratory rate 2020-08-25 22:02:00 18 /min [facility] Oxygen saturation in Arterial blood by Pulse oximetry 2020-08-25 22:02:00 95 /min [facility] Body temperature 2020-08-25 20:48:00 37 [place] [facility] Body weight 2020-08-25 19:31:00 94.802 kg [facility] BMI 2020-08-25 19:31:00 29.15 kg/m2 [facility] Systolic blood pressure 2020-08-25 22:02:00 127 mm[Hg] [facility] Diastolic blood pressure 2020-08-25 22:02:00 95 mm[Hg] [facility] Heart rate 2020-08-25 22:02:00 75 /min [facility] Respiratory rate 2020-08-25 22:02:00 18 /min [facility] Oxygen saturation in Arterial blood by Pulse oximetry 2020-08-25 22:02:00 95 /min [facility] Body temperature 2020-08-25 20:48:00 37 [place] [facility] Body weight 2020-08-25 19:31:00 94.802 kg [facility] BMI 2020-08-25 19:31:00 29.15 kg/m2 [facility] Oxygen saturation in Arterial blood by Pulse oximetry 2020-08-12 02:29:00 96 /min [facility] Systolic blood pressure 2020-08-12 02:29:00 133 mm[Hg] [facility] Diastolic blood pressure 2020-08-12 02:29:00 86 mm[Hg] [facility] Heart rate 2020-08-12 02:29:00 96 /min [facility] Body temperature 2020-08-12 02:29:00 37.11 [place] [facility] Respiratory rate 2020-08-12 02:29:00 17 /min [facility] Body height 2020-08-12 01:34:00 180.3 cm [facility] Body weight 2020-08-12 01:34:00 94.802 kg [facility] BMI 2020-08-12 01:34:00 29.15 kg/m2 [facility] Oxygen saturation in Arterial blood by Pulse oximetry 2020-08-12 02:29:00 96 /min [facility] Systolic blood pressure 2020-08-12 02:29:00 133 mm[Hg] [facility] Diastolic blood pressure 2020-08-12 02:29:00 86 mm[Hg] [facility] Heart rate 2020-08-12 02:29:00 96 /min [facility] Body temperature 2020-08-12 02:29:00 37.11 [place] [facility] Respiratory rate 2020-08-12 02:29:00 17 /min [facility] Body height 2020-08-12 01:34:00 180.3 cm [facility] Body weight 2020-08-12 01:34:00 94.802 kg [facility] BMI 2020-08-12 01:34:00 29.15 kg/m2 [facility] Systolic blood pressure 2019-09-26 01:05:00 130 mm[Hg] [facility] Diastolic blood pressure 2019-09-26 01:05:00 79 mm[Hg] [facility] Heart rate 2019-09-26 01:05:00 81 /min [facility] Body temperature 2019-09-26 01:05:00 36.89 [place] [facility] Respiratory rate 2019-09-26 01:05:00 17 /min [facility] Body height 2019-09-26 01:05:00 177.8 cm [facility] Body weight 2019-09-26 01:05:00 97.251 kg [facility] BMI 2019-09-26 01:05:00 30.76 kg/m2 [facility] Oxygen saturation in Arterial blood by Pulse oximetry 2019-09-26 01:05:00 97 /min [facility] Systolic blood pressure 2019-09-26 01:05:00 130 mm[Hg] [facility] Diastolic blood pressure 2019-09-26 01:05:00 79 mm[Hg] [facility] Heart rate 2019-09-26 01:05:00 81 /min [facility] Body temperature 2019-09-26 01:05:00 36.89 [place] [facility] Respiratory rate 2019-09-26 01:05:00 17 /min [facility] Body height 2019-09-26 01:05:00 177.8 cm [facility] Body weight 2019-09-26 01:05:00 97.251 kg [facility] BMI 2019-09-26 01:05:00 30.76 kg/m2 [facility] Oxygen saturation in Arterial blood by Pulse oximetry 2019-09-26 01:05:00 97 /min [facility] Systolic blood pressure 2019-03-18 01:23:00 147 mm[Hg] [facility] Diastolic blood pressure 2019-03-18 01:23:00 95 mm[Hg] [facility] Heart rate 2019-03-18 01:23:00 88 /min [facility] Body temperature 2019-03-18 01:23:00 36.56 [place] [facility] Respiratory rate 2019-03-18 01:23:00 20 /min [facility] Body height 2019-03-18 01:23:00 177.8 cm [facility] Body weight 2019-03-18 01:23:00 95.255 kg [facility] BMI 2019-03-18 01:23:00 30.13 kg/m2 [facility] Oxygen saturation in Arterial blood by Pulse oximetry 2019-03-18 01:23:00 97 /min [facility] Systolic blood pressure 2019-03-18 01:23:00 147 mm[Hg] [facility] Diastolic blood pressure 2019-03-18 01:23:00 95 mm[Hg] [facility] Heart rate 2019-03-18 01:23:00 88 /min [facility] Body temperature 2019-03-18 01:23:00 36.56 [place] [facility] Respiratory rate 2019-03-18 01:23:00 20 /min [facility] Body height 2019-03-18 01:23:00 177.8 cm [facility] Body weight 2019-03-18 01:23:00 95.255 kg [facility] BMI 2019-03-18 01:23:00 30.13 kg/m2 [facility] Oxygen saturation in Arterial blood by Pulse oximetry 2019-03-18 01:23:00 97 /min Theresa o [facility] Procedures Procedure Date / Time Performed Performing Clinician Source EMG 2024-07-06 17:55:03 Rich Watts [facility] SCROTUM AND CONTENTS 2023-04-26 01:40:38 Korey Louis [facility] COMP. METABOLIC PANEL ([id number]) 2023-04-25 23:50:00 Jani Louis [facility] CBC WITH DIFF 2023-04-25 23:50:00 Jani Louis [facility] URINALYSIS 2023-04-25 23:50:00 Jani Louis [facility] HIV 1/2 AG-AB WITH REFLEX 2023-04-25 23:50:00 Jani Louis [facility] NOTICE OF PRIVACY PRACTICES 2023-04-25 23:04:20 Doctor Unassigned, Earle [facility] CONSENT/REFUSAL FOR DIAGNOSIS AND TREATMENT 2023-04-25 23:03:40 Doctor Unassigned, Earle [facility] NOTICE OF PRIVACY PRACTICES 2020-12-01 00:42:40 Doctor Unassigned, Earle [facility] CONSENT/REFUSAL FOR DIAGNOSIS AND TREATMENT 2020-12-01 00:42:18 Doctor Unassigned, Earle [facility] ADC,CLC OR LCC ONLY - INFLUENZA A & B DIRECT ANTIGEN 2020-08-25 20:48:00 Jani Louis [facility] COVID-19 (ID NOW RAPID TESTING) 2020-08-25 20:01:00 Jani Louis [facility] CONSENT/REFUSAL FOR DIAGNOSIS AND TREATMENT 2020-08-25 19:22:39 Doctor Unassigned, Earle [facility] COVID-19 (ID NOW RAPID TESTING) 2020-08-12 01:40:00 Dianna Núñez [facility] NOTICE OF PRIVACY PRACTICES 2020-08-12 01:14:24 Doctor Unassigned, Earle [facility] CONSENT/REFUSAL FOR DIAGNOSIS AND TREATMENT 2020-08-12 01:13:07 Doctor Unassigned, Earle [facility] POCT FLU A AND B (MOLECULAR) 2019-09-26 01:14:00 Aliya Santizo [facility] NO SHOW OR MISSED APPOINTMENT POLICY ACKNOWLEDGEMENT 2019-09-26 00:48:08 Doctor Unassigned, Earle [facility] XR ANKLE 3+ VW RIGHT 2019-03-18 01:40:31 Jose Menendez i S [facility] XR FOOT 3+ VW RIGHT 2019-03-18 01:40:09 Jim Law [facility] NOTICE OF PRIVACY PRACTICES 2019-03-18 01:10:24 Doctor Unassigned, Earle [facility] CONSENT/REFUSAL FOR DIAGNOSIS AND TREATMENT 2019-03-18 01:10:11 Doctor Unassigned, Earle [facility] Encounters Start Date/Time End Date/Time Encounter Type Admission Type Attending [facility] Care Facility Care Department Encounter ID Source 2021-06-01 16:31:[address] [facility] [id number] [facility] 2021-05-31 19:09:[address] [facility] [id number] [facility] 2021-05-31 16:19:[address] [facility] [id number] [facility] 2024-07-06 08:15:22 2024-07-06 09:20:39 Outpatient RICH WATTS [facility] [id number] EPONCHO 2024-07-06 08:15:00 2024-07-06 09:20:39 Procedure Visit Rich Watts [facility] [id number] [id number] [id number] Jose Wasserman [facility] 2023-05-04 14:10:00 2023-05-05 12:46:00 Outpatient NELY LR [facility] [id number] [facility] 2023-04-25 18:12:00 2023-04-25 21:38:00 Emergency X [facility] [id number] [facility] 2023-04-25 18:12:00 2023-04-25 21:38:00 Emergency Jani Louis [facility] 1.2.840.114 350.1.13.10 4.2.7.2.686 [id number] [facility] 2020-12-01 00:00:00 2020-12-01 00:00:00 Letter (Out) Sil May [facility] 1.2.840.114 350.1.13.10 4.2.7.2.686 [id number] [facility] 2020-11-30 19:49:00 2020-11-30 20:30:00 Emergency Lian Kristen Jemima [facility] [id number] 350.1.13.10 4.2.7.2.686 [id number] [facility] 2020-08-25 13:36:00 2020-08-25 16:07:00 Emergency Jani Louis [facility] [id number] 350.1.13.10 4.2.7.2.686 [id number] [facility] 2020-08-25 13:36:00 2020-08-25 16:07:00 Emergency Jani Louis [facility] [id number] 350.1.13.10 4.2.7.2.686 [id number] 2020-08-11 19:19:00 2020-08-11 20:47:00 Emergency Kristen Beal [facility] [id number] 350.1.13.10 4.2.7.2.686 [id number] [facility] 2020-08-11 19:19:00 2020-08-11 20:47:00 Emergency Kristen Beal [facility] 1.2.840.114 350.1.13.10 4.2.7.2.686 [id number] 2019-10-16 00:00:00 2019-10-16 00:00:00 Refill Darlyn Aliya [facility] [place] 1.2.840.114 350.1.13.10 4.2.7.2.686 [id number] [facility] 2019-10-16 00:00:00 2019-10-16 00:00:00 RefAliya Mcpherson [facility] [place] 1.2.840.114 350.1.13.10 4.2.7.2.686 [id number] 2019-09-25 18:49:07 2019-09-25 19:04:07 Urgent Care Aliya Santizo Unknown, Attending [facility] [place] 1.2.840.114 350.1.13.10 4.2.7.2.686 [id number] [facility] 2019-09-25 18:49:07 2019-09-25 19:04:07 Urgent Care Virgiluli Aliya [facility] [place] 1.2.840.114 350.1.13.10 4.2.7.2.686 [id number] 2019-09-25 18:45:00 2019-09-25 18:45:00 Outpatient R UNKNOWN, ATTENDING [facility] [id number] [facility] 2019-09-25 00:00:00 2019-09-25 00:00:00 Orders Only Doctor Unassigned, Earle [facility] 1.2.840.114 350.1.13.10 4.2.7.2.686 [id number] [facility] 2019-09-25 00:00:00 2019-09-25 00:00:00 Orders Only Doctor Unassigned, Earle [facility] 1.2.840.114 350.1.13.10 4.2.7.2.686 [id number] 2019-03-17 20:27:24 2019-03-17 21:16:00 [facility] 1.2.840.114 350.1.13.10 4.2.7.2.686 [id number] [facility] 2019-03-17 20:27:24 2019-03-17 21:16:00 [facility] 1.2.840.114 350.1.13.10 4.2.7.2.686 [id number] Results Test Description Test Time Test Comments Results Result Co mments Source [facility]. METABOLIC PANEL ([id number])2023-04-26 00:29:55* Test Item Value Reference Range Interpretation Comme nts NA (test code = 9643738441) 140 mmol/L 135-145 K (test code = 2692541441) 4.3 mmol/L 3.5-5.0 CL (test code = 6334288768) 104 mmol/L 98-108 CO2 TOTAL (test code = 2184763159) 27 mmol/L 23-31 AGAP (test code = 3953120074) 9 2-16 BUN (test code = 4013210523) 16 mg/dL 7-23 GLUCOSE (test code = 1675279352) 72 mg/dL 70-110 CREATININE (test code = 0792101180) 1.05 mg/dL 0.60-1.25 TOTAL BILI (test code = 8063764111) 0.6 mg/dL 0.1-1.1 CALCIUM (test code = 2938659512) 9.0 mg/dL 8.6-10.6 T PROTEIN (test code = 0326289124) 7.4 g/dL 6.3-8.2 ALBUMIN (test code = 7300802508) 4.3 g/dL 3.5-5.0 ALK PHOS (test code = 1791747983) 62 U/L 34-122 ALTv (test code = 1742-6) 30 U/L 5-50 AST(SGOT) (test code = 6004364726) 39 U/L 13-40 eGFR (test code = 5975632937) 79.5 mL/min/1.73m2 PHILIPPE (test code = PHILIPPE) [...] or urine or abnormalities in imaging tests). [facility] WITH [id number] 00:17:54* Test Item Value Reference Range Interpretation [...] 33.6 g/dL 31.2-35.0 RDW-SD (test code = 84561-6) 43.7 fL 38.5-51.6 RDW-CV (test code = 788-0) 13.9 % 12.1-15.4 PLT (test code = 777-3) 269 See_Comment [Automated message] The system which generated this result transmitted reference range: 150 - 328 10*3/?L. The reference range was not used to interpret this result as normal/abnormal. MPV (test code = 26165-2) 9.9 fL 9.8-13.0 NRBC/100 WBC (test code = 6045442509) 0.0 See_Comment [Automated message] The system which generated this result transmitted reference range: 0.0 - 10.0 /100 WBCs. The reference range was not used to interpret this result as normal/abnormal. NRBC x10^3 (test code = 5707325450) See_Comment [Automated message] The system which generated this result transmitted reference range: 10*3/?L. The reference range was not used to interpret this result as normal/abnormal. GRAN MAT (NEUT) % (test code = 770-8) 74.8 % IMM GRAN % (test code = 7615026527) 0.50 % LYMPH % (test code = 736-9) 13.8 % MONO % (test code = 5905-5) 9.2 % EOS % (test code = 713-8) 1.0 % BASO % (test code = 706-2) 0.7 % GRAN MAT x10^3(ANC) (test code = 9600575369) 10.25 10*3/uL 1.99-6.95 H IMM GRAN x10^3 (test code = 2531075391) 0.07 10*3/uL 0.00-0.06 H LYMPH x10^3 (test code = 731-0) 1.89 10*3/uL 1.09-3.23 MONO x10^3 (test code = 742-7) 1.26 10*3/uL 0.36-1.02 H EOS x10^3 (test code = 711-2) 0.14 10*3/uL 0.06-0.53 BASO x10^3 (test code = 704-7) 0.10 10*3/uL 0.01-0.09 H Lab Interpretation (test code = 03669-9) [facility] & B DIRECT [id number] 21:29:00* Test Item Value Reference Range Interpretation Comme nts Influenza A (test code = 26178-4) Negative Negative Influenza B (test code = 99036-8) Negative Negative Lab Interpretation (test cod e = 22374-7) [facility]2020-08-25 20:22:00* Test Item Value Reference Range Interpretation Comme nts SARS-CoV-2 Rapid ID NOW (test code = 12549-6) Not Detected Not Detected PHILIPPE (test code = PHILIPPE) ID NOW COVID-19 As say is an isothermal nucleic acid amplification test intended for the qualitative detection of nucleic acid from SARS-CoV-2 viral RNA in nasopharyngeal (GROUND HAND) specimens. It is used under Emergency Use [...] clinically indicated. Lab Interpretation (test code = 10110-4) [facility]2020-08-12 02:24:00* Test Item Value Reference Range Interpretation Comme nts SARS-CoV-2 Rapid ID NOW (test code = 00742-6) Not Detected Not Detected PHILIPPE (test code = PHILIPPE) ID NOW COVID-19 As say is an isothermal nucleic acid amplification test intended for the qualitative detection of nucleic acid from SARS-CoV-2 viral RNA in nasopharyngeal (GROUND HAND) specimens. It is used under Emergency Use [...] clinically indicated. Lab Interpretation (test code = 88582-1) [facility]2019-09-26 01:24:00* Test Item Value Reference Range Interpretation Comme nts POCT INFLUENZA A (test code = 3840) negative Negative - Negative POCT INFLUENZA B (test code = 3841) negative Negative - Negative Lab Interpretation (test cod e = 11957-1) [facility]"
[2024-09-05] MEDS ORDERED: CEPHALEXIN 250 MG CAP ONE (19:33)
--- NOTE | 2024-09-05 19:33 | EDPHYS ---
Physician Documentation [facility] Name: Raman Aragon Age: 39 yrs Sex: Male : 1985 Arrival Date: 09/05/2024 Time: 18:47 Bed Waiting Private MD: ED Physician Neo Luna HPI: 09/05 20:09 This 39 yrs old Male presents to ER via Ambulatory with complaints of Wound Check. kb 20:09 Pt is a 39 year old male who presents for drainage and redness from surgical incision. kb States he had carpal tunnel repair 2 weeks ago and thinks he overdid it. states he took the bandage off yesterday and noticed some redness and drainage. today he took the bandage off and the sutures had come out. States he had increased pain, pushed out a lot of drainage and that made it feel better. denies fever. Has full ROM. Historical: - Allergies: 19:34 Codeine; me1 - PMHx: 19:34 Anxiety; Back pain; Hypertension; me1 - PSHx: 19:34 Cholecystectomy; carpal tunnel surgery (Cholecystectomy); me1 - Immunization history:: Adult Immunizations up to date. - Infectious Disease History:: Denies. - Social history:: Smoking status: Reported history of juuling and/or vaping. ROS: 20:06 Constitutional: As per HPI kb Exam: 20:06 Constitutional: This is a well developed, well nourished patient who is awake, alert, kb and in no acute distress. Head/Face: Normocephalic, atraumatic. ENT: Moist Mucous membranes Cardiovascular: Regular rate Respiratory: Respirations even and unlabored. No increased work of breathing. Talking in full sentences MS/ Extremity: Pulses equal, no cyanosis. Neurovascular intact. Full, normal range of motion. Neuro: Awake and alert, GCS 15, oriented to person, place, time, and situation. 20:06 Skin: Wound recheck: surgical incision with sutures in place to right wrist/heel of hand, well approximated, well healing. Surgical incision to left wrist/heel of hand with slight dehiscence, mild erythema and scant drainage, no sutures in place, Vital Signs: 19:30 BP 154 / 85; Pulse 102; Resp 18; Temp 98.4; Pulse Ox 100% ; Weight 95.25 kg; Height 5 me1 ft. 10 in. ; Pain 0/10; 19:30 Body Mass Index 30.13 (95.25 kg, 177.8 cm) me1 19:30 Pain Scale: Adult me1 MDM: 18:57 Medical Screening Exam initiated kb 20:08 Differential diagnosis: cellulitis, wound infection, abscess. Data reviewed: vital kb signs, nurses notes. Counseling: I had a detailed discussion with the patient and/or guardian regarding the historical points, exam findings, and any diagnostic results supporting the discharge/admit diagnosis, the need for outpatient follow up, a orthopedic surgeon, to return to the emergency department if symptoms worsen or persist or if there are any questions or concerns that arise at home. ED course: Pt has follow up with Dr Rubio at 10AM tomorrow. Will start on oral antibiotics and pt will follow up as scheduled. Administered Medications: 19:43 Drug: Cephalexin PO 500 mg PO once Route: PO; me1 19:43 Follow up: Response: No adverse reaction me1 Disposition: 20:16 I was immediately available on-site in the Emergency Department for consultation in the ms3 care of the patient. Disposition Summary: 09/05/24 19:33 Discharge Ordered Notes: Location: Home kb Condition: Stable kb Diagnosis - Local infection of the skin and subcutaneous tissue, unspecified kb Followup: kb - With: Emergency Department - When: As needed - Reason: Worsening of condition Followup: kb - With: Private Physician - When: 2 - 3 days - Reason: Recheck today's complaints, Continuance of care, Re-evaluation by your physician Discharge Instructions: - Discharge Summary Sheet kb - Wound Infection, [id number] kb Forms: - Medication Reconciliation Form kb - Antibiotic Education kb - Prescription Opioid Use kb - Patient Portal Instructions kb - Leadership Thank You Letter kb Prescriptions: - Cephalexin 500 mg Oral Capsule - take 1 capsule ORAL route every 8 hours for 10 days; 30 capsule; Refills: 0, kb Product Selection Permitted Signatures: Dali Hodge FNP-C FNP-Neo Evangelista DO DO ms3 Amparo Sherwood, ELIA RN me1
--- NOTE | 2024-09-05 19:45 | ER ---
Nurse's Notes [facility] Name: Raman Aragon Age: 39 yrs Sex: Male : 1985 Arrival Date: 09/05/2024 Time: 18:47 Bed Waiting Private MD: Diagnosis: Local infection of the skin and subcutaneous tissue, unspecified Presentation: 09/05 19:30 Chief complaint: Patient states: he had carpal tunnel surgery bilaterally last Wednesday me1 and today left hand incision opened up and some purulent drainage ran out. Patient has f/u with Dr Rubio tomorrow. Coronavirus screen: Vaccine status: Patient reports being unvaccinated. Ebola Screen: No symptoms or risks identified at this time. Initial Sepsis Screen: Does the patient meet any 2 criteria? No. Patient's initial sepsis screen is negative. Does the patient have a suspected source of infection? No. Patient's initial sepsis screen is negative. Risk Assessment: Do you want to hurt yourself or someone else? Patient reports no desire to harm self or others. Onset of symptoms was September 05, 2024. 19:30 Method Of Arrival: Ambulatory [facility] 19:30 Acuity: JOSÉ MANUEL 4 me1 Triage Assessment: 19:34 General: Appears comfortable, well groomed, well developed, well nourished, Behavior is me1 calm, cooperative, appropriate for age. Pain: Denies pain. EENT: No signs and/or symptoms were reported regarding the EENT system. Neuro: Level of Consciousness is awake, alert, obeys commands, Oriented to person, place, time, situation, Appropriate for age. Cardiovascular: Patient's skin is warm and dry. Respiratory: Airway is patent Respiratory effort is even, unlabored, Respiratory pattern is regular, symmetrical. GI: No signs and/or symptoms were reported involving the gastrointestinal system. : No signs and/or symptoms were reported regarding the genitourinary system. Derm: Skin is healthy with good turgor, Wound noted left hand Wound is surgical incision. Musculoskeletal: No signs and/or symptoms reported regarding the musculoskeletal system. Historical: - Allergies: 19:34 Codeine; me1 - PMHx: 19:34 Anxiety; Back pain; Hypertension; me1 - PSHx: 19:34 Cholecystectomy; carpal tunnel surgery (Cholecystectomy); me1 - Immunization history:: Adult Immunizations up to date. - Infectious Disease History:: Denies. - Social history:: Smoking status: Reported history of juuling and/or vaping. Screenin:36 [facility] ED Fall Risk Assessment (Adult) History of falling in the last 3 months, me1 including since admission No falls in past 3 months (0 pts) Confusion or Disorientation No (0 pts) Intoxicated or Sedated No (0 pts) Impaired Gait No (0 pts) Mobility Assist Device Used No (0 pt) Altered Elimination No (0 pt) Score/Fall Risk Level 0 - 2 = Low Risk Maintained a safe environment, Provided non-skid footwear, Hourly rounding (assess needs \T\ fall precautionary measures) done. Abuse screen: Denies threats or abuse. Nutritional screening: No deficits noted. Tuberculosis screening: No symptoms or risk factors identified. Assessment: 19:36 Reassessment: see triage assessment. me1 Vital Signs: 19:30 BP 154 / 85; Pulse 102; Resp 18; Temp 98.4; Pulse Ox 100% ; Weight 95.25 kg; Height 5 me1 ft. 10 in. ; Pain 0/10; 19:30 Body Mass Index 30.13 (95.25 kg, 177.8 cm) me1 19:30 Pain Scale: Adult vt1 ED Course: 18:51 Patient arrived in ED. ra3 18:57 Dali Hodge FNP-C is [facility]. kb 18:57 Neo Luna DO is Attending Physician. kb 19:34 Triage completed. me1 19:34 Arm band placed on Patient placed in waiting room. me1 19:36 Patient has correct armband on for positive identification. Bed in low position. Call me1 light in reach. Side rails up X2. Provided Education on: POC. Verbalized understanding.. 19:36 No provider procedures requiring assistance completed. Patient did not have IV access me1 during this emergency room visit. 19:37 Amparo Sherwood, ELIA is Primary Nurse. me1 Administered Medications: 19:43 Drug: Cephalexin PO 500 mg PO once Route: PO; me1 19:43 Follow up: Response: No adverse reaction me1 Medication: 19:36 VIS not applicable for this client. me1 Outcome: 19:33 Discharge ordered by . kb 19:43 Discharged to home ambulatory, with significant other, me1 19:43 Condition: stable 19:43 Discharge instructions given to patient, significant other, Instructed on discharge instructions, follow up and referral plans. medication usage, Demonstrated understanding of instructions, follow-up care, medications, Prescriptions given X 1, 19:44 Patient left the ED. me1 Signatures: Dali Hodge, FORGING PRESS OPERATOR-C FORGING PRESS OPERATOR-Amparo Singh RN RN me1 Ashli Cooney 3
[2024-09-05 20:40] VITALS: BP 154/85; TEMP 98.4; O2SAT 100
== END 2024-09-05 19:44 | disposition home or self-care (01) ==
LOC: ER 18:47
DX: L08.9 Local infection of the skin and subcutaneous tissue, unspecified (principal)

== ENCOUNTER 2024-11-28 16:08 | Emergency (ER) | payer BC ==
--- OUTSIDE RECORDS SUMMARY | 2024-11-28 16:12 | XMS REPORT | Continuity of Care Document ---
Author Name Unknown Address [address] [facility] [place] [address] [facility] Address [address] [facility] 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 Role Phone Na Gilbert DO Primary Care Physician [phone] Doctor Unassigned, [place] Attending Clinician U RICH Kelly Attending Clinician Unavail able Blair ROGERS, Rich Ralph Attending Clinician [phone] NELY LR Attending Clinician Unavailab JANI Araujo Attending Clinician Unavailable Jani Louis NP Attending Clinician [phone] Yadira RODRIGEZ, Sil Ayon Attending Clinician Unavailab Kristen Alonso Attending Clinician [phone] Aliya Santizo PA-C Attending Clinician [phone] Unknown, Attending Attending Clinician Unavailab le UNKNOWN, ATTENDING Attending Clinician Unavailab le Doctor Unassigned, [place] Attending Clinician U Jim Gabriel Attending Clinician [phone] NELY LR Admitting Clinician Unavailab JANI Araujo Admitting Clinician Unavailable Payers Payer Name Policy Type Policy Number Effective Date Expirati on Date Source [facility] [id number] 2019 00:00:00 [employer] [id number] 2024 00:00:00 [place] [id number] 2023 00:00:00 Problems Condition Name Condition Details Condition Category Status Onset Date Resolution Date Last Treatment Date Treating Clinician Comments Source Acute postoperat hakan abdominal pain Acute postoperat hakan abdominal pain Disease Active 12-03 00:00: 00 [facility] Allergies, Adverse Reactions, Alerts Allergy Name Allergy Type Status Severity Reaction(s) Onset Date Inactive Date Treating Clinician Comments Source NO KNOWN ALLERGIE S Drug Class Active [facility] Social History Social Habit Start Date Stop Date Quantity Comments Source Gender identity 2023-10-23 08:00:45 Identifies as male gender (finding) [facility] Sexual orientation [facility] History of tobacco use Smokes tobacco daily [facility] History of Social function 2023-04-30 00:00:00 2023-04-30 00:00:00 [facility] Exposure to SARS-CoV-2 (event) 2020-10-31 00:00:00 2020-11-30 19:39:[address] [facility] Tobacco use and exposure 2018-10-08 00:00:00 2018-10-08 00:00:00 Smokeless tobacco non-user [facility] Sex assigned at 1985 00:00:00 1985 00:00:00 [facility] Smoking Status Start Date Stop Date Source Never smoked tobacco [facility] Tobacco smoking consumption unknown [facility] Smokes tobacco daily 2018-10-08 00:00:00 [facility] Medications Ordered Medication Name Filled Medication Name Start Date Stop Date Current Medication? Ordering Clinician Indication Dosage Frequency Signature (SIG) Comments Components Source HYDROcodone -acetaminop hen (NORCO) 10-325 mg tablet 1 tablet 04-26 03:15: 00 04-26 02:08 :00 No 1{tbl} 1 tablet, Oral, ONCE, 1 dose, On 04/25/23 at 2215, Routine [facility] doxycycline hyclate (Vibramycin ) capsule 100 mg 04-26 02:15: 00 04-26 02:08 :00 No 100mg 100 mg, Oral, ONCE, 1 dose, On 04/25/23 at 2115, CURTIS
Re ason for Anti-Infec tive: Documented Infection< br>Documen isaura Infection Site: Urine
D uration of Therapy: Other (see Comments) [facility] cefTRIAXone (ROCEPHIN) 1,000 mg in NaCl 0.9% (NS) 100 mL MINI-BAG 04-26 02:15: 00 04-26 02:35 :00 No 1000mg 1,000 mg, IV Piggyback, ONCE, 1 dose, On Wed04/25/23 at 2115, Administer over 30 Minutes, 100 mL
Reas on for Anti-Infec tive: Documented Infection< br>Documen isaura Infection Site: Urine
D uration of Therapy: Other (see Comments) [facility] ketorolac (TORADOL) injection 30 mg 04-26 01:45: 00 04-26 00:43 :00 No 30mg 30 mg, Slow IV Push, ONCE, 1 dose, On Wed04/25/23 at 2045, Routine [facility] NaCl 0.9% (NS) bolus infusion 1,000 mL 04-26 00:15: 00 04-26 00:45 :00 No 1000mL at 999 mL/hr, 1,000 mL, IV Infusion, ONCE, 1 dose, On Wed04/25/23 at 1915, CURTIS [facility] phenazopyri dine 200 mg tablet 04-25 00:00: 00 Yes [id number] 200mg Take 1 tablet by mouth in the morning and 1 tablet at noon and 1 tablet in the evening. [facility] doxycycline hyclate 100 mg capsule 04-25 00:00: 00 05-10 04:59 :00 No [id number] 100mg Take 1 capsule by mouth in the morning and 1 capsule in the evening. Do all this for 14 days. [facility] codeine-gua ifenesin (ROBITUSSIN AC) 10-100 mg/5 mL solution 10 mL 12-01 02:15: 00 12-01 01:18 :00 No 10mL 10 mL, Oral, ONCE, 1 dose, 11/30/20 at 2115, CURTIS [facility] azithromyci n (ZITHROMAX) tablet 500 mg 12-01 02:15: 00 12-01 01:18 :00 No 500mg 500 mg, Oral, ONCE, 1 dose, 11/30/20 at 2115, CURTIS
Re ason for Anti-Infec tive: Documented Infection< br>Documen isaura Infection Site: Respirator y
Durat ion of Therapy: Other (see Comments)< br>Reason for Anti-Infec tive: Documented Infection< br>Documen isaura Infection Site: Respirator y [facility] inhalationa l spacing device (BREATHERIT E MDI SPACER) 11-30 00:00: 00 Yes [id number] Use as with MDI as directed [facility] albuterol 90 mcg/actuati on inhaler 11-30 00:00: 00 04-25 00:00 :00 No [id number] 2{puff} Inhale 2 Puffs every 4 (four) hours as needed for Wheezing or Shortness of Breath. [facility] inhalationa l spacing device (BREATHERIT E MDI SPACER) 11-30 00:00: 00 04-25 00:00 :00 No [id number] Use as with MDI as directed [facility] azithromyci n (ZITHROMAX Z-NOHEMI) 250 mg tablet 11-30 00:00: 00 04-25 00:00 :00 No [id number] 250mg Take 1 tablet by mouth SEE-INSTRU CTIONS. Take 500 mg day 1, then 250 mg days 2 to 5. [facility] benzonatate 200 mg capsule 11-30 00:00: 00 04-25 00:00 :00 No [id number] 200mg Take 1 capsule by mouth 3 (three) times daily as needed for Cough for up to 20 doses. [facility] ibuprofen 600 mg tablet 11-30 00:00: 04-25 00:00 :00 No [id number] 600mg Take 1 tablet by mouth every 6 (six) hours as needed for Pain (scale 4-6). [facility] tetracaine (PONTOCAINE ) 0.5 % ophthalmic drops 1 Drop 08-25 21:00: 00 08-25 20:36 :00 No 1[drp] 1 Drop, Right Eye, ONCE, 1 dose, 08/25/20 at 1500, Routine [facility] erythromyci n 5 mg/gram (0.5 %) ophthalmic ointment 08-25 00:00: 00 09-02 05:59 :00 No [id number] 9102 .5[in_u s] Place 0.5 Inches in right eye 2 (two) times daily for 7 days. Continue until you follow up with eye doctor. [facility] ketorolac 0.4 % ophthalmic solution 08-25 00:00: 00 09-02 05:59 :00 No [id number] 9102 1[drp] Place 1 Drop in right eye 4 (four) times daily as needed for Pain (scale 1-3) or Pain (scale 4-6) for up to 7 days. [facility] ibuprofen 600 mg tablet 08-11 00:00: 00 08-25 00:00 :00 No [id number] 600mg Take 1 tablet by mouth every 6 (six) hours as needed for Pain (scale 4-6). [facility] benzonatate 200 mg capsule 08-11 00:00: 00 08-25 00:00 :00 No [id number] 200mg Take 1 capsule by mouth 3 (three) times daily as needed for Cough for up to 20 doses. [facility] ondansetron (ZOFRAN ODT) 4 mg disintegrat ing tablet 08-11 00:00: 00 08-25 00:00 :00 No [id number] 4mg Take 1 tablet by mouth every 8 (eight) hours as needed for Nausea and Vomiting (N/V). [facility] promethazin e-dextromet horphan 6.25-15 mg/5 mL syrup 09-25 00:00: 08-25 00:00 :00 No [id number] 5mL Take 5 mL by mouth 3 (three) times daily. [facility] cetirizine 10 mg tablet 09-25 00:00: 08-25 00:00 :00 No [id number] 10mg Take 1 tablet by mouth daily. [facility] traMADol 50 mg tablet 03-18 01:41: 47 03-17 00:00 :00 No 50mg Take 50 mg by mouth every 6 (six) hours as needed. [facility] lisdexamfet amine (VYVANSE) 10 mg Cap 03-18 01:25: 47 03-17 00:00 :00 No 10mg Take 10 mg by mouth every morning. [facility] cyclobenzap rine 5 mg tablet 03-17 00:00: 00 08-25 00:00 :00 No [id number] 5mg Take 1 tablet by mouth 3 (three) times daily. [facility] traMADol (ULTRAM) 50 mg tablet 03-17 00:00: 00 08-25 00:00 :00 No [id number] 50mg Take 1 tablet by mouth every 8 (eight) hours as needed for Pain (scale 4-6). [facility] ibuprofen 600 mg tablet 03-17 00:00: 00 03-23 04:59 :00 No [id number] 600mg Take 1 tablet by mouth 4 (four) times daily as needed for Pain (scale 4-6) for up to 5 days. [facility] acetaminoph en (TYLENOL) 325 mg tablet 03-17 00:00: 00 03-23 04:59 :00 No [id number] 975mg Take 3 tablets by mouth 4 (four) times daily for 5 days. This is the maximum safe dose for a healthy adult. [facility] azithromyci n 250 mg tablet 03-17 00:00: 00 03-21 04:59 :00 No [id number] 500mg Take 2 tablets by mouth daily for 3 days. [facility] amitriptyli ne 25 mg tablet 10-08 00:00: 00 03-17 00:00 :00 No [id number] 1-2 tab at bedtime to relax muscles. [facility] Vital Signs Vital Name Observation Time Observation Value Comments Chery lyles Systolic blood pressure 2023-04-26 01:00:00 139 mm[Hg] [facility] Diastolic blood pressure 2023-04-26 01:00:00 76 mm[Hg] [facility] Heart rate 2023-04-26 01:00:00 91 /min [facility] Respiratory rate 2023-04-26 01:00:00 20 /min [facility] Oxygen saturation in Arterial blood by Pulse oximetry 2023-04-26 01:00:00 97 /min [facility] Body temperature 2023-04-25 23:11:[address] [facility] Body height 2023-04-25 23:11:00 180.3 cm [facility] Body weight 2023-04-25 23:11:00 92.987 kg [facility] BMI 2023-04-25 23:11:00 28.59 kg/m2 [facility] Systolic blood pressure 2020-12-01 00:46:00 154 mm[Hg] [facility] Diastolic blood pressure 2020-12-01 00:46:00 99 mm[Hg] [facility] Heart rate 2020-12-01 00:46:00 88 /min [facility] Body temperature 2020-12-01 00:46:[address] [facility] Respiratory rate 2020-12-01 00:46:00 20 /min [facility] Body weight 2020-12-01 00:46:00 95.255 kg [facility] BMI 2020-12-01 00:46:00 29.29 kg/m2 [facility] Oxygen saturation in Arterial blood by Pulse oximetry 2020-12-01 00:46:00 97 /min [facility] Systolic blood pressure 2020-08-25 22:02:00 127 mm[Hg] [facility] Diastolic blood pressure 2020-08-25 22:02:00 95 mm[Hg] [facility] Heart rate 2020-08-25 22:02:00 75 /min [facility] Respiratory rate 2020-08-25 22:02:00 18 /min [facility] Oxygen saturation in Arterial blood by Pulse oximetry 2020-08-25 22:02:00 95 /min [facility] Body temperature 2020-08-25 20:48:[address] [facility] Body weight 2020-08-25 19:31:00 94.802 kg [facility] BMI 2020-08-25 19:31:00 29.15 kg/m2 [facility] Systolic blood pressure 2020-08-25 22:02:00 127 mm[Hg] [facility] Diastolic blood pressure 2020-08-25 22:02:00 95 mm[Hg] [facility] Heart rate 2020-08-25 22:02:00 75 /min [facility] Respiratory rate 2020-08-25 22:02:00 18 /min [facility] Oxygen saturation in Arterial blood by Pulse oximetry 2020-08-25 22:02:00 95 /min [facility] Body temperature 2020-08-25 20:48:[address] [facility] Body weight 2020-08-25 19:31:00 94.802 kg [facility] BMI 2020-08-25 19:31:00 29.15 kg/m2 [facility] Oxygen saturation in Arterial blood by Pulse oximetry 2020-08-12 02:29:00 96 /min [facility] Systolic blood pressure 2020-08-12 02:29:00 133 mm[Hg] [facility] Diastolic blood pressure 2020-08-12 02:29:00 86 mm[Hg] [facility] Heart rate 2020-08-12 02:29:00 96 /min [facility] Body temperature 2020-08-12 02:29:[address] [facility] Respiratory rate 2020-08-12 02:29:00 17 /min [facility] Body height 2020-08-12 01:34:00 180.3 cm [facility] Body weight 2020-08-12 01:34:00 94.802 kg [facility] BMI 2020-08-12 01:34:00 29.15 kg/m2 [facility] Oxygen saturation in Arterial blood by Pulse oximetry 2020-08-12 02:29:00 96 /min [facility] Systolic blood pressure 2020-08-12 02:29:00 133 mm[Hg] [facility] Diastolic blood pressure 2020-08-12 02:29:00 86 mm[Hg] [facility] Heart rate 2020-08-12 02:29:00 96 /min [facility] Body temperature 2020-08-12 02:29:[address] [facility] Respiratory rate 2020-08-12 02:29:00 17 /min [facility] Body height 2020-08-12 01:34:00 180.3 cm [facility] Body weight 2020-08-12 01:34:00 94.802 kg [facility] BMI 2020-08-12 01:34:00 29.15 kg/m2 [facility] Systolic blood pressure 2019-09-26 01:05:00 130 mm[Hg] [facility] Diastolic blood pressure 2019-09-26 01:05:00 79 mm[Hg] [facility] Heart rate 2019-09-26 01:05:00 81 /min [facility] Body temperature 2019-09-26 01:05:[address] [facility] Respiratory rate 2019-09-26 01:05:00 17 /min [facility] Body height 2019-09-26 01:05:00 177.8 cm [facility] Body weight 2019-09-26 01:05:00 97.251 kg [facility] BMI 2019-09-26 01:05:00 30.76 kg/m2 [facility] Oxygen saturation in Arterial blood by Pulse oximetry 2019-09-26 01:05:00 97 /min [facility] Systolic blood pressure 2019-09-26 01:05:00 130 mm[Hg] [facility] Diastolic blood pressure 2019-09-26 01:05:00 79 mm[Hg] [facility] Heart rate 2019-09-26 01:05:00 81 /min [facility] Body temperature 2019-09-26 01:05:[address] [facility] Respiratory rate 2019-09-26 01:05:00 17 /min [facility] Body height 2019-09-26 01:05:00 177.8 cm [facility] Body weight 2019-09-26 01:05:00 97.251 kg [facility] BMI 2019-09-26 01:05:00 30.76 kg/m2 [facility] Oxygen saturation in Arterial blood by Pulse oximetry 2019-09-26 01:05:00 97 /min [facility] Systolic blood pressure 2019-03-18 01:23:00 147 mm[Hg] [facility] Diastolic blood pressure 2019-03-18 01:23:00 95 mm[Hg] [facility] Heart rate 2019-03-18 01:23:00 88 /min [facility] Body temperature 2019-03-18 01:23:[address] [facility] Respiratory rate 2019-03-18 01:23:00 20 /min [facility] Body height 2019-03-18 01:23:00 177.8 cm [facility] Body weight 2019-03-18 01:23:00 95.255 kg [facility] BMI 2019-03-18 01:23:00 30.13 kg/m2 [facility] Oxygen saturation in Arterial blood by Pulse oximetry 2019-03-18 01:23:00 97 /min [facility] Systolic blood pressure 2019-03-18 01:23:00 147 mm[Hg] [facility] Diastolic blood pressure 2019-03-18 01:23:00 95 mm[Hg] [facility] Heart rate 2019-03-18 01:23:00 88 /min [facility] Body temperature 2019-03-18 01:23:[address] [facility] Respiratory rate 2019-03-18 01:23:00 20 /min [facility] Body height 2019-03-18 01:23:00 177.8 cm [facility] Body weight 2019-03-18 01:23:00 95.255 kg [facility] BMI 2019-03-18 01:23:00 30.13 kg/m2 [facility] Oxygen saturation in Arterial blood by Pulse oximetry 2019-03-18 01:23:00 97 /min [facility] Procedures Procedure Date / Time Performed Performing Clinician Source EMG 2024-07-06 17:55:03 Rich Watts [facility] SCROTUM AND CONTENTS 2023-04-26 01:40:[address] [facility] COMP. METABOLIC PANEL ([id number]) 2023-04-25 23:50:[address] [facility] CBC WITH DIFF 2023-04-25 23:50:00 Jani Louis [facility] URINALYSIS 2023-04-25 23:50:00 Jani Louis [facility] HIV 1/2 AG-AB WITH REFLEX 2023-04-25 23:50:[address] [facility] NOTICE OF PRIVACY PRACTICES 2023-04-25 23:04:20 Doctor Unassigned, [place] [facility] CONSENT/REFUSAL FOR DIAGNOSIS AND TREATMENT 2023-04-25 23:03:40 Doctor Unassigned, [place] [facility] NOTICE OF PRIVACY PRACTICES 2020-12-01 00:42:40 Doctor Unassigned, [place] [facility] CONSENT/REFUSAL FOR DIAGNOSIS AND TREATMENT 2020-12-01 00:42:18 Doctor Unassigned, [place] [facility] ADC,CLC OR [facility] ONLY - INFLUENZA A & B DIRECT ANTIGEN 2020-08-25 20:48:[address] [facility] COVID-19 (ID NOW RAPID TESTING) 2020-08-25 20:01:[address] [facility] CONSENT/REFUSAL FOR DIAGNOSIS AND TREATMENT 2020-08-25 19:22:39 Doctor Unassigned, [place] [facility] COVID-19 (ID NOW RAPID TESTING) 2020-08-12 01:40:00 Dianna Núñez [facility] NOTICE OF PRIVACY PRACTICES 2020-08-12 01:14:24 Doctor Unassigned, [place] [facility] CONSENT/REFUSAL FOR DIAGNOSIS AND TREATMENT 2020-08-12 01:13:07 Doctor Unassigned, [place] [facility] POCT FLU A AND B (MOLECULAR) 2019-09-26 01:14:[address] [facility] NO SHOW OR MISSED APPOINTMENT POLICY ACKNOWLEDGEMENT 2019-09-26 00:48:08 Doctor Unassigned, [place] [facility] XR ANKLE 3+ VW RIGHT 2019-03-18 01:40:31 Jose Menendez i S [facility] XR FOOT 3+ VW RIGHT 2019-03-18 01:40:[address] [facility] NOTICE OF PRIVACY PRACTICES 2019-03-18 01:10:24 Doctor Unassigned, [place] [facility] CONSENT/REFUSAL FOR DIAGNOSIS AND TREATMENT 2019-03-18 01:10:11 Doctor Unassigned, [place] [facility] FL CHOLANGIOGRAM OR 2016-12-03 17:07:[address] [facility] HOSPITAL ADMISSION 2016-12-03 05:01:00 Doctor Un assigned, [place] [facility] Encounters Start Date/Time End Date/Time Encounter Type Admission Type Attending Clinicians Care Facility Care Department Encounter ID Source 2021-06-01 16:31:56 Emergency [facility] [id number] [facility] 2021-05-31 19:09:42 Emergency [facility] [id number] [facility] 2021-05-31 16:19:38 Emergency [facility] [id number] [facility] 2016-12-03 00:00:00 2024-09-16 03:49:50 Orders Only Doctor Unassigned, [place] Doctor Unassigned, [place] [facility] 1.2.840.114 350.1.13.10 4.2.7.2.686 [id number] [facility] 2024-07-06 08:15:22 2024-07-06 09:20:39 Outpatient RICH WATTS [facility] [id number] EOUT 2024-07-06 08:15:00 2024-07-06 09:20:39 Procedure Visit Blair Rich Ralph [place] 1.2.840.114 350.1.13.70 8.2.7.2.686 [id number] Jose ino [facility] 2023-05-04 14:10:00 2023-05-05 12:46:00 Outpatient NELY LR [facility] [id number] [facility] 2023-04-25 18:12:00 2023-04-25 21:38:00 Emergency X JANI LOUIS [facility] ERT [id number] [facility] 2023-04-25 18:12:00 2023-04-25 21:38:00 Emergency Jani Louis G [facility] 1.2.840.114 350.1.13.10 4.2.7.2.686 [id number] [facility] 2020-12-01 00:00:00 2020-12-01 00:00:00 Letter (Out) Sil May [facility] 1.2.840.114 350.1.13.10 4.2.7.2.686 [id number] [facility] 2020-11-30 19:49:00 2020-11-30 20:30:00 Emergency Kristen Beal [facility] 1.2.840.114 350.1.13.10 4.2.7.2.686 [id number] [facility] 2020-08-25 13:36:00 2020-08-25 16:07:00 Emergency Jani Louis [facility] 1.2.840.114 350.1.13.10 4.2.7.2.686 [id number] [facility] 2020-08-25 13:36:00 2020-08-25 16:07:00 Emergency Jani Louis [facility] 1.2.840.114 350.1.13.10 4.2.7.2.686 [id number] 2020-08-11 19:19:00 2020-08-11 20:47:00 Emergency Kristen Beal [facility] 1.2.840.114 350.1.13.10 4.2.7.2.686 [id number] [facility] 2020-08-11 19:19:00 2020-08-11 20:47:00 Emergency Kristen Beal [facility] 1.2.840.114 350.1.13.10 4.2.7.2.686 [id number] 2019-10-16 00:00:00 2019-10-16 00:00:00 Aliya Cote [facility] 1.2.840.114 350.1.13.10 4.2.7.2.686 [id number] [facility] 2019-10-16 00:00:00 2019-10-16 00:00:00 Aliya Cote [facility] 1.2.840.114 350.1.13.10 4.2.7.2.686 [id number] 2019-09-25 18:49:07 2019-09-25 19:04:07 Urgent Care Aliya Santizo, Attending [facility] 1.2.840.114 350.1.13.10 4.2.7.2.686 [id number] [facility] 2019-09-25 18:49:07 2019-09-25 19:04:07 Urgent Care Aliya Santizo [facility] [place] 1.2.840.114 350.1.13.10 4.2.7.2.686 [id number] 2019-09-25 18:45:00 2019-09-25 18:45:00 Outpatient R UNKNOWN, ATTENDING [facility] [id number] [facility] 2019-09-25 00:00:00 2019-09-25 00:00:00 Orders Only Doctor Unassigned, [place] [facility] 1.2.840.114 350.1.13.10 4.2.7.2.686 [id number] [facility] 2019-09-25 00:00:00 2019-09-25 00:00:00 Orders Only Doctor Unassigned, [place] [facility] 1.2.840.114 350.1.13.10 4.2.7.2.686 [id number] 2019-03-17 20:27:24 2019-03-17 21:16:00 Emergency Jim Law [facility] 1.2.840.114 350.1.13.10 4.2.7.2.686 [id number] [facility] 2019-03-17 20:27:24 2019-03-17 21:16:00 Emergency Jim Law [facility] 1.2.840.114 350.1.13.10 4.2.7.2.686 [id number] Results Test Description Test Time Test Comments Results Result Co mments Source [facility] ([id number][facility]2023-04-26 00:29:55* Test Item Value Reference Range Interpretation Comme nts NA (test code = 9333981083) 140 mmol/L 135-145 K (test code = 6383702765) 4.3 mmol/L 3.5-5.0 CL (test code = 9184899302) 104 mmol/L 98-108 CO2 TOTAL (test code = 3458137593) 27 mmol/L 23-31 AGAP (test code = 6789137801) 9 2-16 BUN (test code = 0855139309) 16 mg/dL 7-23 GLUCOSE (test code = [id number]) 72 mg/dL 70-110 CREATININE (test code = 4462188508) 1.05 mg/dL 0.60-1.25 TOTAL BILI (test code = 5148277025) 0.6 mg/dL 0.1-1.1 CALCIUM (test code = 9808010767) 9.0 mg/dL 8.6-10.6 T PROTEIN (test code = 5162433769) 7.4 g/dL 6.3-8.2 ALBUMIN (test code = 1231636485) 4.3 g/dL 3.5-5.0 ALK PHOS (test code = 2764865522) 62 U/L 34-122 ALTv (test code = 1742-6) 30 U/L 5-50 AST(SGOT) (test code = 3360075797) 39 U/L 13-40 eGFR (test code = 4152771170) 79.5 mL/min/1.73m2 PHILIPPE (test code = PHILIPPE) [...] or urine or abnormalities in imaging tests). [facility] WITH [id number] 00:17:54* Test Item Value Reference Range Interpretation [...] 33.6 g/dL 31.2-35.0 RDW-SD (test code = 16355-9) 43.7 fL 38.5-51.6 RDW-CV (test code = 788-0) 13.9 % 12.1-15.4 PLT (test code = 777-3) 269 See_Comment [Automated message] The system which generated this result transmitted reference range: 150 - 328 10*3/?L. The reference range was not used to interpret this result as normal/abnormal. MPV (test code = 99267-5) 9.9 fL 9.8-13.0 NRBC/100 WBC (test code = 4564596205) 0.0 See_Comment [Automated message] The system which generated this result transmitted reference range: 0.0 - 10.0 /100 WBCs. The reference range was not used to interpret this result as normal/abnormal. NRBC x10^3 (test code = 6519836691) See_Comment [Automated message] The system which generated this result transmitted reference range: 10*3/?L. The reference range was not used to interpret this result as normal/abnormal. GRAN MAT (NEUT) % (test code = 770-8) 74.8 % IMM GRAN % (test code = 2644067722) 0.50 % LYMPH % (test code = 736-9) 13.8 % MONO % (test code = 5905-5) 9.2 % EOS % (test code = 713-8) 1.0 % BASO % (test code = 706-2) 0.7 % GRAN MAT x10^3(ANC) (test code = 0910128518) 10.25 10*3/uL 1.99-6.95 H IMM GRAN x10^3 (test code = 6818614548) 0.07 10*3/uL 0.00-0.06 H LYMPH x10^3 (test code = 731-0) 1.89 10*3/uL 1.09-3.23 MONO x10^3 (test code = 742-7) 1.26 10*3/uL 0.36-1.02 H EOS x10^3 (test code = 711-2) 0.14 10*3/uL 0.06-0.53 BASO x10^3 (test code = 704-7) 0.10 10*3/uL 0.01-0.09 H Lab Interpretation (test code = 00409-7) [facility]normal [facility] A & B DIRECT [id number] 21:29:00* Test Item Value Reference Range Interpretation Comme nts Influenza A (test code = 33534-8) Negative Negative Influenza B (test code = 56925-0) Negative Negative Lab Interpretation (test cod e = 32027-9) [facility]-19 (ID NOW RAPID TESTING)2020-08-25 20:22:00* Test Item Value Reference Range Interpretation Comme [facility] SARS-CoV-2 Rapid ID NOW (test code = 00009-2) Not Detected Not Detected PHILIPPE (test code = PHILIPPE) ID NOW COVID-19 As say is an isothermal nucleic acid amplification test intended for the qualitative detection of nucleic acid from SARS-CoV-2 viral RNA in nasopharyngeal (ONLINE MERCHANDISING COORDINATOR) specimens. It is used under Emergency Use Authorization (EUA) by [facility]. The limit of detection (LOD) of the [...] clinically indicated. Lab Interpretation (test code = 40972-7) [facility]-19 (ID NOW RAPID TESTING)2020-08-12 02:24:00* Test Item Value Reference Range Interpretation Comme [facility] SARS-CoV-2 Rapid ID NOW (test code = 56812-4) Not Detected Not Detected PHILIPPE (test code = PHILIPPE) ID NOW COVID-19 As say is an isothermal nucleic acid amplification test intended for the qualitative detection of nucleic acid from SARS-CoV-2 viral RNA in nasopharyngeal (ONLINE MERCHANDISING COORDINATOR) specimens. It is used under Emergency Use Authorization (EUA) by [facility]. The limit of detection (LOD) of the [...] clinically indicated. Lab Interpretation (test code = 01585-1) Normal [facility]2019-09-26 01:24:00* Test Item Value Reference Range Interpretation Comme nts POCT INFLUENZA A (test code = 3840) negative Negative - Negative POCT INFLUENZA B (test code = 3841) negative Negative - Negative Lab Interpretation (test cod e = 45635-9) Normal [facility]OL[facility], [id number] 17:09:00 *.*.*.*.*.*.*.*.*.*.*.*.*.*FINAL*.*.*.*.*.*.*.*.*.*.*.*.*.*.*EXAM: Intraoperative glandular exam HISTORY: Cholecystitis TECHNIQUE: Multiple fluoroscopic spot views of an intraoperative glandular examis submitted. FINDINGS: The common bile duct, common hepatic duct and proximal intrahepaticbile ducts are normal in caliber. No filling defects or stricture is seen.Contrast is noted to freely flow into the duodenum. 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 male. EMG Date/Time: 07/06/2024 5:55 PM Performed by: Rich Watts MD Authorized by: Rich Watts MD Indications: Indications: Hand pain, carpal tunnel Procedure specific details: Nerve conduction study of bilateral upper extremities Motor studies The right ulnar nerve demonstrates normal latency at 2.8 ms, normal amplitude at 5.2 mV at the wrist and 5 mV above the elbow. Conduction velocity is normal at 53.7 m/s. The left ulnar nerve demonstrates normal latency at 2.7 ms, normal amplitude at 6.8 mV at the wrist and 7.5 mV above the elbow. Conduction velocity is normal at 57.8 m/s. The right median nerve demonstrates prolonged latency at 5.9 ms, depressed amplitude at 3.8 mV and normal conduction velocity at 56.6 m/s. The left median nerve demonstrates prolonged latency at 9.2 ms, depressed amplitude at 3.3 mV and borderline conduction velocity at 49.2 m/s. Sensory studies The right ulnar nerve demonstrates normal latency at 2.8 ms, normal amplitude at 11 ?V and normal conduction velocity at 54.5 m/s. The left ulnar nerve demonstrates normal latency at 2.5 ms, normal amplitude at 12.3 ?V and normal conduction velocity at 69.4 m/s. The right median nerve demonstrates prolonged latency at 4.8 ms, depressed amplitude at 4.3 ?V and decreased conduction velocity at 41.3 m/s. The left median nerve demonstrates prolonged latency at 5.7 ms, depressed amplitude at 6.7 ?V and decreased conduction velocity at 34.8 m/s. Interpretation Abnormal study of bilateral median nerves, prolonged latencies, depressed amplitudes and depressed sensory velocities. The above is consistent with moderate right carpal tunnel syndrome and severe left carpal tunnel syndrome. Electromyogram of bilateral upper extremities Right upper extremity In the deltoid, bicep, tricep, extensor digitorum communis and first dorsal interosseous insertional activity was normal. There was no abnormal resting activity. Voluntary contraction demonstrated normal recruitment and a full interference pattern. Motor unit size and duration was normal. In the APB insertional activity was normal. There was no abnormal resting activity. Voluntary contraction demonstrated limited recruitment and a reduced interference pattern. Motor unit size and duration was normal. Left upper extremity In the deltoid, bicep, tricep, extensor digitorum communis and first dorsal interosseous insertional activity was normal. There was no abnormal resting activity. Voluntary contraction demonstrated normal recruitment and a full interference pattern. Motor unit size and duration was normal. In the APB insertional activity was normal. There was no abnormal resting activity. Voluntary contraction demonstrated limited recruitment and a reduced interference pattern. Motor unit size and duration was normal. Interpretation Chronic neurogenic changes in bilateral APB's consistent with a clinical diagnosis of bilateral carpal tunnel syndrome. 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
--- NOTE | 2024-11-28 17:23 | RAD REPORT ---
EXAM: Chest Single View HISTORY: 39 years Male CHEST PAIN COMPARISON: 11/04/2020 FINDINGS: LUNGS/PLEURA: The lungs are clear. No pleural effusions or pneumothorax. No pulmonary edema. CARDIAC/MEDIASTINUM: The cardiac silhouette is within normal limits. UPPER ABDOMEN: No significant abnormality. BONES: No acute abnormality. LINES/TUBES/OTHER: N/A IMPRESSION: No evidence of acute cardiopulmonary disease.
[2024-11-28 18:05] LABS: Absolute Basophils 0.1 K/uL (0-0.5); Absolute Eosinophils 0.2 K/uL (0-0.5); Absolute Lymphocytes (CBC) 2.2 K/uL (0.7-4.9); Absolute Monocytes 0.5 K/uL (0.1-1.3); Absolute Neutrophil 2.6 K/uL (1.8-8.0); Hematocrit 41.7 % (39.6-49.0); Hemoglobin 14.4 g/dL (13.6-17.9); Lymphocytes % 39.9 % (15.3-44.8); MCH 28.9 pg (27.0-35.0); MCHC 34.7 g/dL (32.0-36.0); MCV 83.4 fL (80-100); MPV 7.8 fL (7.6-11.3); Monocytes % 9.6 % (3.3-12.3); Neutrophils % 46.5 % (41.7-73.7); Nucleated Red Blood Cells % 0.2 % (0-0); Platelets 231 thou/uL (152-406); Red Cell Distribution Width 13.1 % (12.1-15.2)
[2024-11-28 18:32] LABS: ALT/SGPT 26 U/L (16-61); AST/SGOT 12 U/L (15-37); Albumin 3.6 g/dL (3.4-5.0); Albumin/Globulin Ratio 1.1 (1.1-1.8); Alkaline Phosphatase 75 U/L (45-117); Anion Gap 6.7 mEq/L (5.0-15.0); BUN Blood Urea Nitrogen 14 mg/dL (7-18); Bicarbonate 30 mEq/L (21-32); Bilirubin Total 0.2 mg/dL (0.2-1.0); Globulin 3.3 g/dL (2.3-3.5); Glomerular Filtration Rate 70 ml/min (=/>90); Glucose Level 93 mg/dL (74-106); NT PRO-BNP 9 pg/mL (<125); Potassium 3.7 mEq/L (3.5-5.1); Protein, Total 6.9 g/dL (6.4-8.2); Sodium Level 139 mEq/L (136-145); Troponin High Sensitivity 16.4 pg/mL (<58.9)
[2024-11-28 18:36] LABS: Bilirubin Direct < 0.2 mg/dL (0-0.2)
--- NOTE | 2024-11-28 19:20 | ER ---
Nurse's Notes [facility] Name: Raman Aragon Age: 39 yrs Sex: Male : 1985 Arrival Date: 11/28/2024 Time: 16:08 Bed DX3 Private MD: Diagnosis: Chest pain, unspecified Presentation: 11/28 16:32 Chief complaint: Patient states: Chest pain began 45 min ago - heavy, stabbing, hard to ld1 breathe, feeling flushed, ears on fire. Coronavirus screen: At this time, the client does not indicate any symptoms associated with coronavirus-19. Ebola Screen: No symptoms or risks identified at this time. Initial Sepsis Screen: Does the patient meet any 2 criteria? No. Patient's initial sepsis screen is negative. Does the patient have a suspected source of infection? No. Patient's initial sepsis screen is negative. Risk Assessment: Do you want to hurt yourself or someone else? Patient reports no desire to harm self or others. Onset of symptoms was November 28, 2024 at 16:33. 16:32 Method Of Arrival: Ambulatory ld1 16:32 Acuity: JOSÉ MANUEL 3 ld1 Triage Assessment: 16:33 General: Appears in no apparent distress. uncomfortable, Behavior is cooperative, ld1 anxious. Pain: Complains of pain in chest Pain does not radiate. Pain currently is 3 out of 10 on a pain scale. Quality of pain is described as heavy, Pain began suddenly. EENT: No signs and/or symptoms were reported regarding the EENT system. Neuro: Level of Consciousness is awake, alert, obeys commands, Oriented to person, place, time, situation. Cardiovascular: Capillary refill < 3 seconds Patient's skin is warm and dry. Respiratory: Airway is patent Respiratory effort is even, unlabored. GI: Abdomen is round non-distended. : No signs and/or symptoms were reported regarding the genitourinary system. Derm: No signs and/or symptoms reported regarding the dermatologic system. Musculoskeletal: No signs and/or symptoms reported regarding the musculoskeletal system. Historical: - Allergies: 16:33 Codeine; ld1 - PMHx: 16:33 Anxiety; Back pain; Hypertension; ld1 - PSHx: 16:33 carpal tunnel surgery (ys); Cholecystectomy; ld1 - Immunization history:: Adult Immunizations up to date. - Infectious Disease History:: Denies. - Social history:: Smoking status: Patient denies any tobacco usage or history of. - Family history:: not pertinent. - Hospitalizations: : No recent hospitalization is reported. Screenin:30 [facility] ED Fall Risk Assessment (Adult) History of falling in the last 3 months, vc1 including since admission No falls in past 3 months (0 pts) Confusion or Disorientation No (0 pts) Intoxicated or Sedated No (0 pts) Impaired Gait No (0 pts) Mobility Assist Device Used No (0 pt) Altered Elimination No (0 pt) Score/Fall Risk Level 0 - 2 = Low Risk Oriented to surroundings, Maintained a safe environment, Educated pt \T\ family on fall prevention, incl call for assistance when getting out of bed, Hourly rounding (assess needs \T\ fall precautionary measures) done. Abuse screen: Denies threats or abuse. Nutritional screening: No deficits noted. Tuberculosis screening: No symptoms or risk factors identified. Assessment: 16:35 Reassessment: ERP in triage assessing patient. EKG completed. ld1 19:31 Reassessment: Patient and/or family updated on plan of care and expected duration. Pain vc1 level reassessed. Patient is alert, oriented x 3, equal unlabored respirations, skin warm/dry/pink. Patient states feeling better. Patient states symptoms have improved. Vital Signs: 16:32 BP 173 / 87; Pulse 78; Resp 18; Temp 97.6(TE); Pulse Ox 98% on R/A; Weight 95.25 kg; ld1 Height 5 ft. 11 in. ; Pain 8/10; 19:31 BP 154 / 80; Pulse 81; Resp 18; Temp 97; Pulse Ox 95% ; vc1 16:32 Body Mass Index 29.29 (95.25 kg, 180.34 cm) ld1 16:32 Pain Scale: Adult ld1 ED Course: 16:23 Patient arrived in ED. cj3 16:31 Zion Vega MD is Attending Physician. rn 16:33 Triage completed. ld1 16:33 Arm band placed on right wrist. ld1 17:21 XRAY Chest (1 view) In Process Unspecified. EDMS 18:00 Inserted saline lock: 18 gauge in left antecubital area, using aseptic technique. Blood ld1 collected. Flushed with 10 mL NS. 19:31 No provider procedures requiring assistance completed. IV discontinued, intact, vc1 bleeding controlled, No redness/swelling at site. Pressure dressing applied. Patient maintains SpO2 saturation greater than 95% on room air. 19:32 Provided Education on: f/u with cardiology. vc1 Administered Medications: 19:13 Not Given (Patient Refused): [id number] mg IVP once ld1 Medication: 19:31 VIS not applicable for this client. vc1 Outcome: :19 Discharge ordered by . rn 19:31 Discharged to home ambulatory, vc1 19:31 Condition: stable 19:31 Discharge instructions given to patient, Instructed on discharge instructions, follow up and referral plans. medication usage, Demonstrated understanding of instructions, follow-up care, medications, Prescriptions given X 1, :32 Patient left the ED. vc1 Signatures: Dispatcher [employer] EDMS Zion Vega MD MD rn Sims, Lauren, RN RN ld1 Lakshmi Mcdonald RN RN vc1 Diya Cm 3
--- NOTE | 2024-11-28 19:20 | EDPHYS ---
Physician Documentation [facility] Name: Raman Aragon Age: 39 yrs Sex: Male : 1985 Arrival Date: 11/28/2024 Time: 16:08 Bed DX3 Private MD: ED Physician Zion Vega HPI: 11/28 16:56 This 39 yrs old Male presents to ER via Ambulatory with complaints of Chest Pain, Arm rn Pain. 16:56 The patient or guardian reports chest pain that is located primarily in the anterior rn chest wall, left. 18:31 Patient reports has been having chest pain intermittently for months.. rn 18:31 The pain does not radiate. The chest pain is described as sharp, stabbing. The patient rn has experienced similar episodes in the past. Patient reports intermittent chest pain for months, started again 45 minutes ago, reports flushing sensation to face and ears, feels like his peers are on fire. No difficulty breathing. Does vape. No trauma. No hemoptysis. No history of DVT or PE. Denies abdominal pain. Has family history of ME in their 40s. Denies drug use. Denies any known cardiac problems. Historical: - Allergies: 16:33 Codeine; ld1 - PMHx: 16:33 Anxiety; Back pain; Hypertension; ld1 - PSHx: 16:33 carpal tunnel surgery (ys); Cholecystectomy; ld1 - Immunization history:: Adult Immunizations up to date. - Infectious Disease History:: Denies. - Social history:: Smoking status: Patient denies any tobacco usage or history of. - Family history:: not pertinent. - Hospitalizations: : No recent hospitalization is reported. ROS: 18:31 Constitutional: Negative for fever, chills, and weight loss, Cardiovascular: Positive rn for chest pain Respiratory: Negative for shortness of breath, cough, wheezing, and pleuritic chest pain, Abdomen/GI: Negative for abdominal pain, nausea, vomiting, diarrhea, and constipation, MS/Extremity: Negative for injury and deformity, Skin: Negative for injury, rash, and discoloration, Neuro: Negative for headache, weakness, numbness, tingling, and seizure, Exam: 18:31 Constitutional: This is a well developed, well nourished patient who is awake, alert, rn and in no acute distress. Cardiovascular: Regular rate and rhythm. No pulse deficits. Respiratory: No increased work of breathing, no retractions or nasal flaring. Abdomen/GI: Soft, non-tender Neuro: Awake and alert, GCS 15 19:12 ECG was reviewed by the Attending Physician. rn Vital Signs: 16:32 BP 173 / 87; Pulse 78; Resp 18; Temp 97.6(TE); Pulse Ox 98% on R/A; Weight 95.25 kg; ld1 Height 5 ft. 11 in. ; Pain 8/10; 19:31 BP 154 / 80; Pulse 81; Resp 18; Temp 97; Pulse Ox 95% ; vc1 16:32 Body Mass Index 29.29 (95.25 kg, 180.34 cm) ld1 16:32 Pain Scale: Adult ld1 MDM: 16:31 Medical Screening Exam initiated rn 19:18 Differential diagnosis: acute myocardial infarction, acute pericarditis, anxiety, rn coronary artery disease chest wall pain, costochondritis, pleurisy, pneumothorax, stable angina, unstable angina. HEART Score: History: Slightly Suspicious (0), ECG: Normal (0), Age: < or = 45 years (0), Risk Factors: 1 or 2 risk factors (1), Troponin: < or = 1 x Normal Limit (0), Total Score = 1. Data reviewed: vital signs, nurses notes, lab test result(s), EKG, radiologic studies, plain films, and as a result, I will discharge patient. Consideration of Admission/Observation Escalation of care including admission/observation considered. Admission and escalation considered but patient states would rather workup as an outpatient patient. He is in the middle of make an appointment with his PCP and cardiology.. Independent interpretation of the following test(s) in the Emergency Department EKG: See my EKG interpretation above X-Ray: My interpretation is Chest x-ray images negative for pneumonia or pneumothorax.. Counseling: I had a detailed discussion with the patient and/or guardian regarding the historical points, exam findings, and any diagnostic results supporting the discharge/admit diagnosis, lab results, radiology results. ED course: Patient requested his IV be removed. Declines any pain medication. States he will follow-up with PCP and cardiology. I have personally reviewed all of the results, including but not limited to blood tests and imaging deemed necessary to safely discharge this patient at this time. All results given to and printed out for patient. I personally went over all the results with the patient and answered all questions. Patient will follow-up with PCP and or specialist as discussed. Return precautions given and understood.. 19:20 Counseling: I had a detailed discussion with the patient and/or guardian regarding the rn presence of at least one elevated blood pressure reading (>120/80) during this emergency department visit. Special discussion: I have referred the patient to see his PCP for further evaluation of high blood pressure. 11/28 16:32 Order name: Basic Metabolic Panel; Complete Time: 18:47 rn 11/28 16:32 Order name: CBC with Diff; Complete Time: 18:23 rn 11/28 16:32 Order name: LFT's; Complete Time: 18:47 rn 11/28 16:32 Order name: NT PRO-BNP; Complete Time: 18:47 rn 11/28 16:32 Order name: Troponin HS; Complete Time: 18:47 rn 11/28 16:38 Order name: D-Dimer; Complete Time: 18:47 ld1 11/28 16:32 Order name: XRAY Chest (1 view); Complete Time: 18:23 rn 11/28 16:32 Order name: EKG - Nurse/Tech; Complete Time: 16:35 rn 11/28 16:32 Order name: IV Saline Lock; Complete Time: 18:00 rn 11/28 16:32 Order name: Labs collected and sent; Complete Time: 18:00 rn 11/28 16:32 Order name: O2 Per Protocol; Complete Time: 18:00 rn 11/28 16:32 Order name: O2 Sat Monitoring; Complete Time: 18:00 rn EC:12 Rate is 83 beats/min. Rhythm is regular. QRS [place] is Normal. MT interval is normal. QRS rn interval is normal. QT interval is normal. No Q waves. T waves are Normal. No ST changes noted. Clinical impression: NSR w/ Non-specific ST/T Changes. Interpreted by me. Reviewed by me. Administered Medications: 19:13 Not Given (Patient Refused): [id number] mg IVP once ld1 Disposition Summary: 11/28/24 19:19 Discharge Ordered Notes: Location: Home rn Problem: new rn Symptoms: have improved rn Condition: Stable rn Diagnosis - Chest pain, unspecified rn Followup: rn - With: Private Physician - When: As needed - Reason: Recheck today's complaints, Re-evaluation by your physician Discharge Instructions: - Discharge Summary Sheet rn - Nonspecific Chest Pain, Adult rn - Hypertension, Adult rn Forms: - Medication Reconciliation Form rn - Antibiotic frit mixer and burner - Prescription Opioid Use rn - Patient Portal Instructions rn - Leadership Thank You Letter rn Prescriptions: - Lisinopril 10 mg Oral Tablet - take 1 tablet ORAL route once daily; 20 tablet; Refills: 0, Product Selection rn Permitted Signatures: Dispatcher [employer] EDMS Zion Vega MD MD rn Sims, Lauren, RN RN ld1 Corrections: (The following items were deleted from the chart) 16:33 16:33 BASIC METABOLIC PANEL+C.LAB.BRZ ordered. EDMS EDMS 16:33 16:33 CBC+H.LAB.BRZ ordered. EDMS EDMS 16:33 16:33 HEPATIC FUNCTION+C.LAB.BRZ ordered. EDMS EDMS 16:33 16:33 PROBNP+C.LAB.BRZ ordered. EDMS EDMS 16:33 16:33 Troponin High Sensitivity+C.LAB.BRZ ordered. EDMS EDMS 16:33 16:33 Chest Single View+RAD.RAD.BRZ ordered. EDMS EDMS
[2024-11-29 07:23] VITALS: BP 154/80; TEMP 97; O2SAT 95
--- NOTE | 2024-11-29 12:35 | EKG ---
Test Date: 2024-11-28 Test Time: 16:31:19 [employer] Checker: Anupama REYES MEASUREMENT RESULTS: Intervals: Rate: 83 AL: 130 QRSD: 104 QT: 350 QTc: 411 [place]: P: 48 AL: 130 QRS: 72 T: 16 INTERPRETIVE STATEMENTS: Normal sinus rhythm Nonspecific T wave abnormality Abnormal ECG Compared to ECG 11/04/2020 12:27:11 No significant changes Electronically Signed On 11-29-24 12:33:40 CDT by Avni Gonzales
== END 2024-11-28 19:32 | disposition home or self-care (01) ==
LOC: ER 16:08
DX: R07.9 Chest pain, unspecified (principal); I10 Essential (primary) hypertension; F41.9 Anxiety disorder, unspecified
CPT/HCPCS: 36415; 71045; 80048; 80076; 83880; 84484; 85025; 85379; 93005